=== PATIENT | male | born 1995 | race Caucasian/White ===

== ENCOUNTER 2021-08-23 20:57 | Inpatient (IN) | payer OTHER ==
--- NOTE | 2021-08-23 23:59 | ED ---
URI HPI - General Chief Complaint: Upper Respiratory Infection Stated Complaint: Cough,Congestion Time Seen by Provider: 08/23/21 23:26 Source: patient Mode of arrival: ambulatory Limitations: no limitations - History of Present Illness Initial Comments: This patient is 26-year-old man presents with cough that is been going on since sometime in June. The patient also had some left-sided chest pain that radiated up towards the neck but that was a few weeks ago. He states that he did some Internet research and feels that the symptoms were consistent with pleuritis. The pains have resolved now. Patient states that initially there was only clear sputum. Recently he has had some yellowish sputum and states that there is a foul odor. The patient did see a new primary physician a few weeks ago for this and felt that at the time symptoms seem to be due to ALLERGIES. He has taken a course medication without much relief. Then the sputum change occurred so he presents here for reevaluation. MD Complaint: cough Onset/Timin -: month(s) Severity: moderate Severity scale (1-10): 0 Consistency: now resolved Improves With: nothing Worsens With: nothing Associated Symptoms: cough Treatments Prior to Arrival: none - Related Data Home Medications Medication Instructions Recorded Confirmed Albuterol Sulfate [Proair Hfa] 1 - 2 puff INHALATION RT-Q6H PRN 08/24/21 08/24/21 Budesonide-Formot 160-4.5 Mcg 2 puff INHALATION RT-BID 08/24/21 08/24/21 [Symbicort 160-4.5 Mcg Inhaler] Buprenorphine/Naloxone 8Mg/2Mg 1 film SL BID 08/24/21 08/24/21 [Suboxone 8-2Mg Film] Cetirizine HCl 10 mg PO DAILY PRN 08/24/21 08/24/21 Divalproex Sodium [Depakote] 125 mg PO TID 08/24/21 08/24/21 Divalproex Sodium [Depakote] 500 mg PO TID 08/24/21 08/24/21 Ergocalciferol [Vitamin D2 (1250 1,250 mcg PO Q7D 08/24/21 08/24/21 Mcg = 97790 Iu)] FLUoxetine HCL [PROzac] 20 mg PO DAILY 08/24/21 08/24/21 OLANZapine [ZyPREXA] 10 mg PO HS 08/24/21 08/24/21 hydrOXYzine HCL [Atarax] 25 mg PO TID 08/24/21 08/24/21 Allergies Allergy/AdvReac Type Severity Reaction Status Date / Time No Known Allergies Allergy Verified 08/24/21 08:31 Review of Systems ROS Statement: Those systems with pertinent positive or pertinent negative responses have been documented in the HPI. ROS Other: All systems not noted in ROS Statement are negative. Constitutional: Denies: fever, chills ENT: Denies: throat pain, congestion Respiratory: Reports: cough. Denies: dyspnea, wheezes, hemoptysis Cardiovascular: Denies: chest pain, palpitations, orthopnea, edema, syncope Gastrointestinal: Denies: abdominal pain, vomiting, diarrhea Genitourinary: Denies: dysuria, hematuria Musculoskeletal: Denies: back pain Skin: Denies: rash Neurological: Denies: headache, weakness Past Medical History Past Medical History: No Reported History History of Any Multi-Drug Resistant Organisms: None Reported Past Surgical History: No Surgical Hx Reported Past Psychological History: No Psychological Hx Reported Smoking Status: Current every day smoker Past Alcohol Use History: None Reported Past Drug Use History: None Reported - Past Family History Father Family Medical History: Liver Disease Additional Family Medical History / Comment(s): testicular cancer, scizophrenia Mother Family Medical History: Cancer Additional Family Medical History / Comment(s): rectal General Exam Limitations: no limitations General appearance: alert, in no apparent distress Head exam: Present: atraumatic, normocephalic Eye exam: Present: normal appearance. Absent: scleral icterus, conjunctival injection ENT exam: Present: normal oropharynx Neck exam: Present: normal inspection Respiratory exam: Present: normal lung sounds bilaterally. Absent: respiratory distress, wheezes, rales, rhonchi, stridor, chest wall tenderness, accessory muscle use, decreased breath sounds Cardiovascular Exam: Present: regular rate, normal rhythm, normal heart sounds. Absent: systolic murmur, diastolic murmur, rubs, gallop GI/Abdominal exam: Present: soft. Absent: distended, tenderness, guarding, rebound, rigid, mass Extremities exam: Present: normal inspection, normal capillary refill. Absent: pedal edema, calf tenderness Back exam: Present: normal inspection. Absent: CVA tenderness (R), CVA tenderness (L) Neurological exam: Present: alert Skin exam: Present: warm, dry, intact, normal color. Absent: rash Course Vital Signs 08/23/21 08/24/21 21:28 04:14 Temperature 99.5 F 101.0 F H Pulse Rate 116 H 97 Respiratory 18 18 Rate Blood Pressure 121/74 107/69 O2 Sat by Pulse 98 96 Oximetry Medical Decision Making - Lab Data Result diagrams: 08/25/21 06:01 08/25/21 06:01 Lab Results 08/24/21 08/24/21 08/24/21 Range/Units 01:01 01:02 01:02 WBC 16.5 H (3.8-10.6) k/uL RBC 3.85 L (4.30-5.90) m/uL Hgb 9.8 L (13.0-17.5) gm/dL Hct 32.3 L (39.0-53.0) % MCV 83.9 (80.0-100.0) fL MCH 25.4 (25.0-35.0) pg MCHC 30.3 L (31.0-37.0) g/dL RDW 12.9 (11.5-15.5) % Plt Count 291 (150-450) k/uL MPV 7.3 Neutrophils % 75 % Lymphocytes % 12 % Monocytes % 9 % Eosinophils % 2 % Basophils % 2 % Neutrophils # 12.4 H (1.3-7.7) k/uL Lymphocytes # 2.0 (1.0-4.8) k/uL Monocytes # 1.4 H (0-1.0) k/uL Eosinophils # 0.3 (0-0.7) k/uL Basophils # 0.3 H (0-0.2) k/uL PT 12.6 H (9.0-12.0) sec INR 1.2 H (<1.2) APTT 29.6 (22.0-30.0) sec D-Dimer 1.50 H (<0.60) mg/L FEU Sodium (137-145) mmol/L Potassium (3.5-5.1) mmol/L Chloride (98-107) mmol/L Carbon Dioxide (22-30) mmol/L Anion Gap mmol/L BUN (9-20) mg/dL Creatinine (0.66-1.25) mg/dL Est GFR (CKD-EPI)AfAm (>60 ml/min/1.73 sqM) Est GFR (CKD-EPI)NonAf (>60 ml/min/1.73 sqM) Glucose (74-99) mg/dL Calcium (8.4-10.2) mg/dL Total Bilirubin (0.2-1.3) mg/dL AST (17-59) U/L ALT (4-49) U/L Alkaline Phosphatase (38-126) U/L Troponin I (0.000-0.034) ng/mL NT-Pro-B Natriuret Pep pg/mL Total Protein (6.3-8.2) g/dL Albumin (3.5-5.0) g/dL Coronavirus (PCR) Not Detected (Not Detectd) 08/24/21 08/24/21 08/24/21 Range/Units 01:02 01:02 01:02 WBC (3.8-10.6) k/uL RBC (4.30-5.90) m/uL Hgb (13.0-17.5) gm/dL Hct (39.0-53.0) % MCV (80.0-100.0) fL MCH (25.0-35.0) pg MCHC (31.0-37.0) g/dL RDW (11.5-15.5) % Plt Count (150-450) k/uL MPV Neutrophils % % Lymphocytes % % Monocytes % % Eosinophils % % Basophils % % Neutrophils # (1.3-7.7) k/uL Lymphocytes # (1.0-4.8) k/uL Monocytes # (0-1.0) k/uL Eosinophils # (0-0.7) k/uL Basophils # (0-0.2) k/uL PT (9.0-12.0) sec INR (<1.2) APTT (22.0-30.0) sec D-Dimer (<0.60) mg/L FEU Sodium 138 (137-145) mmol/L Potassium 3.4 L (3.5-5.1) mmol/L Chloride 95 L (98-107) mmol/L Carbon Dioxide 31 H (22-30) mmol/L Anion Gap 12 mmol/L BUN <2 L (9-20) mg/dL Creatinine 0.62 L (0.66-1.25) mg/dL Est GFR (CKD-EPI)AfAm >90 (>60 ml/min/1.73 sqM) Est GFR (CKD-EPI)NonAf >90 (>60 ml/min/1.73 sqM) Glucose 120 H (74-99) mg/dL Calcium 8.3 L (8.4-10.2) mg/dL Total Bilirubin 0.4 (0.2-1.3) mg/dL AST 16 L (17-59) U/L ALT 10 (4-49) U/L Alkaline Phosphatase 114 (38-126) U/L Troponin I <0.012 (0.000-0.034) ng/mL NT-Pro-B Natriuret Pep 369 pg/mL Total Protein 6.7 (6.3-8.2) g/dL Albumin 3.1 L (3.5-5.0) g/dL Coronavirus (PCR) (Not Detectd) - EKG Data -: EKG Interpreted by Me EKG shows normal: sinus rhythm, axis (Normal), intervals (Normal), QRS complexes (Normal), ST-T waves (Normal) Rate: normal (Rate 89 bpm) Disposition Clinical Impression: Pneumonia, Lung abscess Disposition: ADMITTED IP TO THIS HOSP Condition: Serious Is patient prescribed a controlled substance at d/c from ED?: No
--- NOTE | 2021-08-24 00:46 | XR ---
EXAMINATION TYPE: XR chest 2V DATE OF EXAM: 08/24/2021 COMPARISON: NONE HISTORY: Short of breath TECHNIQUE: 2 view FINDINGS: There is a large area of airspace consolidation left lower lobe. Right lung is clear. Heart and mediastinum are normal. No pleural effusion. IMPRESSION: There is dense airspace consolidation left lower lobe consistent with bronchopneumonia.
[2021-08-24 01:19] LABS: Basophils # (A) 0.3 k/uL (0-0.2); Basophils % (A) 2 %; Eosinophils # (A) 0.3 k/uL (0-0.7); Eosinophils % (A) 2 %; HCT 32.3 % (39.0-53.0); HGB 9.8 gm/dL (13.0-17.5); Lymphocytes % (A) 12 %; MCH 25.4 pg (25.0-35.0); MCHC 30.3 g/dL (31.0-37.0); MCV 83.9 fL (80.0-100.0); Mean Platelet Volume 7.3; Monocytes # (A) 1.4 k/uL (0-1.0); Monocytes % (A) 9 %; Neutrophils # (A) 12.4 k/uL (1.3-7.7); Neutrophils % (A) 75 %; Platelet Count 291 k/uL (150-450); RBC 3.85 m/uL (4.30-5.90); RDW 12.9 % (11.5-15.5); WBC 16.5 k/uL (3.8-10.6)
[2021-08-24 01:31] LABS: ALT 10 U/L (4-49); AST 16 U/L (17-59); African American GFR (CKD) >90 (>60 ml/min/1.73 sqM); Albumin 3.1 g/dL (3.5-5.0); Alkaline Phosphatase 114 U/L (38-126); Anion Gap 12 mmol/L; Blood Urea Nitrogen <2 mg/dL (9-20); Calcium 8.3 mg/dL (8.4-10.2); Carbon Dioxide 31 mmol/L (22-30); Chloride 95 mmol/L (98-107); Glucose 120 mg/dL (74-99); Non-African American GFR(CKD) >90 (>60 ml/min/1.73 sqM); Potassium 3.4 mmol/L (3.5-5.1); Sodium 138 mmol/L (137-145); Total Bilirubin 0.4 mg/dL (0.2-1.3); Total Protein 6.7 g/dL (6.3-8.2)
[2021-08-24] MEDS ORDERED: AZITHROMYCIN 500 MG TAB PO STA (01:34)
[2021-08-24 01:41] LABS: INR 1.2 (<1.2); Partial Thromboplastin Time 29.6 sec (22.0-30.0); Prothrombin Time 12.6 sec (9.0-12.0)
--- NOTE | 2021-08-24 02:54 | CT ---
EXAMINATION TYPE: CT chest angio for PE DATE OF EXAM: 08/24/2021 COMPARISON: None HISTORY: elevated d dimer, chst pain, ciough CT DLP: 317.7 mGycm Automated exposure control for dose reduction was used. CONTRAST: Performed with IV Contrast, patient injected with 90 mL of Isovue 370. There are Three-D postprocessed images. There is some atelectasis left lower lobe. There is pleural thickening and fluid at the left medial left lower lobe.. There is a 10 cm complex mass at the left posterior lung base consistent with lung abscess. This contains air and fluid and debris. There is some left-sided bronchial and subcarinal ly mphadenopathy. No evidence of aortic aneurysm or dissection. No evidence of filling defect in the pulmonary arteries. There is no sign of adrenal mass. Upper abdominal soft tissues are intact. The thoracic spine is inta ct. No compression fracture. Sternum is intact. The ribs appear intact. There is minimal pleural thic kening in the posterior medial right lower lobe. IMPRESSION: No evidence of pulmonary embolism. There is large complex fluid collection in the left lower hemithorax that is probably a large lung a bscess that contains fluid level and mixed attenuation. There is pleural thickening posteriorly that could be empyema. There is minimal pleural thickening medial right lower lobe. There are enlarged sub carinal and left bronchial lymph nodes that are slightly reactive adenopathy. Necrotic tumor is in th e differential diagnosis.
[2021-08-24] MEDS ORDERED: PNEUMONIA PROTOCOL UTILIZED 1 EACH MISC PO PRN (03:21)
[2021-08-24] MEDS ORDERED: SODIUM CHLORIDE 0.9% 1,000 ML IV SCH (03:30)
[2021-08-24] MEDS ORDERED: SODIUM CHLORIDE 0.9% 1,000 ML IV ONE (03:39)
[2021-08-24] MEDS ORDERED: ACETAMINOPHEN TAB 325 MG TAB PO STA (04:12)
[2021-08-24] MEDS: SODIUM CHLORIDE 0.9% 1,000 ML IV STA ×2 (04:27→09:38)
[2021-08-24] MEDS ORDERED: POTASSIUM CHLORIDE ER 20 MEQ TAB.ER PO STA (05:03)
--- NOTE | 2021-08-24 05:04 | P.HPIM ---
History of Present Illness H&P Date: 08/24/21 Patient is a 26-year-old male with a PMH of polysubstance abuse presents to the emergency room with complaints of cough productive of foul smelling phlegm. The patient reports he has been experiencing a cough for 1-2 months which initially was productive of whitish phlegm which slowly became foul-smelling phlegm over the past 1 week. He also reports pleuritic left lateral chest wall pain. Denie s shortness of breath, nausea, vomiting, abdominal pain, diarrhea. Chest CTA revealed a large complex fluid collection in the left hemithorax consistent with a large lung abscess with enlarged subcarinal and left bronchial lymph nodes with a necrotic tumor in the differential diagnosis. EKG revealed sinus rhythm with short ND interval at [address]/T-wave changes noted as reviewed by me. Laboratory evaluation was remarkable for leukocytosis at 16.5, hemoglobin 9.8, potassium 3.4, troponin less than 0.012. Review of systems: Pertinent positives and negatives as discussed in HPI, a complete review of systems was performed and all other systems are negative. Physical examination: General: non toxic, no distress, appears at stated age, normal weight Derm: no unusual rashes/lesions no unusual ecchymoses, warm, dry Head: atraumatic, normocephalic, symmetric Eyes: EOMI, no lid lag, anicteric sclera, pupils equal round reactive to light ENT: Nose and ears atraumatic, no thrush, no pharyngeal erythema Neck: No thyromegaly, no cervical lymphadenopathy, trachea midline, supple Mouth: no lip lesion, mucus membranes moist Cardiovascular: S1S2 reg, no murmur, positive posterior tibial pulse bilateral, no edema, capillary refill less than 2 seconds Lungs: Left sided poor breath sounds and scattered rhonchi mid lung to base, no accessory muscle use Abdominal: soft, nontender to palpation, no guarding, no appreciable organomegaly, normal bowel sounds Ext: no gross muscle atrophy, muscle strength 5 out of 5 in all 4 extremities grossly, no contractures, Neuro: CN II-XI grossly intact, light touch intact all 4 extremities, finger to nose within normal limits, Psych: Alert, oriented, appropriate affect Assessment/plan Sepsis secondary to left lung abscess -Start Unasyn 3 g every 6 hourly -Pulmonary consult -IV fluids -Follow up blood cultures and sputum cultures Hypokalemia -Replace and monitor History of polysubstance abuse including heroin, methamphetamine, cocaine, alcohol use -Patient reports he is currently sober from all illicit substances as well as of alcohol for the past 4 months DVT prophylaxis -Heparin subcu The patient is admitted with an anticipated greater than 2 midnight stay for evaluation of lung abscess CODE STATUS: Full Code Discussed with: Patient Anticipated discharge date: 6/ hypokalemia -Replace and [id number] Anticipated discharge place: Home Past Medical History Past Medical History: No Reported History History of Any Multi-Drug Resistant Organisms: None Reported Past Surgical History: No Surgical Hx Reported Past Psychological History: No Psychological Hx Reported Smoking Status: Current every day smoker Past Alcohol Use History: None Reported Past Drug Use History: None Reported - Past Family History Father Family Medical History: Liver Disease Medications and Allergies Allergies Allergy/AdvReac Type Severity Reaction Status Date / Time No Known Allergies Allergy Verified 08/23/21 21:27 Physical Exam Vitals: Vital Signs Temp Pulse Resp BP Pulse Ox 08/24/21 04:14 101.0 F H 97 18 107/69 96 08/23/21 21:28 99.5 F 116 H 18 121/74 98 Intake and Output 08/23/21 08/23/21 08/24/21 14:59 22:59 06:59 Other: Weight 86.183 kg Results CBC & Chem 7: 08/24/21 01:02 08/24/21 01:02 Labs: Abnormal Lab Results - Last 24 Hours (Table) 08/24/21 08/24/21 08/24/21 Range/Units 01:02 01:02 01:02 WBC 16.5 H (3.8-10.6) k/uL RBC 3.85 L (4.30-5.90) m/uL Hgb 9.8 L (13.0-17.5) gm/dL Hct 32.3 L (39.0-53.0) % MCHC 30.3 L (31.0-37.0) g/dL Neutrophils # 12.4 H (1.3-7.7) k/uL Monocytes # 1.4 H (0-1.0) k/uL Basophils # 0.3 H (0-0.2) k/uL PT 12.6 H (9.0-12.0) sec INR 1.2 H (<1.2) D-Dimer 1.50 H (<0.60) mg/L FEU Potassium 3.4 L (3.5-5.1) mmol/L Chloride 95 L (98-107) mmol/L Carbon Dioxide 31 H (22-30) mmol/L BUN <2 L (9-20) mg/dL Creatinine 0.62 L (0.66-1.25) mg/dL Glucose 120 H (74-99) mg/dL Calcium 8.3 L (8.4-10.2) mg/dL AST 16 L (17-59) U/L Albumin 3.1 L (3.5-5.0) g/dL
[2021-08-24 07:22] LABS: African American GFR (CKD) >90 (>60 ml/min/1.73 sqM); Anion Gap 10 mmol/L; Blood Urea Nitrogen 4 mg/dL (9-20); Calcium 7.6 mg/dL (8.4-10.2); Carbon Dioxide 26 mmol/L (22-30); Chloride 101 mmol/L (98-107); Glucose 126 mg/dL (74-99); Non-African American GFR(CKD) >90 (>60 ml/min/1.73 sqM); Potassium 3.5 mmol/L (3.5-5.1); Sodium 137 mmol/L (137-145)
[2021-08-24 07:30] LABS: HCT 26.5 % (39.0-53.0); Hypochromasia Slight; MCH 26.6 pg (25.0-35.0); MCHC 31.3 g/dL (31.0-37.0); MCV 85.1 fL (80.0-100.0); Mean Platelet Volume 7.5; Platelet Count 277 k/uL (150-450); RBC 3.12 m/uL (4.30-5.90); RDW 13.6 % (11.5-15.5); WBC 13.6 k/uL (3.8-10.6)
[2021-08-24 07:34] LABS: HGB 8.3 gm/dL (13.0-17.5)
[2021-08-24] MEDS ORDERED: metroNIDAZOLE-NS PMX 500 MG in SALINE 1 100ML.BAG IVPB SCH (08:00)
[2021-08-24] MEDS: AMPICILLIN-SULBACTAM 3 GM in SODIUM CHLORIDE 0.9% 100 ML IVPB SCH ×3 (09:37→21:27)
[2021-08-24] MEDS ORDERED: ALBUTEROL NEBULIZED 2.5 MG/3 ML INHALATION PRN (09:40)
[2021-08-24] MEDS: HEPARIN SODIUM,PORCINE/PF 5,000 UNIT/0.5 ML SYRINGE SQ SCH ×2 (09:46→15:45)
--- NOTE | 2021-08-24 11:58 | P.CNPUL ---
History of Present Illness Consult date: 08/24/21 Reason for consult: pneumonia History of present illness: This is a 26-year-old male patient who is currently admitted for lung abscess and a pulmonary consultation was requested accordingly. The patient has history of polysubstance abuse. He has done almost every drug in the past and his last drug intake was spent in a back in April 2021 and his been clean since then. He smokes tobacco. The patient admits that he hasn't had episodes of passing out in the past. Over the past 1-2 months, the patient feeling sick and ill all the time. His appetite has been poor. He has had pleuritic chest on the left side. He also had a foul smelling odor with coughing. No reported fever or chills. Appetite has been poor. His been tired and fatigued at all times. No reported nausea or vomiting. No abdominal pain. No altered mentation. He is currently on room air oxygen. He presented to the emergency department yesterday and a chest x-ray was done and this was followed up with a CAT scan of the chest that showed a large complex fluid collection in the left lower lobe representing a lung abscess. This is measuring around 10 cm in size and it is a lung abscess. There is also air and fluid and the breeze within the collection. There is also evidence of left-sided bronchial and subcarinal lymphadenopathy. No filling defects in the pulmonary artery and the right lung is essentially clear. The patient was admitted to the hospital. The white cell count currently is at 13.6 and his hemoglobin is at 8.3. The patient has normal coagulation profile. D-dimer is at 1.5. Renal function is stable with a creatinine of 0.6 and the sodium level is at 137. His COVID 19 testing is been negative. The patient states that he has checked himself for HIV around 2 weeks ago and he tested negative. He has history of seizure disorder. His last episode of seizure was in May 2021. His been on Depakote. No issues with alcoholism. The patient has been also on albuterol and a steroid inhaler for history of bronchial asthma and the patient is demented on Symbicort on outpatient basis. No significant asthmatic complications over the years. Review of Systems Constitutional: Reports fatigue, Reports lethargy, Reports weakness Eyes: denies as per HPI, denies blurred vision, denies bulging eye, denies decreased vision, denies diplopia, denies discharge, denies dry eye, denies irritation, denies itching, denies pain, denies photophobia, denies loss of peripheral vision, denies loss of vision, denies tunnel vision/blind spots Ears: deny: decreased hearing, ear discharge, earache, tinnitus Ears, nose, mouth and throat: Reports as per HPI Breasts: absent: as per HPI, gynecomastia Cardiovascular: Reports decreased exercise tolerance, Reports dyspnea on exertion Respiratory: Reports cough, Reports dyspnea Gastrointestinal: Reports as per HPI Genitourinary: Reports as per HPI Musculoskeletal: Reports as per HPI Musculoskeletal: absent: ankle pain, ankle stiffness, ankle swelling Integumentary: Reports as per HPI Neurological: Reports as per HPI Psychiatric: Reports as per HPI Endocrine: Reports as per HPI Hematologic/Lymphatic: Reports as per HPI Allergic/Immunologic: Reports as per HPI Past Medical History Past Medical History: No Reported History Additional Past Medical History / Comment(s): takes albuterol and steroid inhaler for asthma, epilepsy treated with depakote per patient History of Any Multi-Drug Resistant Organisms: None Reported Past Surgical History: No Surgical Hx Reported Additional Past Anesthesia/Blood Transfusion Reaction / Comment(s): never had Past Psychological History: No Psychological Hx Reported Smoking Status: Current every day smoker Past Alcohol Use History: None Reported Past Drug Use History: None Reported - Past Family History Father Family Medical History: Liver Disease Additional Family Medical History / Comment(s): testicular cancer, scizophrenia Mother Family Medical History: Cancer Additional Family Medical History / Comment(s): rectal Medications and Allergies Home Medications Medication Instructions Recorded Confirmed Type Albuterol Sulfate [Proair Hfa] 1 - 2 puff INHALATION RT-Q6H PRN 08/24/21 08/24/21 History Budesonide-Formot 160-4.5 Mcg 2 puff INHALATION RT-BID 08/24/21 08/24/21 History [Symbicort 160-4.5 Mcg Inhaler] Buprenorphine/Naloxone 8Mg/2Mg 1 film SL BID 08/24/21 08/24/21 History [Suboxone 8-2Mg Film] Cetirizine HCl 10 mg PO DAILY PRN 08/24/21 08/24/21 History Divalproex Sodium [Depakote] 125 mg PO TID 08/24/21 08/24/21 History Divalproex Sodium [Depakote] 500 mg PO TID 08/24/21 08/24/21 History Ergocalciferol [Vitamin D2 (1250 1,250 mcg PO Q7D 08/24/21 08/24/21 History Mcg = 14117 Iu)] FLUoxetine HCL [PROzac] 20 mg PO DAILY 08/24/21 08/24/21 History OLANZapine [ZyPREXA] 10 mg PO HS 08/24/21 08/24/21 History hydrOXYzine HCL [Atarax] 25 mg PO TID 08/24/21 08/24/21 History Allergies Allergy/AdvReac Type Severity Reaction Status Date / Time No Known Allergies Allergy Verified 08/24/21 08:31 Physical Exam Vitals: Vital Signs Temp Pulse Pulse Resp BP BP Pulse Ox 08/24/21 08:00 98.4 F 78 16 99/56 97 08/24/21 06:09 98.9 F 08/24/21 05:41 17 08/24/21 04:14 101.0 F H 97 18 107/69 96 08/23/21 21:28 99.5 F 116 H 18 121/74 98 Intake and Output 08/23/21 08/24/21 08/24/21 22:59 06:59 14:59 Intake Total 1999 Balance 1999 Intake: Oral 1999 Other: Voiding Method Toilet # Voids 3 Weight 86.183 kg 86.183 kg General: non toxic, no distress, appears at stated age, normal weight Derm: no unusual rashes/lesions no unusual ecchymoses, warm, dry Head: atraumatic, normocephalic, symmetric Eyes: EOMI, no lid lag, anicteric sclera, pupils equal round reactive to light ENT: Nose and ears atraumatic, no thrush, no pharyngeal erythema Neck: No thyromegaly, no cervical lymphadenopathy, trachea midline, supple Mouth: no lip lesion, mucus membranes moist Cardiovascular: S1S2 reg, no murmur, positive posterior tibial pulse bilateral, no edema, capillary refill less than 2 seconds Lungs: Left sided poor breath sounds and scattered rhonchi mid lung to base, no accessory muscle use Abdominal: soft, nontender to palpation, no guarding, no appreciable organomegaly, normal bowel sounds Ext: no gross muscle atrophy, muscle strength 5 out of 5 in all 4 extremities grossly, no contractures, Neuro: CN II-XI grossly intact, light touch intact all 4 extremities, finger to nose within normal limits, Psych: Alert, oriented, appropriate affect Results - Laboratory Findings CBC and BMP: 08/24/21 06:04 08/24/21 06:04 PT/INR, D-dimer PT 12.6 sec (9.0-12.0) H 08/24/21 01:02 INR 1.2 (<1.2) H 08/24/21 01:02 D-Dimer 1.50 mg/L FEU (<0.60) H 08/24/21 01:02 Abnormal lab findings: Abnormal Labs 08/24/21 08/24/21 08/24/21 01:02 01:02 01:02 WBC 16.5 H RBC 3.85 L Hgb 9.8 L Hct 32.3 L MCHC 30.3 L Neutrophils # 12.4 H Monocytes # 1.4 H Basophils # 0.3 H PT 12.6 H INR 1.2 H D-Dimer 1.50 H Potassium 3.4 L Chloride 95 L Carbon Dioxide 31 H BUN <2 L Creatinine 0.62 L Glucose 120 H Calcium 8.3 L AST 16 L Albumin 3.1 L 08/24/21 08/24/21 06:04 06:04 WBC 13.6 H RBC 3.12 L Hgb 8.3 L D Hct 26.5 L MCHC Neutrophils # Monocytes # Basophils # PT INR D-Dimer Potassium Chloride Carbon Dioxide BUN 4 L Creatinine 0.65 L Glucose 126 H Calcium 7.6 L AST Albumin - Diagnostic Findings Chest x-ray: image reviewed CT scan - chest: image reviewed Assessment and Plan Plan: Lung abscess occupying the left lower lobe. This is a large complex structure measuring around 10 cm in size and it includes fluid, air and agrees. At this point in time, the patient will need percutaneous drainage. The patient is also on currently on IV Unasyn as a broad-spectrum antibiotic coverage. Consider staphylococcal versus gram-negative or anaerobic lung abscess. This could be potentially also polymicrobial. High risk for aspiration. History of seizure disorder History of polysubstance abuse Leukocytosis secondary to lung abscess History of bronchial asthma Plan Continue the current antibiotic coverage Proceed with a percutaneous drainage of the lung abscess. Discussed the case with interventional radiology Check a baseline pro-calcitonin level Consult infectious disease Heparin subcu for DVT prophylaxis Resume Depakote Provide the patient incentive spirometer We'll continue to follow
[2021-08-24] MEDS: DIVALPROEX SPRINKLE 125 MG CAP.SPRINK PO SCH ×3 (12:00→21:40)
[2021-08-24] MEDS: FLUoxetine HCL 20 MG CAP PO SCH (12:00)
[2021-08-24] MEDS: DIVALPROEX 500 MG TABLET.DR PO SCH ×2 (15:39→22:39)
[2021-08-24] MEDS: hydrOXYzine HCL 25 MG TAB PO SCH (15:39)
--- NOTE | 2021-08-24 16:14 | P.PN ---
Progress Note - Text Progress Note Date: 08/24/21 (seen at 0915) Patient by my partner this morning. He reports that he is feeling somewhat better. Still with some SOB and cough. DOing well otherwise. No history of pulm abscess in the past. No significant updates to plan of care. Patient to take home subaxone... notified he needs to bring it in original packaging.
[2021-08-24] MEDS: SYMBICORT 160-4.5 MCG INHALER INHALATION SCH (20:08)
[2021-08-24] MEDS ORDERED: AZITHROMYCIN 500 MG TAB PO SCH (21:00)
[2021-08-24] MEDS: ACETAMINOPHEN TAB 325 MG TAB PO PRN (21:30)
[2021-08-24] MEDS: OLANZapine 10 MG TAB PO SCH (21:40)
[2021-08-24] MEDS: LORATADINE 10 MG TAB PO PRN (21:41)
[2021-08-25] MEDS: hydrOXYzine HCL 25 MG TAB PO SCH ×4 (00:14→22:01)
[2021-08-25] MEDS: HEPARIN SODIUM,PORCINE/PF 5,000 UNIT/0.5 ML SYRINGE SQ SCH ×3 (00:16→17:31)
[2021-08-25] MEDS: AMPICILLIN-SULBACTAM 3 GM in SODIUM CHLORIDE 0.9% 100 ML IVPB SCH ×5 (02:20→20:55)
[2021-08-25 06:42] LABS: HCT 31.9 % (39.0-53.0); Hypochromasia Slight; MCH 26.5 pg (25.0-35.0); MCHC 30.7 g/dL (31.0-37.0); MCV 86.3 fL (80.0-100.0); Mean Platelet Volume 7.5; Platelet Count 279 k/uL (150-450); RDW 13.1 % (11.5-15.5); WBC 18.1 k/uL (3.8-10.6)
[2021-08-25 06:49] LABS: African American GFR (CKD) >90 (>60 ml/min/1.73 sqM); Anion Gap 10 mmol/L; Blood Urea Nitrogen 3 mg/dL (9-20); Calcium 8.1 mg/dL (8.4-10.2); Carbon Dioxide 27 mmol/L (22-30); Chloride 104 mmol/L (98-107); Glucose 104 mg/dL (74-99); Non-African American GFR(CKD) >90 (>60 ml/min/1.73 sqM); Potassium 4.3 mmol/L (3.5-5.1); Sodium 141 mmol/L (137-145)
[2021-08-25 06:55] LABS: HGB 9.8 gm/dL (13.0-17.5)
[2021-08-25] MEDS: SYMBICORT 160-4.5 MCG INHALER INHALATION SCH ×2 (07:36→20:10)
--- NOTE | 2021-08-25 08:04 | P.CONS ---
History of Present Illness - Reason for Consult Consult date: 08/24/21 Lung abscess Requesting physician: Berenice Reed - Chief Complaint Left-sided chest pain x few days - History of Present Illness Patient is a 26-year-old male with a past medical history significant for polysubstance abuse however the patient mentioning no drug use since April 2021 patient has not been feeling well for the last 1 to 2 months and has been complaining of decreased appetite left-sided pleuritic chest pain intensity could be 6-7 out of 10 and is gradually increasing intensity the patient also having a cough which is mild to moderate intensity with some purulent sputum with the symptom the patient presented to [facility] ER for evaluation patient did have a fever of 101 F did have elevated white count was 16.5 with a left shift BUN and creatinine has been normal blood culture has been being rechecked currently pending patient did have a chest x-ray dense airspace consolidation left lower lobe consistent with bronchopneumonia patient also have a CT angiogram of the chest that was negative for PE did shows large complex fluid collection in the left lower hemithorax probably a lung abscess patient was initially started on Rocephin and Zithromax which was discontinued patient was started on Unasyn infectious disease was consulted for further management of antibiotic therapy with consult to interventional radiology for drainage of this abscess Review of Systems Positive point has been mentioned in the HPI rest of the systems are negative Past Medical History Past Medical History: No Reported History Additional Past Medical History / Comment(s): takes albuterol and steroid inhaler for asthma, epilepsy treated with depakote per patient History of Any Multi-Drug Resistant Organisms: None Reported Past Surgical History: No Surgical Hx Reported Additional Past Anesthesia/Blood Transfusion Reaction / Comm: never had Past Psychological History: No Psychological Hx Reported Smoking Status: Current every day smoker Past Alcohol Use History: None Reported Past Drug Use History: None Reported - Past Family History Father Family Medical History: Liver Disease Additional Family Medical History / Comment(s): testicular cancer, scizophrenia Mother Family Medical History: Cancer Additional Family Medical History / Comment(s): rectal Medications and Allergies Home Medications Medication Instructions Recorded Confirmed Type Albuterol Sulfate [Proair Hfa] 1 - 2 puff INHALATION RT-Q6H PRN 08/24/21 08/24/21 History Budesonide-Formot 160-4.5 Mcg 2 puff INHALATION RT-BID 08/24/21 08/24/21 History [Symbicort 160-4.5 Mcg Inhaler] Buprenorphine/Naloxone 8Mg/2Mg 1 film SL BID 08/24/21 08/24/21 History [Suboxone 8-2Mg Film] Cetirizine HCl 10 mg PO DAILY PRN 08/24/21 08/24/21 History Divalproex Sodium [Depakote] 125 mg PO TID 08/24/21 08/24/21 History Divalproex Sodium [Depakote] 500 mg PO TID 08/24/21 08/24/21 History Ergocalciferol [Vitamin D2 (1250 1,250 mcg PO Q7D 08/24/21 08/24/21 History Mcg = 21519 Iu)] FLUoxetine HCL [PROzac] 20 mg PO DAILY 08/24/21 08/24/21 History OLANZapine [ZyPREXA] 10 mg PO HS 08/24/21 08/24/21 History hydrOXYzine HCL [Atarax] 25 mg PO TID 08/24/21 08/24/21 History Allergies Allergy/AdvReac Type Severity Reaction Status Date / Time No Known Allergies Allergy Verified 08/24/21 08:31 Physical Exam Vitals: Vital Signs Temp Pulse Pulse Resp BP BP Pulse Ox 08/24/21 08:00 98.4 F 78 16 99/56 97 08/24/21 06:09 98.9 F 08/24/21 05:41 17 08/24/21 04:14 101.0 F H 97 18 107/69 96 08/23/21 21:28 99.5 F 116 H 18 121/74 98 Intake and Output 08/23/21 08/24/21 08/24/21 22:59 06:59 14:59 Intake Total 1999 Balance 1999 Intake: Oral 1999 Other: Voiding Method Toilet # Voids 3 Weight 86.183 kg 86.183 kg GENERAL DESCRIPTION: Middle-aged male lying in bed, no distress. No tachypnea or accessory muscle of respiration use. HEENT: Shows Pallor , no scleral icterus. Oral mucous membrane is dry. No pharyngeal erythema or thrush NECK: Trachea central, no thyromegaly. LUNGS: Unlabored breathing. Decreased breath sound at the base. No wheeze or crackle. HEART: S1, S2, regular rate and rhythm. No loud murmur ABDOMEN: Soft, no tenderness , guarding or rigidity, no organomegaly EXTREMITIES: No edema of feet. SKIN: No rash, no masses palpable. NEUROLOGICAL: The patient is awake, alert, oriented x3, mood and affect normal. Results CBC & Chem 7: 08/25/21 06:01 08/25/21 06:01 Labs: Abnormal Lab Results - Last 24 Hours (Table) 08/24/21 08/24/21 08/24/21 Range/Units 01:02 01:02 01:02 WBC 16.5 H (3.8-10.6) k/uL RBC 3.85 L (4.30-5.90) m/uL Hgb 9.8 L (13.0-17.5) gm/dL Hct 32.3 L (39.0-53.0) % MCHC 30.3 L (31.0-37.0) g/dL Neutrophils # 12.4 H (1.3-7.7) k/uL Monocytes # 1.4 H (0-1.0) k/uL Basophils # 0.3 H (0-0.2) k/uL PT 12.6 H (9.0-12.0) sec INR 1.2 H (<1.2) D-Dimer 1.50 H (<0.60) mg/L FEU Potassium 3.4 L (3.5-5.1) mmol/L Chloride 95 L (98-107) mmol/L Carbon Dioxide 31 H (22-30) mmol/L BUN <2 L (9-20) mg/dL Creatinine 0.62 L (0.66-1.25) mg/dL Glucose 120 H (74-99) mg/dL Calcium 8.3 L (8.4-10.2) mg/dL AST 16 L (17-59) U/L Albumin 3.1 L (3.5-5.0) g/dL 08/24/21 08/24/21 Range/Units 06:04 06:04 WBC 13.6 H (3.8-10.6) k/uL RBC 3.12 L (4.30-5.90) m/uL Hgb 8.3 L D (13.0-17.5) gm/dL Hct 26.5 L (39.0-53.0) % MCHC (31.0-37.0) g/dL Neutrophils # (1.3-7.7) k/uL Monocytes # (0-1.0) k/uL Basophils # (0-0.2) k/uL PT (9.0-12.0) sec INR (<1.2) D-Dimer (<0.60) mg/L FEU Potassium (3.5-5.1) mmol/L Chloride (98-107) mmol/L Carbon Dioxide (22-30) mmol/L BUN 4 L (9-20) mg/dL Creatinine 0.65 L (0.66-1.25) mg/dL Glucose 126 H (74-99) mg/dL Calcium 7.6 L (8.4-10.2) mg/dL AST (17-59) U/L Albumin (3.5-5.0) g/dL Assessment and Plan (1) Lung abscess Current Visit: Yes Status: Acute Code(s): J85.2 - ABSCESS OF LUNG WITHOUT PNEUMONIA SNOMED Code(s): 06350989 Plan: 1patient presented to hospital with symptoms with on for more than a month with left-sided chest pain cough purulent sputum with evidence of lung abscess on CT angiogram question of possible aspiration etiology and will need to cover for the polymicrobial wayne associated this infection. 2we will wait for the IR drainage of this abscess and the fluid should be sent for cultures routine as well as fungal and AFB clinical not behaving as TB pneumonia. 3continue with Unasyn 3 g every 6 hours. We will follow on clinical condition and cultures to further adjust medication if needed Thank you for this consultation will follow this patient along with you Time with Patient: Greater than 30
[2021-08-25] MEDS: FLUoxetine HCL 20 MG CAP PO SCH (08:35)
[2021-08-25] MEDS: DIVALPROEX SPRINKLE 125 MG CAP.SPRINK PO SCH ×3 (08:35→22:01)
[2021-08-25] MEDS: DIVALPROEX 500 MG TABLET.DR PO SCH ×3 (08:35→20:56)
--- NOTE | 2021-08-25 11:31 | P.PN ---
Subjective Progress Note Date: 08/25/21 76-year-old male patient with a lung abscess and the patient is supposed to undergo an pigtail catheter insertion and drainage of a left lung abscess by interventional radiology. The patient is clinically doing well. No new complaints. His white cell count today is at her 18.1 and the patient's pro porter citonin level was at 0.27. He is hemodynamically stable. He remains on IV antibiotics and he was seen by infectious disease and he was kept on IV Unasyn Objective - Vital Signs Vital signs: Vital Signs Temp 99.2 F 08/25/21 07:31 Pulse 91 08/25/21 07:31 Resp 16 08/25/21 07:31 BP 111/70 08/25/21 07:31 Pulse Ox 95 08/25/21 07:31 FiO2 Intake & Output 08/24/21 08/25/21 08/25/21 18:59 06:59 18:59 Intake Total 800 Output Total 2 Balance 798 Intake: Oral 800 Output: Urine 2 Other: # Voids 2 - Exam General: non toxic, no distress, appears at stated age, normal weight Derm: no unusual rashes/lesions no unusual ecchymoses, warm, dry Head: atraumatic, normocephalic, symmetric Eyes: EOMI, no lid lag, anicteric sclera, pupils equal round reactive to light ENT: Nose and ears atraumatic, no thrush, no pharyngeal erythema Neck: No thyromegaly, no cervical lymphadenopathy, trachea midline, supple Mouth: no lip lesion, mucus membranes moist Cardiovascular: S1S2 reg, no murmur, positive posterior tibial pulse bilateral, no edema, capillary refill less than 2 seconds Lungs: Left sided poor breath sounds and scattered rhonchi mid lung to base, no accessory muscle use Abdominal: soft, nontender to palpation, no guarding, no appreciable organomegaly, normal bowel sounds Ext: no gross muscle atrophy, muscle strength 5 out of 5 in all 4 extremities grossly, no contractures, Neuro: CN II-XI grossly intact, light touch intact all 4 extremities, finger to nose within normal limits, Psych: Alert, oriented, appropriate affect - Labs CBC & Chem 7: 08/25/21 06:01 08/25/21 06:01 Labs: Abnormal Lab Results - Last 24 Hours (Table) 08/24/21 08/25/21 08/25/21 Range/Units 06:04 06:01 06:01 WBC 18.1 H (3.8-10.6) k/uL RBC 3.70 L (4.30-5.90) m/uL Hgb 9.8 L D (13.0-17.5) gm/dL Hct 31.9 L (39.0-53.0) % MCHC 30.7 L (31.0-37.0) g/dL BUN 3 L (9-20) mg/dL Glucose 104 H (74-99) mg/dL Calcium 8.1 L (8.4-10.2) mg/dL Procalcitonin 0.27 H (0.02-0.09) ng/mL Microbiology - Last 24 Hours (Table) 08/24/21 21:45 Sputum Culture - Preliminary Sputum 08/24/21 00:55 Blood Culture - Preliminary Blood No Growth after 24 hours 08/24/21 00:40 Blood Culture - Preliminary Blood No Growth after 24 hours Assessment and Plan Plan: Lung abscess occupying the left lower lobe. This is a large complex structure measuring around 10 cm in size and it includes fluid, air and agrees. At this point in time, the patient will need percutaneous drainage. The patient is also on currently on IV Unasyn as a broad-spectrum antibiotic coverage. Consider staphylococcal versus gram-negative or anaerobic lung abscess. This could be potentially also polymicrobial. High risk for aspiration. History of seizure disorder History of polysubstance abuse Leukocytosis secondary to lung abscess History of bronchial asthma Plan Patient was seen by various consultants. The patient will be having a pigtail catheter insertion today to drain the abscess and will send the fluid for cultures and orders were written. The patient will be kept on IV Unasyn for now. We are the will involve cardiothoracic surgery at a later stage to help us with TPA administration if needed and/or thoracoscopic lung surgery. Needed. Heparin subcu for DVT prophylaxis Depakote for seizures I Provide the patient incentive spirometer We'll continue to follow
--- NOTE | 2021-08-25 12:27 | CT ---
EXAMINATION TYPE: CT chest tube insertion DATE OF EXAM: 08/25/2021 COMPARISON: 08/24/2021 HISTORY: Pneumonia, lung abscess, chest tube insertion CT DLP: 415 mGycm The procedure is discussed with the patient, the risks, complications, benefits and alternatives, wer e discussed and any questions were answered. Informed consent was obtained. The patient is placed p geoffrey on the CT table, prepped and draped in the usual sterile fashion. Utilizing a 22-gauge Chiba needle access into left pulmonary abscess was achieved with conversion to an 0.035 system, serial dilation to 8 Burkinan and placement of an 8 Burkinan drainage catheter.. Samples obtained and sent to pathology for analysis. All elements of maximal barrier and sterile technique were utilized. The patient remained stable throughout the procedure with no immediate postprocedural complication. IMPRESSION: 1. Successful CT guided left chest drainage tube insertion for pulmonary abscess.
[2021-08-25] MEDS: ACETAMINOPHEN TAB 325 MG TAB PO PRN ×2 (12:48→20:57)
[2021-08-25] MEDS ORDERED: DORNASE ALFA 5 MG in SODIUM CHLORIDE 0.9% 50 ML IRRIGATION ONE (12:59)
[2021-08-25] MEDS ORDERED: ALTEPLASE 10 MG in SODIUM CHLORIDE 0.9% 50 ML IRRIGATION ONE (12:59)
--- NOTE | 2021-08-25 14:34 | P.GSCN ---
History of Present Illness Consult date: 08/25/21 Reason for Consult: Left lung abscess Requesting physician: Domonique Cross History of present illness: This is a 26-year-old gentleman who follows with her primary care physician out of [facility]. He is a past medical history significant for epilepsy with his last seizure in May 2021, asthma, polysubstance abuse in which he reports that he has been in rehab for since April 2021. He also has a history of chronic ongoing tobacco abuse. The patient reports over the past couple of months he has been having an ongoing cough which is subsequently gotten worse over the past couple of weeks with coughing up thick foul-smelling sputum. He also reports that he did seek medical attention at his primary care office around 3-4 weeks ago and was subsequently put on a steroid inhaler and zyrtec. Since receiving the steroid inhaler and ALLERGY medication his symptoms did not improve. He denies any recent fever, chills, nausea, vomiting, diarrhea, constipation, hemoptysis, hematemesis or recent trauma. He has been feeling fatigued, tired and with lack of appetite over the past couple weeks. Subsequ ently, due to his symptoms not improving he reported to the emergency department here at [facility] for further evaluation and treatment recommendations. A chest x-ray was completed which showed a dense airspace consolidation to his left lower lobe consistent with bronchopneumonia. For further evaluation a chest CTA was completed which demonstrated no evidence of pulmonary embolism, and a large complex fluid collection in the left lower lobe representing a lung abscess. Due to the findings on the above-mentioned studies and is presenting symptoms he was admitted to the hospital for further evaluation and treatment recommendations. COVID-19 testing was complete and was negative. Initial laboratory results showed a WBC count of 16.5, hemoglobin 9.8, hematocrit 32.3, platelets 291, PT 12.6, INR 1.2, PTT 29.6, d-dimer 1.50, sodium 138, potassium 3.4, chloride 95, CO2 31, BUN less than 2, creatinine 0.62, glucose 120, calcium 8.3, AST 16, ALT 10, troponin was less than 0.012 and a BNP was 369. He also had a calcitonin level completed which was 0.27. Subsequently, due to the findings of a left lower lobe lung abscess a consult was placed to Dr. Jason Poole from cardiothoracic surgery for further evaluation and treatment recommendations. Review of Systems A 14 point review of systems was completed and was negative except as mentioned in HPI. Past Medical History Past Medical History: Asthma Additional Past Medical History / Comment(s): takes albuterol and steroid inhaler for asthma, epilepsy treated with depakote per patient History of Any Multi-Drug Resistant Organisms: None Reported Past Surgical History: No Surgical Hx Reported Additional Past Anesthesia/Blood Transfusion Reaction / Comm: never had Past Psychological History: No Psychological Hx Reported Smoking Status: Current every day smoker Past Alcohol Use History: None Reported Additional Past Alcohol Use History / Comment(s): History of polysubstance abuse, has been in rehab for his polysubstance abuse since April 2021. Past Drug Use History: None Reported Additional Drug Use History / Comment(s): History of polysubstance abuse, has been in rehab for his polysubstance abuse since April 2021. - Past Family History Father Family Medical History: Cancer, Liver Disease Additional Family Medical History / Comment(s): testicular cancer, scizophrenia Mother Family Medical History: Asthma, Cancer (Rectal), Hypertension Additional Family Medical History / Comment(s): Chronic back pain Medications and Allergies Home Medications Medication Instructions Recorded Confirmed Type Albuterol Sulfate [Proair Hfa] 1 - 2 puff INHALATION RT-Q6H PRN 08/24/21 08/24/21 History Budesonide-Formot 160-4.5 Mcg 2 puff INHALATION RT-BID 08/24/21 08/24/21 History [Symbicort 160-4.5 Mcg Inhaler] Buprenorphine/Naloxone 8Mg/2Mg 1 film SL BID 08/24/21 08/24/21 History [Suboxone 8-2Mg Film] Cetirizine HCl 10 mg PO DAILY PRN 08/24/21 08/24/21 History Divalproex Sodium [Depakote] 125 mg PO TID 08/24/21 08/24/21 History Divalproex Sodium [Depakote] 500 mg PO TID 08/24/21 08/24/21 History Ergocalciferol [Vitamin D2 (1250 1,250 mcg PO Q7D 08/24/21 08/24/21 History Mcg = 82673 Iu)] FLUoxetine HCL [PROzac] 20 mg PO DAILY 08/24/21 08/24/21 History OLANZapine [ZyPREXA] 10 mg PO HS 08/24/21 08/24/21 History hydrOXYzine HCL [Atarax] 25 mg PO TID 08/24/21 08/24/21 History Allergies Allergy/AdvReac Type Severity Reaction Status Date / Time No Known Allergies Allergy Verified 08/24/21 08:31 Surgical - Exam Vital Signs Temp Pulse Resp BP Pulse Ox 99.5 F 116 H 18 121/74 98 08/23/21 21:28 08/23/21 21:28 08/23/21 21:28 08/23/21 21:28 08/23/21 21:28 - General well developed, well nourished, no distress, no pain - Eyes PERRL, normal ocular movement, no pale, no icteric - ENT normal pinna, normal nares, normal mucosa, no hearing loss, no congestion, poor chcf - Neck Neck is supple, no JVD, no lymphadenopathy. no masses, no bruits, trachea midline, no venous distension - Respiratory Lungs sounds essentially clear to his right lobes, diminished to his left lower lobe with few scattered rhonchi throughout his left lobes. Respirations are symmetrical and nonlabored. Achieving 1500 mL on his incentive spirometry. Loo se productive cough with thin green tinged foul smelling sputum. - Cardiovascular Regular rhythm and rate. S1 and S2 present, negative for S3, gallop or murmur. Peripheral pulses palpable. No edema present. - Abdomen Abdomen is soft, nontender and nondistended. Active bowel sounds present ABDOMINAL QUADRANTS. NO GUARDING OR RIGIDITY. NO ORGANOMEGALY APPRECIATED. - Genitourinary Deferred - Rectum Deferred - Integumentary Skin is warm and dry. No clubbing or cyanosis is present. Left chest pigtail catheter dressing clean, dry and intact. no rash, no growths, no abnormal pigmentation - Neurologic No focal deficits. normal coordination, normal sensation - Musculoskeletal Moves bilateral upper and lower extremities with equal strength bilaterally. normal gait, normal posture - Psychiatric oriented to time, oriented to person, oriented to place, speech is normal, memory intact Results - Labs 08/25/21 06:01 08/25/21 06:01 Abnormal Lab Results - Last 24 Hours (Table) 08/24/21 08/25/2122 Range/Units 06:04 06:01 06:01 WBC 18.1 H (3.8-10.6) k/uL RBC 3.70 L (4.30-5.90) m/uL Hgb 9.8 L D (13.0-17.5) gm/dL Hct 31.9 L (39.0-53.0) % MCHC 30.7 L (31.0-37.0) g/dL BUN 3 L (9-20) mg/dL Glucose 104 H (74-99) mg/dL Calcium 8.1 L (8.4-10.2) mg/dL Procalcitonin 0.27 H (0.02-0.09) ng/mL Microbiology - Last 24 Hours (Table) 08/24/21 21:45 Sputum Culture - Preliminary Sputum 08/24/21 00:55 Blood Culture - Preliminary Blood No Growth after 24 hours 08/24/21 00:40 Blood Culture - Preliminary Blood No Growth after 24 hours Diabetes panel 08/25/21 Range/Units 06:01 Sodium 141 (137-145) mmol/L Potassium 4.3 (3.5-5.1) mmol/L Chloride 104 (98-107) mmol/L Carbon Dioxide 27 (22-30) mmol/L BUN 3 L (9-20) mg/dL Creatinine 0.66 (0.66-1.25) mg/dL Glucose 104 H (74-99) mg/dL Calcium 8.1 L (8.4-10.2) mg/dL Calcium panel 08/25/21 Range/Units 06:01 Calcium 8.1 L (8.4-10.2) mg/dL Pituitary panel 08/25/21 Range/Units 06:01 Sodium 141 (137-145) mmol/L Potassium 4.3 (3.5-5.1) mmol/L Chloride 104 (98-107) mmol/L Carbon Dioxide 27 (22-30) mmol/L BUN 3 L (9-20) mg/dL Creatinine 0.66 (0.66-1.25) mg/dL Glucose 104 H (74-99) mg/dL Calcium 8.1 L (8.4-10.2) mg/dL Adrenal panel 08/25/21 Range/Units 06:01 Sodium 141 (137-145) mmol/L Potassium 4.3 (3.5-5.1) mmol/L Chloride 104 (98-107) mmol/L Carbon Dioxide 27 (22-30) mmol/L BUN 3 L (9-20) mg/dL Creatinine 0.66 (0.66-1.25) mg/dL Glucose 104 H (74-99) mg/dL Calcium 8.1 L (8.4-10.2) mg/dL - Imaging Chest x-ray: report reviewed, image reviewed CT scan - chest: report reviewed, image reviewed Assessment and Plan Assessment: 1. Left lower lobe lung abscess, status post placement of left pleural pigtail catheter by interventional radiology 2. Leukocytosis, secondary to left lower lobe lung abscess 3. History of asthma 4. History of seizure disorder, states his last seizure was in May 2021 5. History of polysubstance abuse, currently in rehab since April 2021 6. Chronic ongoing tobacco abuse Plan: The patient was seen and examined at his bedside on the fourth floor medical surgical unit. His chart and diagnostics were reviewed. This case was discussed in detail with Dr. Jason Poole from cardiothoracic surgery. Once the patient has had his left sided pigtail catheter placed we will instill alteplase/dornase. Once the alteplase and dornase have been instilled the patient will be turned every 15 minutes supine, left side, right side, and prone as tolerated for 1 hour. Once the alteplase and dornase has been instilled for [address] his left pigtail catheter to low continuous wall suction - 20 cm H2O. The patient has been counseled and discussed with the patient on the importance of smoking cessation. Encourage use of incentive spirometry 10 times every hour while awake. Pain control per carb when necessary orders. Continue to monitor daily chest x-rays. Medical management and other comorbidities per primary care service. Antibiotic management per infectious disease, currently on Unasyn for antibiotic coverage. Continue to follow sputum culture and blood culture results. More recommendations to follow based on patient's clinical course. Thank you Dr. Cross for this consult and we look for to working with you in the care of this patient. I have personally seen and examined the patient, performed the documentation and the assessment and plan as written. Number of minutes spent on the visit, 30 minutes. Don Schwartz BACK END ENGINEER-C The patient is a 26 y/o male with a history of substance abuse who was found to have a left sided fluid collection in his thorax worrisome for empyema vs. lung abscess. A pigtail catheter was placed by IR. Plan to treat with alteplase for now. Antibiotics per ID. No plan for surgical intervention at this time. I have personally seen and examined the patient, reviewed the documentation and the assessment and plan as written. Number of minutes spent on the visit, 45 minutes. Jason Poole M.D.
--- NOTE | 2021-08-25 15:18 | P.PN ---
Subjective Progress Note Date: 08/25/21 (deayed charting seen at 1015) Patient is a 26-year-old male with prior history of polysubstance abuse sober for 4 months, asthma, and epilepsy who presented to the ER with complaints of cough and foul-smelling sputum. In the ER he underwent an extensive evaluation. Initial vital signs were within normal limits. However he then spiked a fever of 101. Laboratory analysis demonstrated a white blood cell count of 16.5, hemoglobin 9.8, d-dimer 1.5, potassium 3.4. COVID-19 testing was negative. Chest x-ray showed a large area of airspace consolidation in the left lower lobe. CT of the chest showed a large complex fluid collection in the left lower hemithorax likely related to large lung abscess. Patient was started on IV fluids and Unasyn. He was admitted for further monitoring. Pulmonary was consulted. He was seen by infectious disease who recommended continuing Unasyn. He underwent IR guided chest tube placement for pulmonary abscess on 08/25. He was seen by cardiothoracic surgery. The plan on insulin multiple place into the chest tube. Patient seen and examined at bedside. He continues to have some cough with chest pain when he is coughing but overall feels comfortable. He states his breathing is fine. His cough is less frequent. He is feeling better than on admission. General: Ill-appearing, no distress, appears at stated age Derm: warm, dry Head: atraumatic, normocephalic, symmetric Eyes: EOMI, no lid lag, anicteric sclera Mouth: no lip lesion, mucus membranes dry Cardiovascular: S1S2 reg, no murmur, positive posterior tibial pulse bilateral, Lungs: Course bs bilateral, no rhonchi, no rales , no accessory muscle use Abdominal: soft, nontender to palpation, no guarding, no appreciable organomegaly Ext: no gross muscle atrophy, no edema, no contractures Neuro: CN II-XI grossly intact, no focal neuro deficits Psych: Alert, oriented, appropriate affect Assessment/plan: Left lung abscess with sepsis status post pigtail catheter insertion 08/25 -Continue with Unasyn -Appreciate pulmonary and infectious disease recommendations -CT surgery plans on instilling TPA into the chest tube -IV fluids -Pain control History of opiate dependency -In remission on Suboxone Seizure disorder -Depakote Asthma without exacerbation -Bronchodilators when necessary and scheduled DVT prophylaxis: Heparin Discussed with: Patient, nursing, Dr. Cross Anticipated discharge: Pending clinical course Anticipated discharge place: Home A total of 45 minutes was spent on the care of this complex patient more than 50% of the time was spent in counseling and care coordination. Objective - Vital Signs Vital signs: Vital Signs Temp 97.3 F L 08/25/21 14:00 Pulse 57 L 08/25/21 14:00 Resp 17 08/25/21 14:00 BP 125/67 08/25/21 14:00 Pulse Ox 97 08/25/21 14:00 FiO2 Intake & Output 08/24/21 08/25/21 08/25/21 18:59 06:59 18:59 Intake Total 800 Output Total 2 Balance 798 Intake: Oral 800 Output: Urine 2 Other: # Voids 2 - Labs CBC & Chem 7: 08/25/21 06:01 08/25/21 06:01 Labs: Abnormal Lab Results - Last 24 Hours (Table) 08/24/21 08/25/21 08/25/21 Range/Units 06:04 06:01 06:01 WBC 18.1 H (3.8-10.6) k/uL RBC 3.70 L (4.30-5.90) m/uL Hgb 9.8 L D (13.0-17.5) gm/dL Hct 31.9 L (39.0-53.0) % MCHC 30.7 L (31.0-37.0) g/dL BUN 3 L (9-20) mg/dL Glucose 104 H (74-99) mg/dL Calcium 8.1 L (8.4-10.2) mg/dL Procalcitonin 0.27 H (0.02-0.09) ng/mL Microbiology - Last 24 Hours (Table) 08/24/21 21:45 Sputum Culture - Preliminary Sputum 08/24/21 00:55 Blood Culture - Preliminary Blood No Growth after 24 hours 08/24/21 00:40 Blood Culture - Preliminary Blood No Growth after 24 hours
[2021-08-25] MEDS: KETOROLAC 15 MG/ML 1 ML VIAL IVP SCH (17:09)
[2021-08-25] MEDS: OLANZapine 10 MG TAB PO SCH (20:56)
[2021-08-25] MEDS: LORATADINE 10 MG TAB PO PRN (20:57)
[2021-08-26] MEDS: KETOROLAC 15 MG/ML 1 ML VIAL IVP SCH ×4 (00:03→18:00)
[2021-08-26] MEDS: HEPARIN SODIUM,PORCINE/PF 5,000 UNIT/0.5 ML SYRINGE SQ SCH ×3 (01:54→17:58)
[2021-08-26] MEDS: AMPICILLIN-SULBACTAM 3 GM in SODIUM CHLORIDE 0.9% 100 ML IVPB SCH ×4 (04:05→22:02)
--- NOTE | 2021-08-26 07:54 | XR ---
EXAMINATION TYPE: XR chest 1V portable DATE OF EXAM: 08/26/2021 COMPARISON: 08/24/2021 INDICATION: Left lung abscess TECHNIQUE: Single frontal view of the chest is obtained. FINDINGS: The heart size is normal. The pulmonary vasculature is normal. There is a catheter present at the left base. Small collection may be present. Infiltrate may be slig htly improved over the interval. There is developing infiltrate at the right lateral lung base. Corre late for pneumonia. IMPRESSION: 1. Developing right basilar infiltrate. Correlate for pneumonia or atelectasis. 2. There may be slight improvement of the infiltrate in the left base. Catheter is present.
[2021-08-26] MEDS: SYMBICORT 160-4.5 MCG INHALER INHALATION SCH ×2 (08:30→20:52)
[2021-08-26] MEDS: ACETAMINOPHEN TAB 325 MG TAB PO PRN (08:42)
[2021-08-26] MEDS: hydrOXYzine HCL 25 MG TAB PO SCH ×3 (08:43→21:44)
[2021-08-26] MEDS: DIVALPROEX 500 MG TABLET.DR PO SCH ×3 (08:43→21:44)
[2021-08-26] MEDS: DIVALPROEX SPRINKLE 125 MG CAP.SPRINK PO SCH ×3 (08:43→21:44)
[2021-08-26] MEDS: FLUoxetine HCL 20 MG CAP PO SCH (08:44)
[2021-08-26] MEDS ORDERED: DORNASE ALFA 5 MG in SODIUM CHLORIDE 0.9% 50 ML IRRIGATION ONE (10:44)
[2021-08-26] MEDS ORDERED: ALTEPLASE 10 MG in SODIUM CHLORIDE 0.9% 50 ML IRRIGATION ONE (10:44)
--- NOTE | 2021-08-26 11:07 | P.PN ---
Subjective Progress Note Date: 08/26/21 Principal diagnosis: Left lung abscess with persistent cough and foul-smelling tenacious green tinged sputum. Past medical history significant for epilepsy with his last seizure in May 2021, asthma, polysubstance abuse in which he reports that he has been in rehab for since April 2021. He also has a history of chronic ongoing tobacco abuse. The patient was seen and examined in follow-up today 08/26/2021 at his bedside on the fourth floor medical surgical unit. Currently, the patient is laying in bed, is awake, alert, oriented 3 and is in no acute distress. Denies any complaints of shortness of breath or pain at this time. Oxygen saturations are 97% on room air and he is achieving 1500 mL to 2000 mL on his incentive spirometry with encouragement. Left chest pigtail catheter was placed by interventional radiology yesterday. Alteplase/dornase was instilled into the pigtail catheter with 170 mL of purulent drainage since the catheter has been placed. Once the alteplase and dornase were instilled yesterday the patient did have an episode of coughing with copious amounts of thin green tinged watery sputum. The patient reports that he feels improved this morning since having the left pigtail catheter placed. His T-max temperature in the last 24 hours is 101.0F. Chest x-ray this morning shows slight improvement of the infiltrate in the left lung base with the left pigtail catheter present. He remains on Unasyn for antibiotic coverage managed by infectious disease. Objective - Vital Signs Vital signs: Vital Signs Temp 97.1 F L 08/26/21 08:00 Pulse 72 08/26/21 08:00 Resp 16 08/26/21 08:00 BP 103/63 08/26/21 08:00 Pulse Ox 97 08/26/21 08:00 FiO2 Intake & Output 08/25/21 08/26/21 08/26/21 18:59 06:59 18:59 Intake Total 300 1000 Balance 300 1000 Intake: Oral 300 1000 Other: # Voids 3 - Exam CONSTITUTIONAL: Lying in bed on the fourth floor medical surgical unit, appears comfortable, cooperative, no apparent acute distress. HEENT: Neck is supple, no JVD, no lymphadenopathy. RESPIRATORY: Lungs sounds diminished to his left lower lobe, essentially clear to his right lobes. Respirations are symmetrical and nonlabored. Currently on room air with oxygen saturations 97%. Able to achieve 150-2000 mL on his incentive spirometry. Strong productive cough with green tinged foul-smelling sputum. Left chest pigtail catheter remains in place to low continuous wall suction -20 cm H2O. No air leak is present. Draining 170 mL of purulent colored drainage in the last 24 hours. CARDIOVASCULAR: Regular rhythm and rate. S1 and S2 present, negative for S3, gallop or murmur. Palpable peripheral pulses bilaterally. No calf pain or tenderness noted. GASTROINTESTINAL: Abdomen soft, nontender, nondistended. Active bowel sounds present 4 quadrants. Tolerating diet. No guarding or rigidity. GENITOURINARY: Continues to void. INTEGUMENTARY: Skin is warm and dry with no evidence of clubbing or cyanosis. Left chest pigtail catheter dressing is clean, dry and intact. NEUROLOGIC: Cranial nerves II through XII intact. No focal deficits. MUSKULOSKELETAL: Able to move all extremities, strength equal bilaterally. PSYCHIATRIC: Alert and oriented to person place and time, appropriate affect, intact judgment and insight. - Allied health notes Allied health notes reviewed: nursing - Labs CBC & Chem 7: 08/25/21 06:01 08/25/21 06:01 Labs: Microbiology - Last 24 Hours (Table) 08/25/21 12:00 Gram Stain - Preliminary Pleural Fluid Body Fluid Culture - Preliminary 08/24/21 21:45 Gram Stain - Preliminary Sputum Sputum Culture - Preliminary 08/24/21 00:40 Blood Culture - Preliminary Blood No Growth after 48 hours 08/24/21 00:55 Blood Culture - Preliminary Blood No Growth after 48 hours 08/25/21 12:00 Fungal Culture - Preliminary Aspirate 08/25/21 12:00 Acid Fast Bacilli Culture - Preliminary Aspirate - Imaging and Cardiology Chest x-ray: report reviewed, image reviewed Assessment and Plan Assessment: 1. Left lower lobe lung abscess, status post placement of left pleural pigtail catheter by interventional radiology 2. Leukocytosis, secondary to left lower lobe lung abscess 3. History of asthma 4. History of seizure disorder, states his last seizure was in May 2021 5. History of polysubstance abuse, currently in rehab since April 2021 6. Chronic ongoing tobacco abuse Plan: 1. Continue left chest pigtail catheter to low continuous wall suction -20 cm H2O. 2. We will instill alteplase/dornase through the pigtail catheter today. The alteplase/dornase will instill for 1 hour, during the wall time the patient will return every 15 minutes supine, left side, right side, and prone. After one hour while time the left chest pigtail catheter will be placed back to low continuous wall suction -20 cm H2O. 3. Continue to monitor daily chest x-rays. 4. Pain control per current when necessary orders. 5. Continue to follow sputum cultures and cytology results. Currently pending. 6. Encourage use of his incentive spirometry 10 times every hour while awake. 7. Antibiotic management per infectious disease recommendations. 8. Increase activity as tolerated. Out of bed for all meals. May disconnect chest tube from suction when ambulating, return back to low continuous suction after ambulation. 9. Continue to counselor education professor and reinforce with the patient the importance of smoking cessation and cessation of polysubstance abuse. 10. More recommendations to follow based on patient's clinical course. Time with Patient: Greater than 30
--- NOTE | 2021-08-26 13:29 | P.PN ---
Subjective Progress Note Date: 08/26/21 76-year-old male patient with a lung abscess and the patient is supposed to undergo an pigtail catheter insertion and drainage of a left lung abscess by interventional radiology. The patient is clinically doing well. No new complaints. His white cell count today is at her 18.1 and the patient's pro porter citonin level was at 0.27. He is hemodynamically stable. He remains on IV antibiotics and he was seen by infectious disease and he was kept on IV Unasyn 2021, the patient has no complaints. The pigtail catheter was inserted yesterday and the patient had purulent material aspirated from the right lung. I coordinated the care with the cardiothoracic team. I was in favor of injecting it with alteplase and after the instillation, total of 170 mL of purulent material came out of the chest tube. Following the instillation, the patient had some increased cough and congestion and some reactions during which he also became febrile with a temperature of 101. Subsequently all of the symptoms improved. Another dose of alteplase was given today without any reactions. He is resting comfortably in bed. Repeat chest x-ray shows interval resolution of the lung abscess seen earlier. Cultures still pending for now. The patient remains on the same antibiotics for now. Electrolytes are normal and the pro-calcitonin level is at 0.27. Objective - Vital Signs Vital signs: Vital Signs Temp 97.1 F L 08/26/21 08:00 Pulse 72 08/26/21 08:00 Resp 16 08/26/21 08:00 BP 103/63 08/26/21 08:00 Pulse Ox 97 08/26/21 08:00 FiO2 Intake & Output 08/25/21 08/26/21 08/26/21 18:59 06:59 18:59 Intake Total 300 1000 Balance 300 1000 Intake: Oral 300 1000 Other: # Voids 3 - Exam CONSTITUTIONAL: Lying in bed on the fourth floor medical surgical unit, appears comfortable, cooperative, no apparent acute distress. HEENT: Neck is supple, no JVD, no lymphadenopathy. RESPIRATORY: Lungs sounds diminished to his left lower lobe, essentially clear to his right lobes. Respirations are symmetrical and nonlabored. Currently on room air with oxygen saturations 97%. Able to achieve 150-2000 mL on his incentive spirometry. Strong productive cough with green tinged foul-smelling sputum. Left chest pigtail catheter remains in place to low continuous wall suction -20 cm H2O. No air leak is present. Draining 170 mL of purulent colored drainage in the last 24 hours. CARDIOVASCULAR: Regular rhythm and rate. S1 and S2 present, negative for S3, gallop or murmur. Palpable peripheral pulses bilaterally. No calf pain or tenderness noted. GASTROINTESTINAL: Abdomen soft, nontender, nondistended. Active bowel sounds present 4 quadrants. Tolerating diet. No guarding or rigidity. GENITOURINARY: Continues to void. INTEGUMENTARY: Skin is warm and dry with no evidence of clubbing or cyanosis. Left chest pigtail catheter dressing is clean, dry and intact. NEUROLOGIC: Cranial nerves II through XII intact. No focal deficits. MUSKULOSKELETAL: Able to move all extremities, strength equal bilaterally. PSYCHIATRIC: Alert and oriented to person place and time, appropriate affect, intact judgment and insight. - Labs CBC & Chem 7: 08/25/21 06:01 08/25/21 06:01 Labs: Microbiology - Last 24 Hours (Table) 08/25/21 12:00 Acid Fast Bacilli Culture - Preliminary Aspirate 08/25/21 12:00 Gram Stain - Preliminary Pleural Fluid Body Fluid Culture - Preliminary 08/24/21 21:45 Gram Stain - Preliminary Sputum Sputum Culture - Preliminary 08/24/21 00:40 Blood Culture - Preliminary Blood No Growth after 48 hours 08/24/21 00:55 Blood Culture - Preliminary Blood No Growth after 48 hours 08/25/21 12:00 Fungal Culture - Preliminary Aspirate Assessment and Plan Plan: Lung abscess occupying the left lower lobe. This is a large complex structure measuring around 10 cm in size and it includes fluid, air and agrees. the patient underwent a percutaneous pigtail catheter insertion with purulent material being aspirated from the left lung. The chest x-ray showing improvement in the abscess in the left lung. the patient had to alteplase treatments with drainage in the order of 170 mL of purulent material from the left lung. He is afebrile. He is on IV Unasyn. History of seizure disorder History of polysubstance abuse Leukocytosis secondary to lung abscess History of bronchial asthma Plan Continue monitoring the chest x-ray and output from the pigtail catheter Continue IV Unasyn Repeat chest x-ray in the morning May need a follow-up CAT scan of the chest within the next 24-48 hours
[2021-08-26 14:18] LABS: HCT 30.1 % (39.0-53.0); HGB 9.1 gm/dL (13.0-17.5); Hypochromasia Moderate; MCHC 30.1 g/dL (31.0-37.0); MCV 86.4 fL (80.0-100.0); Mean Platelet Volume 7.7; Platelet Count 283 k/uL (150-450); RBC 3.48 m/uL (4.30-5.90); RDW 12.9 % (11.5-15.5)
[2021-08-26 14:43] LABS: African American GFR (CKD) >90 (>60 ml/min/1.73 sqM); Anion Gap 8 mmol/L; Blood Urea Nitrogen 6 mg/dL (9-20); Calcium 7.8 mg/dL (8.4-10.2); Carbon Dioxide 31 mmol/L (22-30); Chloride 103 mmol/L (98-107); Glucose 120 mg/dL (74-99); Non-African American GFR(CKD) >90 (>60 ml/min/1.73 sqM); Potassium 4.2 mmol/L (3.5-5.1); Sodium 142 mmol/L (137-145)
--- NOTE | 2021-08-26 16:10 | P.PN ---
Subjective Progress Note Date: 08/26/21 (delayed charting seen at 0945) Patient is a 26-year-old male with prior history of polysubstance abuse sober for 4 months, asthma, and epilepsy who presented to the ER with complaints of cough and foul-smelling sputum. In the ER he underwent an extensive evaluation. Initial vital signs were within normal limits. However he then spiked a fever of 101. Laboratory analysis demonstrated a white blood cell count of 16.5, hemoglobin 9.8, d-dimer 1.5, potassium 3.4. COVID-19 testing was negative. Chest x-ray showed a large area of airspace consolidation in the left lower lobe. CT of the chest showed a large complex fluid collection in the left lower hemithorax likely related to large lung abscess. Patient was started on IV fluids and Unasyn. He was admitted for further monitoring. Pulmonary was consulted. He was seen by infectious disease who recommended continuing Unasyn. He underwent IR guided chest tube placement for pulmonary abscess on 08/25. He was seen by cardiothoracic surgery. They instilled TPA into his chest tube. Patient seen and examined at bedside. He is doing okay pain is controlled, less coughing today. Eating and drinking well. General: Ill-appearing, no distress, appears at stated age Derm: warm, dry Head: atraumatic, normocephalic, symmetric Eyes: EOMI, no lid lag, anicteric sclera Mouth: no lip lesion, mucus membranes dry Cardiovascular: S1S2 reg, no murmur, positive posterior tibial pulse bilateral, Lungs: Course bs bilateral, no rhonchi, no rales , no accessory muscle use, chest tube with velarde-green, malodorus drainage Abdominal: soft, nontender to palpation, no guarding, no appreciable organomegaly Ext: no gross muscle atrophy, no edema, no contractures Neuro: CN II-XI grossly intact, no focal neuro deficits Psych: Alert, oriented, appropriate affect Assessment/plan: Left lung abscess with sepsis status post pigtail catheter insertion 08/25 and TPA X 2 -Continue with Unasyn -Appreciate pulmonary and infectious disease recommendations -CT surgery recs appreciated - await sputum/abscess culture results -IV fluids -Pain control - Patient report negative HIV and Hep C testing 2 weeks ago. Anemia - check iron studies - stable - follow CBC History of opiate dependency -In remission on Suboxone Seizure disorder -Depakote Asthma without exacerbation -Bronchodilators when necessary and scheduled DVT prophylaxis: Heparin Discussed with: Patient, nursing, Nico Schwartz Anticipated discharge: Pending clinical course Anticipated discharge place: Home A total of 35 minutes was spent on the care of this complex patient more than 50% of the time was spent in counseling and care coordination. Active Medications Generic Name Dose Route Start Last Admin Trade Name Freq PRN Reason Stop Dose Admin Acetaminophen 650 mg 08/24/21 04:13 08/26/21 08:42 Acetaminophen Tab 325 Mg Tab PO 650 mg Q6H PRN Administration Fever Albuterol Sulfate 2.5 mg 08/24/21 09:40 Albuterol Nebulized 2.5 Mg/3 Ml INHALATION RT-Q6H PRN Shortness Of Breath Budesonide/Formoterol Fumarate 2 puff 08/24/21 20:00 08/26/21 08:30 Symbicort 160-4.5 Mcg Inhaler INHALATION 2 puff RT-BID NAS Administration Divalproex Sodium 125 mg 08/24/21 09:45 08/26/21 08:43 Divalproex Sprinkle 125 Mg Cap.Sprink PO 125 mg TID NAS Administration Divalproex Sodium 500 mg 08/24/21 16:00 08/26/21 08:43 Divalproex 500 Mg Tablet.Dr PO 500 mg TID NAS Administration Fluoxetine HCl 20 mg 08/24/21 09:45 08/26/21 08:44 Fluoxetine Hcl 20 Mg Cap PO 20 mg DAILY NAS Administration Heparin Sodium (Porcine) 5,000 unit 08/24/21 08:00 08/26/21 08:42 Heparin Sodium,Porcine/Pf 5,000 Unit/0.5 Ml Syringe SQ Not Given Q8HR NAS Hydroxyzine HCl 25 mg 08/24/21 16:00 08/26/21 08:43 Hydroxyzine Hcl 25 Mg Tab PO 25 mg TID NAS Administration Ampicillin Sodium/Sulbactam 100 mls @ 200 mls/hr 08/25/21 03:00 08/26/21 08:41 Sodium 3 gm/ Sodium Chloride IVPB 200 mls/hr Q6H NAS Administration Protocol Ketorolac Tromethamine 15 mg 08/25/21 18:00 08/26/21 13:28 Ketorolac 15 Mg/Ml 1 Ml Vial IVP 08/28/21 14:35 15 mg Q6HR NAS Administration Loratadine 10 mg 08/24/21 09:40 08/25/21 20:57 Loratadine 10 Mg Tab PO 10 mg DAILY PRN Administration Allergy Symptoms Miscellaneous Information 1 each 08/24/21 03:21 Pneumonia Protocol Utilized 1 Each Misc PO ONCE PRN Per Protocol Buprenorphine/ 1 film 08/24/21 21:00 08/26/21 08:44 Naloxone 8mg/2mg SUBLINGUAL 1 film BID NAS Administration Olanzapine 10 mg 08/24/21 21:00 08/25/21 20:56 Olanzapine 10 Mg Tab PO 10 mg HS NAS Administration Objective - Vital Signs Vital signs: Vital Signs Temp 97.7 F 08/26/21 14:00 Pulse 82 08/26/21 14:00 Resp 16 08/26/21 14:00 BP 102/62 08/26/21 14:00 Pulse Ox 94 L 08/26/21 14:00 FiO2 Intake & Output 08/25/21 08/26/21 08/26/21 18:59 06:59 18:59 Intake Total 300 1000 Balance 300 1000 Intake: Oral 300 1000 Other: # Voids 3 - Labs CBC & Chem 7: 08/26/21 13:52 08/26/21 13:52 Labs: Abnormal Lab Results - Last 24 Hours (Table) 08/26/21 08/26/21 Range/Units 13:52 13:52 WBC 15.0 H (3.8-10.6) k/uL RBC 3.48 L (4.30-5.90) m/uL Hgb 9.1 L (13.0-17.5) gm/dL Hct 30.1 L (39.0-53.0) % MCHC 30.1 L (31.0-37.0) g/dL Carbon Dioxide 31 H (22-30) mmol/L BUN 6 L (9-20) mg/dL Glucose 120 H (74-99) mg/dL Calcium 7.8 L (8.4-10.2) mg/dL Microbiology - Last 24 Hours (Table) 08/25/21 12:00 Acid Fast Bacilli Culture - Preliminary Aspirate 08/25/21 12:00 Gram Stain - Preliminary Pleural Fluid Body Fluid Culture - Preliminary 08/24/21 21:45 Gram Stain - Preliminary Sputum Sputum Culture - Preliminary 08/24/21 00:40 Blood Culture - Preliminary Blood No Growth after 48 hours 08/24/21 00:55 Blood Culture - Preliminary Blood No Growth after 48 hours 08/25/21 12:00 Fungal Culture - Preliminary Aspirate
--- NOTE | 2021-08-26 16:27 | CT ---
EXAMINATION TYPE: CT chest wo con DATE OF EXAM: 08/26/2021 COMPARISON: 08/24/2021 HISTORY: 26-year-old male reassessed lung abscess TECHNIQUE: Contiguous axial scanning of the chest without IV contrast. Coronal and sagittal reconstru ctions performed. CT DLP: 353.6 mGycm Automated exposure control for dose reduction was used. FINDINGS: Heart normal size trace pericardial effusion. Aorta normal caliber with variant direct takeoff of the left vertebral artery directly from the aorti c arch. Angular soft tissue density anterior mediastinum compatible with residual thymic tissue. Similar anterior mediastinal lymph nodes measuring up to 1.1 cm. Lower right paratracheal nodes measu ring 8 mm. Subcarinal nodes measuring up to 1.3 cm. Left hilar nodes not as well evaluated due to lac k of IV contrast. Trace bilateral gynecomastia. There may be mild generalized anasarca change. Interval placement of a pigtail drainage catheter at the left base within the patient's abnormal flui d collection. The fluid collection itself has progressed in size measuring up to 6.4 cm now versus at least 10.1 cm, previously. Extensive airspace disease remains in the left lower lobe. New peribronchial foci of groundglass opacity, greatest in the mid and lower lungs. Right effusion. The spleen appears enlarged but is only partially measured. On coronal, it appears over 14 cm. Total: Small endplate Schmorl's nodes lower thoracic spine. IMPRESSION: 1. INTERVAL PLACEMENT OF A PIGTAIL LEFT BASILAR DRAINAGE CATHETER. THE PREVIOUS BASILAR LEFT LOWER LO BE LUNG ABSCESS IS DECREASED IN SIZE CURRENTLY 6.4 CM VERSUS 10.1 CM, PREVIOUSLY. EXTENSIVE PNEUMONIA /AIRSPACE DISEASE REMAINS IN THE LEFT LOWER LOBE. 2. INTERVAL DEVELOPMENT OF NEW MULTIFOCAL PERIBRONCHOVASCULAR GROUNDGLASS INFILTRATES. CORRELATE FOR DISSEMINATED PNEUMONIA OR ASPIRATION. NEW SMALL RIGHT PLEURAL EFFUSION WELL. 3. SPLENOMEGALY PARTIALLY VISUALIZED. CLINICALLY CORRELATE.
--- NOTE | 2021-08-26 20:19 | P.PN ---
Subjective Progress Note Date: 08/25/21 Principal diagnosis: Left lung abscess Patient is a 26-year-old male presenting to the hospital with not feeling with left-sided chest pain cough with foul-smelling purulent sputum and this patient did have evidence of left-sided lung abscess status post chest tube placement by interventional radiology on 08/25/2021. On today's evaluation that is 08/25/2021, the patient denies having any fever or chills patient is breathing comfortably, left-sided chest pain slightly decreased intensity no nausea no vomiting no abdominal pain or diarrhea Objective - Vital Signs Vital signs: Vital Signs Temp 99.2 F 08/25/21 07:31 Pulse 88 08/25/21 12:10 Resp 16 08/25/21 12:10 BP 100/63 08/25/21 12:10 Pulse Ox 96 08/25/21 12:10 FiO2 Intake & Output 08/24/21 08/25/21 08/25/21 18:59 06:59 18:59 Intake Total 800 Output Total 2 Balance 798 Intake: Oral 800 Output: Urine 2 Other: # Voids 2 - Exam GENERAL DESCRIPTION: Young male lying in bed in no distress RESPIRATORY SYSTEM: Unlabored breathing , decreased breath sounds at bases HEART: S1 S2 regular rate and rhythm , ABDOMEN: Soft , no tenderness EXTREMITIES: No edema feet - Labs CBC & Chem 7: 08/26/21 13:52 08/26/21 13:52 Labs: Abnormal Lab Results - Last 24 Hours (Table) 08/24/21 08/25/21 08/25/21 Range/Units 06:04 06:01 06:01 WBC 18.1 H (3.8-10.6) k/uL RBC 3.70 L (4.30-5.90) m/uL Hgb 9.8 L D (13.0-17.5) gm/dL Hct 31.9 L (39.0-53.0) % MCHC 30.7 L (31.0-37.0) g/dL BUN 3 L (9-20) mg/dL Glucose 104 H (74-99) mg/dL Calcium 8.1 L (8.4-10.2) mg/dL Procalcitonin 0.27 H (0.02-0.09) ng/mL Microbiology - Last 24 Hours (Table) 08/24/21 21:45 Sputum Culture - Preliminary Sputum 08/24/21 00:55 Blood Culture - Preliminary Blood No Growth after 24 hours 08/24/21 00:40 Blood Culture - Preliminary Blood No Growth after 24 hours Assessment and Plan (1) Lung abscess Current Visit: Yes Status: Acute Code(s): J85.2 - ABSCESS OF LUNG WITHOUT PNEUMONIA SNOMED Code(s): 26823926 Plan: 1patient presented to hospital with symptoms with on for more than a month with left-sided chest pain cough purulent sputum with evidence of lung abscess on CT angiogram question of possible aspiration etiology and will need to cover for the polymicrobial wayne associated this infection. 2patient is status post IR drainage of this abscess and placement of the chest tube, 08/25/2021 3- pleural fluid as well as sputum cultures are currently pending 4patient to continue with Unasyn 3 g every 6 hours. Time with Patient: Less than 30
--- NOTE | 2021-08-26 20:21 | P.PN ---
Subjective Progress Note Date: 08/26/21 Principal diagnosis: Left lung abscess Patient is a 26-year-old male presenting to the hospital with not feeling with left-sided chest pain cough with foul-smelling purulent sputum and this patient did have evidence of left-sided lung abscess status post chest tube placement by interventional radiology on 08/25/2021. On today's evaluation that is 08/26/2021, the patient is afebrile patient is breathing comfortably, the patient left-sided chest pain slightly decreased intensity, the patient denies nausea no vomiting no abdominal pain or diarrhea Objective - Vital Signs Vital signs: Vital Signs Temp 97.1 F L 08/26/21 08:00 Pulse 72 08/26/21 08:00 Resp 16 08/26/21 08:00 BP 103/63 08/26/21 08:00 Pulse Ox 97 08/26/21 08:00 FiO2 Intake & Output 08/25/21 08/26/21 08/26/21 18:59 06:59 18:59 Intake Total 300 1000 Balance 300 1000 Intake: Oral 300 1000 Other: # Voids 3 - Exam GENERAL DESCRIPTION: Young male lying in bed in no distress RESPIRATORY SYSTEM: Unlabored breathing , decreased breath sounds at bases, Left-sided Chest tube HEART: S1 S2 regular rate and rhythm , ABDOMEN: Soft , no tenderness EXTREMITIES: No edema feet - Labs CBC & Chem 7: 08/26/21 13:52 08/26/21 13:52 Labs: Microbiology - Last 24 Hours (Table) 08/25/21 12:00 Acid Fast Bacilli Culture - Preliminary Aspirate 08/25/21 12:00 Gram Stain - Preliminary Pleural Fluid Body Fluid Culture - Preliminary 08/24/21 21:45 Gram Stain - Preliminary Sputum Sputum Culture - Preliminary 08/24/21 00:40 Blood Culture - Preliminary Blood No Growth after 48 hours 08/24/21 00:55 Blood Culture - Preliminary Blood No Growth after 48 hours 08/25/21 12:00 Fungal Culture - Preliminary Aspirate Assessment and Plan (1) Lung abscess Current Visit: Yes Status: Acute Code(s): J85.2 - ABSCESS OF LUNG WITHOUT PNEUMONIA SNOMED Code(s): 41074038 Plan: 1patient presented to hospital with symptoms with on for more than a month with left-sided chest pain cough purulent sputum with evidence of lung abscess on CT angiogram question of possible aspiration etiology and will need to cover for the polymicrobial wayne associated this infection. 2patient is status post IR drainage of this abscess and placement of the chest tube, 08/25/2021 3- pleural fluid as well as sputum cultures remains to be pending, however her white count is trending down 4patient to continue with Unasyn 3 g every 6 hours while waiting for the consultation finalize.
[2021-08-26] MEDS: OLANZapine 10 MG TAB PO SCH (21:44)
[2021-08-27] MEDS: KETOROLAC 15 MG/ML 1 ML VIAL IVP SCH ×4 (00:05→17:23)
[2021-08-27] MEDS: HEPARIN SODIUM,PORCINE/PF 5,000 UNIT/0.5 ML SYRINGE SQ SCH ×3 (01:46→17:22)
[2021-08-27] MEDS: AMPICILLIN-SULBACTAM 3 GM in SODIUM CHLORIDE 0.9% 100 ML IVPB SCH ×4 (03:23→22:50)
--- NOTE | 2021-08-27 06:58 | XR ---
EXAMINATION TYPE: XR chest 1V portable DATE OF EXAM: 08/27/2021 COMPARISON: 08/26/2021 HISTORY: Left lung abscess follow-up TECHNIQUE: Single frontal view of the chest is obtained. FINDINGS: There is a pigtail catheter in the left lung base region. There is a persistent retrocardi ac opacity which is unchanged. There is a small focal partially consolidative infiltrate in the right lung base. There is no pneumothorax. Heart size normal vasculature is not congested. The osseous structures are intact. IMPRESSION: . Bibasilar infiltrates. The right infiltrate worsening in the interval.
[2021-08-27] MEDS: SYMBICORT 160-4.5 MCG INHALER INHALATION SCH ×2 (07:51→20:29)
[2021-08-27 08:50] LABS: HCT 28.9 % (39.6-50.0); HGB 8.7 g/dL (13.0-17.0); MCH 25.7 pg (27.0-32.0); MCHC 30.1 g/dL (32.0-37.0); MCV 85.5 fL (80.0-97.0); Mean Platelet Volume 9.8 fL (9.5-12.2); NRBC Per 100 WBC 0 /100 WBCS (0.0-0.0); Platelet Count 323 X 10*3/uL (140-440); RBC 3.38 X 10*6/uL (4.40-5.60); RDW 13.6 % (11.5-14.5); WBC 16.32 X 10*3/uL (4.50-10.00)
[2021-08-27] MEDS: DIVALPROEX 500 MG TABLET.DR PO SCH ×3 (08:57→22:53)
[2021-08-27] MEDS: hydrOXYzine HCL 25 MG TAB PO SCH ×3 (08:57→22:49)
[2021-08-27] MEDS: FLUoxetine HCL 20 MG CAP PO SCH (08:57)
[2021-08-27] MEDS: DIVALPROEX SPRINKLE 125 MG CAP.SPRINK PO SCH ×3 (08:58→22:49)
[2021-08-27 09:58] LABS: % Iron Saturation 10.71 (15.00-50.00); Anion Gap 12.3 mmol/L (10.00-18.00); BUN/Creat Ratio 9.43 Ratio (12.00-20.00); Blood Urea Nitrogen 6.6 mg/dL (9.0-27.0); Carbon Dioxide 26.7 mmol/L (20.0-27.5); Magnesium 2.3 mg/dL (1.5-2.4); Non-African American GFR(CKD) 130.2 (60.0-200.0); Potassium 4.4 mmol/L (3.5-5.5)
--- NOTE | 2021-08-27 10:15 | P.PN ---
Subjective Progress Note Date: 08/27/21 Principal diagnosis: Left lung abscess with persistent cough and foul-smelling tenacious green tinged sputum. Previous medical history of chronic tobacco dependence, epilepsy with last seizure in May 2021, asthma, polysubstance abuse, has been in rehab and clean since April 2021 The patient was seen and examined this morning on the medical surgical unit sitting up in bed in no acute distress. Denies any pain or shortness of breath. States he feels better than when he came in. Currently on room air with oxygen saturation the mid 90s. Able to pull 2000 mL on his incentive spirometry. Remains on IV Unasyn. Remains afebrile for [address] of the chest was comp leted yesterday with documented decrease in his abscess, however there is multifocal peribronchovascular groundglass infiltrates and a new right-sided pleural effusion. Pleural fluid Gram stain is preliminary but demonstrates moderate PMNs, many gram-positive cocci, few gram-positive bacilli. Left-sided pigtail remains in place, alteplase/dornase instilled 2, only 150 mL thick brown fluid removed in the last 24 hours. Objective - Vital Signs Vital signs: Vital Signs Temp 97.9 F 08/27/21 07:15 Pulse 74 08/27/21 07:15 Resp 17 08/27/21 07:15 BP 97/60 08/27/21 07:15 Pulse Ox 95 08/27/21 07:15 FiO2 Intake & Output 08/26/21 08/27/21 08/27/21 18:59 06:59 18:59 Other: # Voids 3 - Exam CONSTITUTIONAL: Appears comfortable, cooperative, no acute distress RESPIRATORY: Lungs sounds diminished bilaterally, left greater than right. Res pirations even, nonlabored. Currently on room air with oxygen saturation 95%. Able to achieve 2000 mL on incentive spirometry. Strong cough. CARDIOVASCULAR: S1, S2 present. Regular rate and rhythm. Palpable peripheral pulses bilaterally. No edema present. No calf pain or tenderness noted. GASTROINTESTINAL: Abdomen soft, nontender, nondistended. Active bowel sounds present 4 quadrants. Tolerating diet. GENITOURINARY: Continues to void INTEGUMENTARY: Skin is warm and dry with evidence of good perfusion. NEUROLOGIC: Cranial nerves II through XII intact MUSKULOSKELETAL: Able to move all extremities, strength equal bilaterally, gait normal PSYCHIATRIC: Alert and oriented to person place and time, appropriate affect, intact judgment and insight INVASIVE LINES AND TUBES: Left pigtail catheter present and connected to wall suction, no air leaks present, 150 mL thick brown fluid removal in the last 24 hours - Allied health notes Allied health notes reviewed: nursing - Labs CBC & Chem 7: 08/27/21 06:03 08/27/21 06:03 Labs: Abnormal Lab Results - Last 24 Hours (Table) 08/26/21 08/26/21 08/27/21 Range/Units 13:52 13:52 06:03 WBC 15.0 H 16.32 H (3.8-10.6) k/uL RBC 3.48 L 3.38 L (4.30-5.90) m/uL Hgb 9.1 L 8.7 L (13.0-17.5) gm/dL Hct 30.1 L 28.9 L (39.0-53.0) % MCH 25.7 L (27.0-32.0) pg MCHC 30.1 L 30.1 L (31.0-37.0) g/dL Carbon Dioxide 31 H (22-30) mmol/L BUN 6 L (9-20) mg/dL Glucose 120 H (74-99) mg/dL Calcium 7.8 L (8.4-10.2) mg/dL Microbiology - Last 24 Hours (Table) 08/24/21 00:55 Blood Culture - Preliminary Blood No Growth after 72 hours 08/24/21 00:40 Blood Culture - Preliminary Blood No Growth after 72 hours 08/25/21 12:00 Acid Fast Bacilli Smear - Final Aspirate Acid Fast Bacilli Culture - Preliminary 08/25/21 12:00 Gram Stain - Preliminary Pleural Fluid Body Fluid Culture - Preliminary 08/24/21 21:45 Gram Stain - Preliminary Sputum Sputum Culture - Preliminary - Imaging and Cardiology Chest x-ray: report reviewed, image reviewed Assessment and Plan Assessment: 1. Left lung abscess, status post placement of left pigtail catheter by interventional radiology with alteplase/dornase instilled 2 2. Persistent cough and foul-smelling tenacious green tinged sputum 3. Leukocytosis 4. Chronic tobacco dependence 5. History of epilepsy with last seizure in May 2021 6. History of asthma 7. History of polysubstance abuse, has been in rehab and clean since April 2021 Plan: 1. Continue left chest pigtail catheter to low continuous wall suction -20 cm H2O. 2. Will hold off alteplase/dornase instillation today 3. Continue to monitor daily chest x-rays. 4. Pain control per current medication regimen 5. Continue to follow sputum cultures and cytology results 6. Encourage use of his incentive spirometry 10 times every hour while awake. 7. Antibiotic management per infectious disease recommendations. 8. Increase activity as tolerated. Out of bed for all meals. May disconnect chest tube from suction when ambulating, return back to low continuous suction after ambulation. 9. Continue to trauma counsellor and reinforce with the patient the importance of smoking cessation and cessation of polysubstance abuse. 10. More recommendations to follow
--- NOTE | 2021-08-27 12:21 | P.PN ---
Subjective Progress Note Date: 08/27/21 76-year-old male patient with a lung abscess and the patient is supposed to undergo an pigtail catheter insertion and drainage of a left lung abscess by interventional radiology. The patient is clinically doing well. No new complaints. His white cell count today is at her 18.1 and the patient's pro porter citonin level was at 0.27. He is hemodynamically stable. He remains on IV antibiotics and he was seen by infectious disease and he was kept on IV Unasyn 10 2021, the patient has no complaints. The pigtail catheter was inserted yesterday and the patient had purulent material aspirated from the right lung. I coordinated the care with the cardiothoracic team. I was in favor of injecting it with alteplase and after the instillation, total of 170 mL of purulent material came out of the chest tube. Following the instillation, the patient had some increased cough and congestion and some reactions during which he also became febrile with a temperature of 101. Subsequently all of the symptoms improved. Another dose of alteplase was given today without any reactions. He is resting comfortably in bed. Repeat chest x-ray shows interval resolution of the lung abscess seen earlier. Cultures still pending for now. The patient remains on the same antibiotics for now. Electrolytes are normal and the pro-calcitonin level is at 0.27. 08/27/2021, patient is being seen for a follow-up. The patient is resting comfortably in bed. Pigtail catheter in place. The patient will receive 2 al teplase treatment and a total of 200 mL of fluid brownish improvement was aspirated from the left lung over the past 24 hours. Note that a follow-up CAT scan of the chest was also done and showed some groundglass changes on the right and some areas of groundglass changes in the left. Nevertheless, the right lung abscess had decreased in size and there is persistent consolidation of the left lower lobe. The patient remains on IV Unasyn. Cultures are still negative for now. Note that the material to drain from the lung was foul-smelling and tenacious and purulent. He is on room air oxygen. The white cell count is 16.3 with hemoglobin of 8.7. Electrodes are all within normal limits. Serum iron was low at 17 and the Pronestyl level was at 0.27. No altered mentation. Objective - Vital Signs Vital signs: Vital Signs Temp 97.9 F 08/27/21 07:15 Pulse 74 08/27/21 07:15 Resp 17 08/27/21 07:15 BP 97/60 08/27/21 07:15 Pulse Ox 95 08/27/21 07:15 FiO2 Intake & Output 08/26/21 08/27/21 08/27/21 18:59 06:59 18:59 Other: # Voids 3 - Exam CONSTITUTIONAL: Lying in bed on the fourth floor medical surgical unit, appears comfortable, cooperative, no apparent acute distress. HEENT: Neck is supple, no JVD, no lymphadenopathy. RESPIRATORY: Lungs sounds diminished to his left lower lobe, essentially clear to his right lobes. Respirations are symmetrical and nonlabored. Currently on room air with oxygen saturations 97%. Able to achieve 150-2000 mL on his incentive spirometry. Strong productive cough with green tinged foul-smelling sputum. Left chest pigtail catheter remains in place to low continuous wall suction -20 cm H2O. No air leak is present. Draining 170 mL of purulent colored drainage in the last 24 hours. CARDIOVASCULAR: Regular rhythm and rate. S1 and S2 present, negative for S3, gallop or murmur. Palpable peripheral pulses bilaterally. No calf pain or tenderness noted. GASTROINTESTINAL: Abdomen soft, nontender, nondistended. Active bowel sounds present 4 quadrants. Tolerating diet. No guarding or rigidity. GENITOURINARY: Continues to void. INTEGUMENTARY: Skin is warm and dry with no evidence of clubbing or cyanosis. Left chest pigtail catheter dressing is clean, dry and intact. NEUROLOGIC: Cranial nerves II through XII intact. No focal deficits. MUSKULOSKELETAL: Able to move all extremities, strength equal bilaterally. PSYCHIATRIC: Alert and oriented to person place and time, appropriate affect, intact judgment and insight. - Labs CBC & Chem 7: 08/27/21 06:03 08/27/21 06:03 Labs: Abnormal Lab Results - Last 24 Hours (Table) 08/26/21 08/26/21 08/27/21 Range/Units 13:52 13:52 06:03 WBC 15.0 H 16.32 H (3.8-10.6) k/uL RBC 3.48 L 3.38 L (4.30-5.90) m/uL Hgb 9.1 L 8.7 L (13.0-17.5) gm/dL Hct 30.1 L 28.9 L (39.0-53.0) % MCH 25.7 L (27.0-32.0) pg MCHC 30.1 L 30.1 L (31.0-37.0) g/dL Carbon Dioxide 31 H (22-30) mmol/L BUN 6 L (9-20) mg/dL BUN/Creatinine Ratio (12.00-20.00) Ratio Glucose 120 H (74-99) mg/dL Calcium 7.8 L (8.4-10.2) mg/dL Iron (65-175) ug/dL TIBC (228-460) ug/dL % Saturation (15.00-50.00) Transferrin (204.0-354.0) mg/dL Ferritin (22.0-322.0) ng/mL 08/27/21 Range/Units 06:03 WBC (3.8-10.6) k/uL RBC (4.30-5.90) m/uL Hgb (13.0-17.5) gm/dL Hct (39.0-53.0) % MCH (27.0-32.0) pg MCHC (31.0-37.0) g/dL Carbon Dioxide (22-30) mmol/L BUN 6.6 L (9-20) mg/dL BUN/Creatinine Ratio 9.43 L (12.00-20.00) Ratio Glucose 116 H (74-99) mg/dL Calcium 8.0 L (8.4-10.2) mg/dL Iron 17 L (65-175) ug/dL TIBC 154 L (228-460) ug/dL % Saturation 10.71 L (15.00-50.00) Transferrin 110.0 L (204.0-354.0) mg/dL Ferritin 494.0 H (22.0-322.0) ng/mL Microbiology - Last 24 Hours (Table) 08/24/21 21:45 Gram Stain - Final Sputum Sputum Culture - Final 08/24/21 00:55 Blood Culture - Preliminary Blood No Growth after 72 hours 08/24/21 00:40 Blood Culture - Preliminary Blood No Growth after 72 hours 08/25/21 12:00 Acid Fast Bacilli Smear - Final Aspirate Acid Fast Bacilli Culture - Preliminary 08/25/21 12:00 Gram Stain - Preliminary Pleural Fluid Body Fluid Culture - Preliminary Assessment and Plan Plan: Lung abscess occupying the left lower lobe. This is a large complex structure measuring around 10 cm in size and it includes fluid, air and agrees. the patient underwent a percutaneous pigtail catheter insertion with purulent material being aspirated from the left lung. The chest x-ray showing improvement in the abscess in the left lung. the patient had to alteplase treatments with drainage in the order of 170 mL of purulent material from the left lung. He is afebrile. He is on IV Unasyn. A repeat CAT scan of the chest was done that showed diminution of the left lung abscess. There is persistent consolidation of left lower lobe. There are areas of ground glass changes developing bilaterally. Could be in acute lung injury or reaction to alteplase treatment. Since the alteplase treatment 2, the patient has a more than 200 mL of purulent putrid material from the left lung. Remains on IV Unasyn. Hemodynamically stable. History of seizure disorder History of polysubstance abuse Leukocytosis secondary to lung abscess History of bronchial asthma Plan Continue monitoring the chest x-ray and output from the pigtail catheter Awaiting final cultures Continue IV Unasyn Repeat chest x-ray in the morning We will skip on alteplase administration for today Monitor the output May need a follow-up
--- NOTE | 2021-08-27 12:48 | P.PN ---
Subjective Progress Note Date: 08/27/21 Hospital course: Patient is a 26-year-old male with prior history of polysubstance abuse sober for 4 months, asthma, and epilepsy who presented to the ER with complaints of cough and foul-smelling sputum. In the ER he underwent an extensive evaluation. Initial vital signs were within normal limits. However he then spiked a fever of 101. Laboratory analysis demonstrated a white blood cell count of 16.5, hemoglobin 9.8, d-dimer 1.5, potassium 3.4. COVID-19 testing was negative. Chest x-ray showed a large area of airspace consolidation in the left lower lobe. CT of the chest showed a large complex fluid collection in the left lower hemithorax likely related to large lung abscess. Patient was started on IV fluids and Unasyn. He was admitted for further monitoring. Pulmonary was consulted. He was seen by infectious disease who recommended continuing Unasyn. He underwent IR guided chest tube placement for pulmonary abscess on 08/25. He was seen by cardiothoracic surgery. They instilled TPA into his chest tube. Cultures negative to date. Physical examination: Patient seen and examined at bedside. He was resting comfortably. Easily awoken. Chest tube remains in place to left thoracic region of the back. Patient reports mild back pain but states he is receiving relief from Toradol. Patient reports he is breathing comfortably and has had improvement of cough. He denies having any chest pain or palpitations to deny shortness of breath at rest. General: Ill-appearing, no distress, appears at stated age Derm: warm, dry Head: atraumatic, normocephalic, symmetric Eyes: EOMI, no lid lag, anicteric sclera Mouth: no lip lesion, mucus membranes dry Cardiovascular: S1S2 reg, no murmur, positive posterior tibial pulse bilateral, Lungs: Course bs bilateral, no rhonchi, no rales , no accessory muscle use, chest tube with velarde-green, drainage Abdominal: soft, nontender to palpation, no guarding, no appreciable organomegaly Ext: no gross muscle atrophy, no edema, no contractures Neuro: CN II-XI grossly intact, no focal neuro deficits Psych: Alert, oriented, appropriate affect Assessment and plan of care: Left lung abscess with sepsis status post pigtail catheter insertion 08/25/21 and TPA X 2 -Pulmonology following, appreciate further recommendations -Infectious disease following, appreciate further recommendations -Continue with IV antibiotic: Unasyn pending further culture results and/or further recommendations from infectious disease -CT surgery following, appreciate recommendations -Cultures negative to date -IV fluids Discontinued as patient is tolerating oral intake. -Continue pain medication regimen, Toradol 15 mg IVP every 6 hours -Patient report negative HIV and Hep C testing 2 weeks ago. Iron deficiency anemia Anemia -Iron 17, TIBC 154, iron percent saturation 10.71 and ferritin 110.0. -Hemoglobin stable at 8.7 -Patient started on oral ferrous sulfate 325 mg daily -Follow CBC History of opiate dependency -In remission on Suboxone Seizure disorder -Depakote -Seizure precautions Asthma without exacerbation -Bronchodilators when necessary and scheduled CODE STATUS full code DVT prophylaxis: Heparin Discussed with: Patient and RN Anticipated discharge: Pending clinical course Anticipated discharge place: Home A total of 35 minutes was spent on the care of this complex patient more than 50% of the time was spent in counseling and care coordination. I reviewed the documentation as provided by the GEOFF above, who is the original author of this note. I agree with the documented assessment and plan, with the following changes: None Objective - Vital Signs Vital signs: Vital Signs Temp 98.6 F 08/27/21 00:33 Pulse 83 08/27/21 00:33 Resp 15 08/27/21 00:33 BP 96/57 08/27/21 00:33 Pulse Ox 95 08/27/21 00:33 FiO2 Intake & Output 08/26/21 08/27/21 08/27/21 18:59 06:59 18:59 Other: # Voids 3 - Labs CBC & Chem 7: 08/27/21 06:03 08/27/21 06:03 Labs: Abnormal Lab Results - Last 24 Hours (Table) 08/26/21 08/26/21 Range/Units 13:52 13:52 WBC 15.0 H (3.8-10.6) k/uL RBC 3.48 L (4.30-5.90) m/uL Hgb 9.1 L (13.0-17.5) gm/dL Hct 30.1 L (39.0-53.0) % MCHC 30.1 L (31.0-37.0) g/dL Carbon Dioxide 31 H (22-30) mmol/L BUN 6 L (9-20) mg/dL Glucose 120 H (74-99) mg/dL Calcium 7.8 L (8.4-10.2) mg/dL Microbiology - Last 24 Hours (Table) 08/24/21 00:55 Blood Culture - Preliminary Blood No Growth after 72 hours 08/24/21 00:40 Blood Culture - Preliminary Blood No Growth after 72 hours 08/25/21 12:00 Acid Fast Bacilli Smear - Final Aspirate Acid Fast Bacilli Culture - Preliminary 08/25/21 12:00 Gram Stain - Preliminary Pleural Fluid Body Fluid Culture - Preliminary 08/24/21 21:45 Gram Stain - Preliminary Sputum Sputum Culture - Preliminary
--- NOTE | 2021-08-27 13:46 | P.PN ---
Subjective Progress Note Date: 08/27/21 Principal diagnosis: Left lung abscess Patient is a 26-year-old male presenting to the hospital with not feeling with left-sided chest pain cough with foul-smelling purulent sputum and this patient did have evidence of left-sided lung abscess status post chest tube placement by interventional radiology on 08/25/2021. On today's evaluation that is 08/27/2021, the patient remains to be afebrile, the patient is breathing comfortably on room air, the patient left-sided chest pain slightly decreased intensity, the patient denies nausea no vomiting no abdominal pain or diarrhea Objective - Vital Signs Vital signs: Vital Signs Temp 97.9 F 08/27/21 07:15 Pulse 74 08/27/21 07:15 Resp 17 08/27/21 07:15 BP 97/60 08/27/21 07:15 Pulse Ox 95 08/27/21 07:15 FiO2 Intake & Output 08/26/21 08/27/21 08/27/21 18:59 06:59 18:59 Other: # Voids 3 - Exam GENERAL DESCRIPTION: Young male lying in bed in no distress RESPIRATORY SYSTEM: Unlabored breathing , decreased breath sounds at bases, Left-sided Chest tube HEART: S1 S2 regular rate and rhythm , ABDOMEN: Soft , no tenderness EXTREMITIES: No edema feet - Labs CBC & Chem 7: 08/27/21 06:03 08/27/21 06:03 Labs: Abnormal Lab Results - Last 24 Hours (Table) 08/26/21 08/26/21 08/27/21 Range/Units 13:52 13:52 06:03 WBC 15.0 H 16.32 H (3.8-10.6) k/uL RBC 3.48 L 3.38 L (4.30-5.90) m/uL Hgb 9.1 L 8.7 L (13.0-17.5) gm/dL Hct 30.1 L 28.9 L (39.0-53.0) % MCH 25.7 L (27.0-32.0) pg MCHC 30.1 L 30.1 L (31.0-37.0) g/dL Carbon Dioxide 31 H (22-30) mmol/L BUN 6 L (9-20) mg/dL BUN/Creatinine Ratio (12.00-20.00) Ratio Glucose 120 H (74-99) mg/dL Calcium 7.8 L (8.4-10.2) mg/dL Iron (65-175) ug/dL TIBC (228-460) ug/dL % Saturation (15.00-50.00) Transferrin (204.0-354.0) mg/dL Ferritin (22.0-322.0) ng/mL 08/27/21 Range/Units 06:03 WBC (3.8-10.6) k/uL RBC (4.30-5.90) m/uL Hgb (13.0-17.5) gm/dL Hct (39.0-53.0) % MCH (27.0-32.0) pg MCHC (31.0-37.0) g/dL Carbon Dioxide (22-30) mmol/L BUN 6.6 L (9-20) mg/dL BUN/Creatinine Ratio 9.43 L (12.00-20.00) Ratio Glucose 116 H (74-99) mg/dL Calcium 8.0 L (8.4-10.2) mg/dL Iron 17 L (65-175) ug/dL TIBC 154 L (228-460) ug/dL % Saturation 10.71 L (15.00-50.00) Transferrin 110.0 L (204.0-354.0) mg/dL Ferritin 494.0 H (22.0-322.0) ng/mL Microbiology - Last 24 Hours (Table) 08/24/21 21:45 Gram Stain - Final Sputum Sputum Culture - Final 08/24/21 00:55 Blood Culture - Preliminary Blood No Growth after 72 hours 08/24/21 00:40 Blood Culture - Preliminary Blood No Growth after 72 hours 08/25/21 12:00 Acid Fast Bacilli Smear - Final Aspirate Acid Fast Bacilli Culture - Preliminary 08/25/21 12:00 Gram Stain - Preliminary Pleural Fluid Body Fluid Culture - Preliminary Assessment and Plan (1) Lung abscess Current Visit: Yes Status: Acute Code(s): J85.2 - ABSCESS OF LUNG WITHOUT PNEUMONIA SNOMED Code(s): 28767727 Plan: 1patient presented to hospital with symptoms with on for more than a month with left-sided chest pain cough purulent sputum with evidence of lung abscess on CT angiogram question of possible aspiration etiology and will need to cover for the polymicrobial wayne associated this infection. 2patient is status post IR drainage of this abscess and placement of the chest tube, 08/25/2021 and status post alteplase instillations times x [address] surgery 3- pleural fluid as well as sputum cultures remains to be pending, and blood cultures are negative 4patient to continue with Unasyn 3 g every 6 hours while waiting for the cultures to be finalize Time with Patient: Less than 30
[2021-08-27] MEDS: FERROUS SULFATE 325 MG TAB PO SCH (17:23)
[2021-08-27] MEDS: OLANZapine 10 MG TAB PO SCH (22:49)
[2021-08-28] MEDS: KETOROLAC 15 MG/ML 1 ML VIAL IVP SCH ×3 (00:07→12:20)
[2021-08-28] MEDS: HEPARIN SODIUM,PORCINE/PF 5,000 UNIT/0.5 ML SYRINGE SQ SCH ×4 (00:07→22:58)
[2021-08-28] MEDS: AMPICILLIN-SULBACTAM 3 GM in SODIUM CHLORIDE 0.9% 100 ML IVPB SCH ×4 (03:44→21:15)
--- NOTE | 2021-08-28 06:54 | XR ---
EXAMINATION TYPE: XR chest 1V portable DATE OF EXAM: 08/28/2021 COMPARISON: 08/27/2021 HISTORY: Left lower lobe abscess status post drainage TECHNIQUE: Single frontal view of the chest is obtained. FINDINGS: Drainage catheter in the left lung base again seen and is unchanged. There is been no mason ge in the bibasilar infiltrates. There is no pneumothorax. Heart size is normal and there is no pulmonary vascular congestion. IMPRESSION: Acute cardiopulmonary disease with no interval change.
[2021-08-28] MEDS: FERROUS SULFATE 325 MG TAB PO SCH (07:51)
[2021-08-28] MEDS: hydrOXYzine HCL 25 MG TAB PO SCH ×3 (07:52→21:13)
[2021-08-28] MEDS: FLUoxetine HCL 20 MG CAP PO SCH (07:52)
[2021-08-28] MEDS: DIVALPROEX SPRINKLE 125 MG CAP.SPRINK PO SCH ×3 (07:52→21:13)
[2021-08-28] MEDS: DIVALPROEX 500 MG TABLET.DR PO SCH ×3 (07:53→21:13)
--- NOTE | 2021-08-28 08:29 | P.PN ---
Subjective Progress Note Date: 08/28/21 Principal diagnosis: Left lung abscess with persistent cough and foul-smelling tenacious green tinged sputum. Previous medical history of chronic tobacco dependence, epilepsy with last seizure in May 2021, asthma, polysubstance abuse, has been in rehab and clean since April 2021 The patient was seen and examined this morning on the medical surgical unit sitting up in bed in no acute distress eating breakfast. Denies any pain or shortness of breath. States he feels better than when he came in. Currently on room air with oxygen saturation the mid 90s. Able to pull 2000 mL on his incentive spirometry. Remains on IV Unasyn. Remains afebrile since 08/25/21. CT of the chest was completed with documented decrease in his abscess, however there is multifocal peribronchovascular groundglass infiltrates and a new right- sided pleural effusion. Pleural fluid Gram stain is preliminary but demonstrates moderate PMNs, many gram-positive cocci, few gram-positive bacilli. Left-sided pigtail remains in place, alteplase/dornase instilled 2, not instilled yesterday, 70 mL thick brown fluid removed in the last 24 hours. Objective - Vital Signs Vital signs: Vital Signs Temp 98.6 F 08/28/21 06:59 Pulse 77 08/28/21 06:59 Resp 18 08/28/21 06:59 BP 103/66 08/28/21 06:59 Pulse Ox 95 08/28/21 06:59 FiO2 Intake & Output 08/27/21 08/28/21 08/28/21 18:59 06:59 18:59 Output Total 0 Balance 0 Output: Chest Tube Drainage 0 Chest Tube Left 0 Other: Voiding Method Toilet - Exam CONSTITUTIONAL: Appears comfortable, cooperative, no acute distress RESPIRATORY: Lungs sounds diminished bilaterally, left greater than right. Respirations even, nonlabored. Currently on room air with oxygen saturation 94- 97%. Able to achieve 2000 mL on incentive spirometry. Strong cough. CARDIOVASCULAR: S1, S2 present. Regular rate and rhythm. Palpable peripheral pulses bilaterally. No edema present. No calf pain or tenderness noted. GASTROINTESTINAL: Abdomen soft, nontender, nondistended. Active bowel sounds present 4 quadrants. Tolerating diet. GENITOURINARY: Continues to void INTEGUMENTARY: Skin is warm and dry with evidence of good perfusion. NEUROLOGIC: Cranial nerves II through XII intact MUSKULOSKELETAL: Able to move all extremities, strength equal bilaterally, gait normal PSYCHIATRIC: Alert and oriented to person place and time, appropriate affect, intact judgment and insight INVASIVE LINES AND TUBES: Left pigtail catheter present and connected to wall suction, no air leaks present, 70 mL thick brown fluid removal in the last 24 hours - Allied health notes Allied health notes reviewed: nursing - Labs CBC & Chem 7: 08/27/21 06:03 08/27/21 06:03 Labs: Abnormal Lab Results - Last 24 Hours (Table) 08/27/21 08/27/21 Range/Units 06:03 06:03 WBC 16.32 H (4.50-10.00) X 10*3/uL RBC 3.38 L (4.40-5.60) X 10*6/uL Hgb 8.7 L (13.0-17.0) g/dL Hct 28.9 L (39.6-50.0) % MCH 25.7 L (27.0-32.0) pg MCHC 30.1 L (32.0-37.0) g/dL BUN 6.6 L (9.0-27.0) mg/dL BUN/Creatinine Ratio 9.43 L (12.00-20.00) Ratio Glucose 116 H (70-110) mg/dL Calcium 8.0 L (8.7-10.3) mg/dL Iron 17 L (65-175) ug/dL TIBC 154 L (228-460) ug/dL % Saturation 10.71 L (15.00-50.00) Transferrin 110.0 L (204.0-354.0) mg/dL Ferritin 494.0 H (22.0-322.0) ng/mL Microbiology - Last 24 Hours (Table) 08/24/21 00:40 Blood Culture - Preliminary Blood No Growth after 96 hours 08/24/21 00:55 Blood Culture - Preliminary Blood No Growth after 96 hours 08/25/21 12:00 Anaerobic Culture - Preliminary Pleural Fluid 08/24/21 21:45 Gram Stain - Final Sputum Sputum Culture - Final - Imaging and Cardiology Chest x-ray: report reviewed, image reviewed Assessment and Plan Assessment: 1. Left lung abscess, status post placement of left pigtail catheter by interventional radiology with alteplase/dornase instilled 2 2. Persistent cough and foul-smelling tenacious green tinged sputum 3. Leukocytosis 4. Chronic tobacco dependence 5. History of epilepsy with last seizure in May 2021 6. History of asthma 7. History of polysubstance abuse, has been in rehab and clean since April 2021 Plan: 1. Continue left chest pigtail catheter to low continuous wall suction -20 cm H2O. 2. Will give alteplase/dornase instillation today. Repeat CT of chest tomorrow 3. Continue to monitor daily chest x-rays. 4. Pain control per current medication regimen 5. Continue to follow sputum cultures and cytology results 6. Encourage use of his incentive spirometry 10 times every hour while awake. 7. Antibiotic management per infectious disease recommendations. 8. Increase activity as tolerated. Out of bed for all meals. May disconnect chest tube from suction when ambulating, return back to low continuous suction after ambulation. 9. Continue to consumer credit counselor and reinforce with the patient the importance of smoking cessation and cessation of polysubstance abuse. 10. More recommendations to follow
[2021-08-28] MEDS: SYMBICORT 160-4.5 MCG INHALER INHALATION SCH ×2 (08:56→20:52)
[2021-08-28 09:24] LABS: HCT 30.1 % (39.6-50.0); MCH 25.6 pg (27.0-32.0); MCHC 29.9 g/dL (32.0-37.0); MCV 85.5 fL (80.0-97.0); Mean Platelet Volume 9.7 fL (9.5-12.2); NRBC Per 100 WBC 0 /100 WBCS (0.0-0.0); Platelet Count 324 X 10*3/uL (140-440); RBC 3.52 X 10*6/uL (4.40-5.60); RDW 13.7 % (11.5-14.5); WBC 14.34 X 10*3/uL (4.50-10.00)
[2021-08-28] MEDS ORDERED: ALTEPLASE 10 MG in SODIUM CHLORIDE 0.9% 50 ML IRRIGATION ONE (10:00)
[2021-08-28] MEDS ORDERED: DORNASE ALFA 5 MG in SODIUM CHLORIDE 0.9% 50 ML IRRIGATION ONE (10:00)
[2021-08-28 10:09] LABS: African American GFR (CKD) 151.8 (60.0-200.0); BUN/Creat Ratio 8.83 Ratio (12.00-20.00); Blood Urea Nitrogen 6.1 mg/dL (9.0-27.0); Carbon Dioxide 25.5 mmol/L (20.0-27.5); Non-African American GFR(CKD) 130.9 (60.0-200.0); Potassium 4.8 mmol/L (3.5-5.5)
--- NOTE | 2021-08-28 13:37 | P.PN ---
Subjective Progress Note Date: 08/28/21 76-year-old male patient with a lung abscess and the patient is supposed to undergo an pigtail catheter insertion and drainage of a left lung abscess by interventional radiology. The patient is clinically doing well. No new complaints. His white cell count today is at her 18.1 and the patient's pro porter citonin level was at 0.27. He is hemodynamically stable. He remains on IV antibiotics and he was seen by infectious disease and he was kept on IV Unasyn 10 2021, the patient has no complaints. The pigtail catheter was inserted yesterday and the patient had purulent material aspirated from the right lung. I coordinated the care with the cardiothoracic team. I was in favor of injecting it with alteplase and after the instillation, total of 170 mL of purulent material came out of the chest tube. Following the instillation, the patient had some increased cough and congestion and some reactions during which he also became febrile with a temperature of 101. Subsequently all of the symptoms improved. Another dose of alteplase was given today without any reactions. He is resting comfortably in bed. Repeat chest x-ray shows interval resolution of the lung abscess seen earlier. Cultures still pending for now. The patient remains on the same antibiotics for now. Electrolytes are normal and the pro-calcitonin level is at 0.27. 08/27/2021, patient is being seen for a follow-up. The patient is resting comfortably in bed. Pigtail catheter in place. The patient will receive 2 al teplase treatment and a total of 200 mL of fluid brownish improvement was aspirated from the left lung over the past 24 hours. Note that a follow-up CAT scan of the chest was also done and showed some groundglass changes on the right and some areas of groundglass changes in the left. Nevertheless, the right lung abscess had decreased in size and there is persistent consolidation of the left lower lobe. The patient remains on IV Unasyn. Cultures are still negative for now. Note that the material to drain from the lung was foul-smelling and tenacious and purulent. He is on room air oxygen. The white cell count is 16.3 with hemoglobin of 8.7. Electrodes are all within normal limits. Serum iron was low at 17 and the Pronestyl level was at 0.27. No altered mentation. 08/28/2021, the patient is being seen for a follow-up a chest x-ray findings are essentially stable. Output from the pigtail catheter drop and the patient was given another alteplase treatment today. The patient otherwise doing well. No specific complaints. He remains on room air oxygen. Using incentive spirometer and the patient remains on Unasyn. Cultures are all negative thus far. Output from the PICC line for yesterday was only 70 mL of thick brownish material. Objective - Vital Signs Vital signs: Vital Signs Temp 98.6 F 08/28/21 06:59 Pulse 77 08/28/21 06:59 Resp 18 08/28/21 06:59 BP 103/66 08/28/21 06:59 Pulse Ox 95 08/28/21 06:59 FiO2 Intake & Output 08/27/21 08/28/21 08/28/21 18:59 06:59 18:59 Output Total 0 Balance 0 Output: Chest Tube Drainage 0 Chest Tube Left 0 Other: Voiding Method Toilet - Exam CONSTITUTIONAL: Lying in bed on the fourth floor medical surgical unit, appears comfortable, cooperative, no apparent acute distress. HEENT: Neck is supple, no JVD, no lymphadenopathy. RESPIRATORY: Lungs sounds diminished to his left lower lobe, essentially clear to his right lobes. Respirations are symmetrical and nonlabored. Currently on room air with oxygen saturations 97%. Able to achieve 150-2000 mL on his incentive spirometry. Strong productive cough with green tinged foul-smelling sputum. Left chest pigtail catheter remains in place to low continuous wall suction -20 cm H2O. No air leak is present. Draining 170 mL of purulent colored drainage in the last 24 hours. CARDIOVASCULAR: Regular rhythm and rate. S1 and S2 present, negative for S3, gallop or murmur. Palpable peripheral pulses bilaterally. No calf pain or tenderness noted. GASTROINTESTINAL: Abdomen soft, nontender, nondistended. Active bowel sounds present 4 quadrants. Tolerating diet. No guarding or rigidity. GENITOURINARY: Continues to void. INTEGUMENTARY: Skin is warm and dry with no evidence of clubbing or cyanosis. Left chest pigtail catheter dressing is clean, dry and intact. NEUROLOGIC: Cranial nerves II through XII intact. No focal deficits. MUSKULOSKELETAL: Able to move all extremities, strength equal bilaterally. PSYCHIATRIC: Alert and oriented to person place and time, appropriate affect, i ntact judgment and insight. - Labs CBC & Chem 7: 08/28/21 04:33 08/28/21 04:33 Labs: Abnormal Lab Results - Last 24 Hours (Table) 08/28/21 08/28/21 Range/Units 04:33 04:33 WBC 14.34 H (4.50-10.00) X 10*3/uL RBC 3.52 L (4.40-5.60) X 10*6/uL Hgb 9.0 L (13.0-17.0) g/dL Hct 30.1 L (39.6-50.0) % MCH 25.6 L (27.0-32.0) pg MCHC 29.9 L (32.0-37.0) g/dL BUN 6.1 L (9.0-27.0) mg/dL BUN/Creatinine Ratio 8.83 L (12.00-20.00) Ratio Calcium 8.0 L (8.7-10.3) mg/dL Microbiology - Last 24 Hours (Table) 08/24/21 00:40 Blood Culture - Preliminary Blood No Growth after 96 hours 08/24/21 00:55 Blood Culture - Preliminary Blood No Growth after 96 hours 08/25/21 12:00 Anaerobic Culture - Preliminary Pleural Fluid 08/24/21 21:45 Gram Stain - Final Sputum Sputum Culture - Final Assessment and Plan Plan: Lung abscess occupying the left lower lobe. This is a large complex structure measuring around 10 cm in size and it includes fluid, air and agrees. the patient underwent a percutaneous pigtail catheter insertion with purulent material being aspirated from the left lung. The chest x-ray showing improvement in the abscess in the left lung. the patient had to alteplase t reatments with drainage in the order of 170 mL of purulent material from the left lung. He is afebrile. He is on IV Unasyn. A repeat CAT scan of the chest was done that showed diminution of the left lung abscess. There is persistent consolidation of left lower lobe. There are areas of ground glass changes developing bilaterally. Could be in acute lung injury or reaction to alteplase treatment. Since the alteplase treatment 2, the patient has a more than 200 mL of purulent putrid material from the left lung. Remains on IV Unasyn. Hemodynamically stable. Over the past 24 hours, the patient brought only 70 mL and the patient will receive a third dose of alteplase today. This will need to be followed up by another CAT scan of the chest. History of seizure disorder History of polysubstance abuse Leukocytosis secondary to lung abscess History of bronchial asthma Plan We will do a third alteplase treatment Monitor output Repeat CAT scan of the chest in a.m. Awaiting final cultures Continue IV Unasyn monitor the output from the pigtail catheter May need a follow-up
--- NOTE | 2021-08-28 15:32 | P.PN ---
Subjective Progress Note Date: 08/28/21 Hospital course: Patient is a 26-year-old male with prior history of polysubstance abuse sober for 4 months, asthma, and epilepsy who presented to the ER with complaints of cough and foul-smelling sputum. In the ER he underwent an extensive evaluation. Initial vital signs were within normal limits. However he then spiked a fever of 101. Laboratory analysis demonstrated a white blood cell count of 16.5, hemoglobin 9.8, d-dimer 1.5, potassium 3.4. COVID-19 testing was negative. Chest x-ray showed a large area of airspace consolidation in the left lower lobe. CT of the chest showed a large complex fluid collection in the left lower hemithorax likely related to large lung abscess. Patient was started on IV fluids and Unasyn. He was admitted for further monitoring. Pulmonary was consulted. He was seen by infectious disease who recommended continuing Unasyn. He underwent IR guided chest tube placement for pulmonary abscess on 08/25. He was seen by cardiothoracic surgery. They instilled TPA into his chest tube. Cultures negative to date. Physical examination: Patient seen and examined at bedside. Repeat x-rays completed this morning showing no change in right basilar infiltrate. Cardiothoracic surgery evaluated patient this morning plans to administer third dose of TPA into chest tube. Patient currently denies having any complaints other than unchanged mild back discomfort. He denies having any chest pain, palpitations, or shortness of breath and reports improvement in cough. Vital signs remained stable. Patient remains on Unasyn General: non toxic, no distress, appears at stated age Derm: warm, dry Head: atraumatic, normocephalic, symmetric Eyes: EOMI, no lid lag, anicteric sclera Mouth: no lip lesion, mucus membranes moist Cardiovascular: S1S2 reg, no murmur, positive posterior tibial pulse bilateral, Lungs: CTA bilateral, no rhonchi, no rales , no accessory muscle use. Chest tube in place left thoracic region of back Abdominal: soft, nontender to palpation, no guarding, no appreciable organomegaly Ext: no gross muscle atrophy, no edema, no contractures Neuro: CN II-XI grossly intact, no focal neuro deficits Psych: Alert, oriented, appropriate affect Assessment and plan of care: Left lung abscess with sepsis status post pigtail catheter insertion 08/25/21 and TPA X 2 with plans to administer third dose of TPA today. -Pulmonology following, appreciate further recommendations -Infectious disease following, appreciate further recommendations -Continue with IV antibiotic: Unasyn pending further culture results and/or f jessikather recommendations from infectious disease -CT surgery following, appreciate recommendations -Cultures negative to date -IV fluids Discontinued as patient is tolerating oral intake. -Continue pain medication regimen, Toradol 15 mg IVP every 6 hours -Patient report negative HIV and Hep C testing 2 weeks ago. Iron deficiency anemia Anemia -Iron 17, TIBC 154, iron percent saturation 10.71 and ferritin 110.0. -Hemoglobin stable at 8.7 -Patient started on oral ferrous sulfate 325 mg daily -Follow CBC History of opiate dependency -In remission on Suboxone Seizure disorder -Depakote -Seizure precautions Asthma without exacerbation -Bronchodilators when necessary and scheduled CODE STATUS full code DVT prophylaxis: Heparin Discussed with: Patient and RN Anticipated discharge: Pending clinical course Anticipated discharge place: Home A total of 33 minutes was spent on the care of this complex patient more than 50% of the time was spent in counseling and care coordination. I reviewed the documentation as provided by the GEOFF above, who is the original author of this note. I agree with the documented assessment and plan, with the following changes: none Objective - Vital Signs Vital signs: Vital Signs Temp 98.5 F 08/28/21 02:07 Pulse 74 08/28/21 02:07 Resp 16 08/28/21 02:07 BP 96/50 08/28/21 02:07 Pulse Ox 94 L 08/28/21 02:07 FiO2 Intake & Output 08/27/21 08/28/21 08/28/21 18:59 06:59 18:59 Output Total 0 Balance 0 Output: Chest Tube Drainage 0 Chest Tube Left 0 Other: Voiding Method Toilet - Labs CBC & Chem 7: 08/29/21 05:07 08/29/21 05:07 Labs: Abnormal Lab Results - Last 24 Hours (Table) 08/27/21 08/27/21 Range/Units 06:03 06:03 WBC 16.32 H (4.50-10.00) X 10*3/uL RBC 3.38 L (4.40-5.60) X 10*6/uL Hgb 8.7 L (13.0-17.0) g/dL Hct 28.9 L (39.6-50.0) % MCH 25.7 L (27.0-32.0) pg MCHC 30.1 L (32.0-37.0) g/dL BUN 6.6 L (9.0-27.0) mg/dL BUN/Creatinine Ratio 9.43 L (12.00-20.00) Ratio Glucose 116 H (70-110) mg/dL Calcium 8.0 L (8.7-10.3) mg/dL Iron 17 L (65-175) ug/dL TIBC 154 L (228-460) ug/dL % Saturation 10.71 L (15.00-50.00) Transferrin 110.0 L (204.0-354.0) mg/dL Ferritin 494.0 H (22.0-322.0) ng/mL Microbiology - Last 24 Hours (Table) 08/24/21 00:40 Blood Culture - Preliminary Blood No Growth after 96 hours 08/24/21 00:55 Blood Culture - Preliminary Blood No Growth after 96 hours 08/25/21 12:00 Anaerobic Culture - Preliminary Pleural Fluid 08/24/21 21:45 Gram Stain - Final Sputum Sputum Culture - Final
[2021-08-28] MEDS: OLANZapine 10 MG TAB PO SCH (21:14)
[2021-08-28] MEDS: ACETAMINOPHEN TAB 325 MG TAB PO PRN (21:14)
[2021-08-29] MEDS: AMPICILLIN-SULBACTAM 3 GM in SODIUM CHLORIDE 0.9% 100 ML IVPB SCH ×4 (02:55→22:35)
[2021-08-29] MEDS: HEPARIN SODIUM,PORCINE/PF 5,000 UNIT/0.5 ML SYRINGE SQ SCH ×2 (07:17→15:07)
[2021-08-29] MEDS: DIVALPROEX SPRINKLE 125 MG CAP.SPRINK PO SCH ×3 (07:24→22:36)
[2021-08-29] MEDS: hydrOXYzine HCL 25 MG TAB PO SCH ×3 (07:24→22:36)
[2021-08-29] MEDS: DIVALPROEX 500 MG TABLET.DR PO SCH ×3 (07:24→22:36)
[2021-08-29] MEDS: FLUoxetine HCL 20 MG CAP PO SCH (07:26)
[2021-08-29 08:59] LABS: HCT 29.6 % (39.6-50.0); HGB 8.9 g/dL (13.0-17.0); MCH 25.5 pg (27.0-32.0); MCHC 30.1 g/dL (32.0-37.0); MCV 84.8 fL (80.0-97.0); Mean Platelet Volume 9.4 fL (9.5-12.2); NRBC Per 100 WBC 0 /100 WBCS (0.0-0.0); Platelet Count 306 X 10*3/uL (140-440); RBC 3.49 X 10*6/uL (4.40-5.60); RDW 13.5 % (11.5-14.5)
[2021-08-29 09:07] LABS: ALT 16 U/L (10-49); AST 22 U/L (14-35); Albumin 2.2 g/dL (3.8-4.9); Albumin/Globulin Ratio 0.69 (1.60-3.17); Alkaline Phosphatase 81 U/L (41-126); BUN/Creat Ratio 9.14 Ratio (12.00-20.00); Blood Urea Nitrogen 6.4 mg/dL (9.0-27.0); Calcium 8.2 mg/dL (8.7-10.3); Carbon Dioxide 27.1 mmol/L (20.0-27.5); Chloride 101 mmol/L (96-109); Globulin 3.2 g/dL (1.6-3.3); Glucose 101 mg/dL (70-110); Non-African American GFR(CKD) 130.2 (60.0-200.0); Potassium 4.5 mmol/L (3.5-5.5); Sodium 140 mmol/L (135-145); Total Bilirubin <0.15 mg/dL (0.30-1.20); Total Protein 5.4 g/dL (6.2-8.2)
[2021-08-29] MEDS: SYMBICORT 160-4.5 MCG INHALER INHALATION SCH ×2 (09:56→21:36)
--- NOTE | 2021-08-29 11:09 | CT ---
EXAMINATION TYPE: CT chest wo con DATE OF EXAM: 08/29/2021 INDICATION: Pneumonia, Lung abscess CT DLP: 371.7 mGy.cm Automated Exposure Control for Dose Reduction was Utilized. TECHNIQUE AND CONTRAST: CT scan of the chest without IV contrast administration. COMPARISON: CT dated 08/26/2021. TECHNIQUE: Multiplanar CT scan of the chest without IV contrast administration. FINDINGS: Suboptimal assessment of the known abscess along the left lung base due to the lack of IV contrast ad ministration. With this limitation, grossly stable of the abscess measuring up to 6.4 cm with apparen t less fluid component and more thick soft tissue component. Unchanged position of the pigtail draina ge catheter. Persistent left lower lobe thick consolidation with air bronchogram within, slightly improved compare d to the previous CT scan. Persistent bilateral pulmonary areas of groundglass opacities and pulmonar y consolidation, increased in density today compared to the previous CT scan and possibly representin g extensive pulmonary infection. Septic emboli cannot be excluded. Patent trachea and main bronchi. No right-sided pleural effusion. No definite pneumothorax. No cardio megaly. Reduced blood density within the heart which may suggest anemia, please correlate with CBC re sults/hemoglobin level. Stable anterior mediastinal soft tissue density, possibly representing residual thymic tissue. Multip le variable sized mediastinal lymph nodes measuring up to 13 mm in the subcarinal region compared to 12 mm previously. No axillary lymphadenopathy. Bulky spleen. No aggressive bone lesion. IMPRESSION: Suboptimal assessment due to the lack of IV contrast administration. Apparently less fluid component of the known abscess along the left lung base with other interval sai nges as described above.
[2021-08-29] MEDS: FERROUS SULFATE 325 MG TAB PO SCH (11:21)
--- NOTE | 2021-08-29 14:41 | P.PN ---
Subjective Progress Note Date: 08/29/21 Principal diagnosis: left lung abscess 76-year-old male patient with a lung abscess and the patient is supposed to undergo an pigtail catheter insertion and drainage of a left lung abscess by interventional radiology. The patient is clinically doing well. No new complaints. His white cell count today is at her 18.1 and the patient's pro calcitonin level was at 0.27. He is hemodynamically stable. He remains on IV antibiotics and he was seen by infectious disease and he was kept on IV Unasyn 10 2021, the patient has no complaints. The pigtail catheter was inserted ye sterday and the patient had purulent material aspirated from the right lung. I coordinated the care with the cardiothoracic team. I was in favor of injecting it with alteplase and after the instillation, total of 170 mL of purulent material came out of the chest tube. Following the instillation, the patient had some increased cough and congestion and some reactions during which he also became febrile with a temperature of 101. Subsequently all of the symptoms improved. Another dose of alteplase was given today without any reactions. He is resting comfortably in bed. Repeat chest x-ray shows interval resolution of the lung abscess seen earlier. Cultures still pending for now. The patient remains on the same antibiotics for now. Electrolytes are normal and the pro- calcitonin level is at 0.27. 08/27/2021, patient is being seen for a follow-up. The patient is resting comfortably in bed. Pigtail catheter in place. The patient will receive 2 alteplase treatment and a total of 200 mL of fluid brownish improvement was aspirated from the left lung over the past 24 hours. Note that a follow-up CAT scan of the chest was also done and showed some groundglass changes on the right and some areas of groundglass changes in the left. Nevertheless, the right lung abscess had decreased in size and there is persistent consolidation of the left lower lobe. The patient remains on IV Unasyn. Cultures are still negative for now. Note that the material to drain from the lung was foul-smelling and tenacious and purulent. He is on room air oxygen. The white cell count is 16.3 with hemoglobin of 8.7. Electrodes are all within normal limits. Serum iron was low at 17 and the Pronestyl level was at 0.27. No altered mentation. 08/28/2021, the patient is being seen for a follow-up a chest x-ray findings are essentially stable. Output from the pigtail catheter drop and the patient was given another alteplase treatment today. The patient otherwise doing well. No specific complaints. He remains on room air oxygen. Using incentive spirometer and the patient remains on Unasyn. Cultures are all negative thus far. Output from the PICC line for yesterday was only 70 mL of thick brownish material. on 08/29/2021 patient seen in follow-up on medical surgical floor. He is resting comfortably in bed, he states he is feeling better, does not appear to be in any acute distress, denies chest pain, denies any hemoptysis, room air pulse ox is 95%. patient had another Dorse instillation into the left-side pigtail catheter. Pleural fluid cultures were positive for alpha hemolytic streptococcus. Patient remains on Unasyn, ID service is following. His had no acute events overnight. Objective - Vital Signs Vital signs: Vital Signs Temp 99.1 F 08/29/21 13:42 Pulse 71 08/29/21 13:42 Resp 20 08/29/21 13:42 BP 116/68 08/29/21 13:42 Pulse Ox 95 08/29/21 13:42 FiO2 Intake & Output 08/28/21 08/29/21 08/29/21 18:59 06:59 18:59 Intake Total 100 Balance 100 Intake: Intake, IV Titration 100 Amount Ampicillin-Sulbactam 3 gm 100 In Sodium Chloride 0.9% 100 ml @ 200 mls/hr IVPB Q6H [facility] Rx#:[id number] Other: Voiding Method Toilet Toilet # Voids 3 3 - Exam GENERAL EXAM: Alert, active, comfortable in no apparent distress. HEAD: Normocephalic/atraumatic. EYES: Normal reaction of pupils, equal size. Conjunctiva pink, sclera white. NOSE: Clear with pink turbinates. THROAT: No erythema or exudates. NECK: No masses, no JVD, no thyroid enlargement, no adenopathy. CHEST: No chest wall deformity. Symmetrical expansion. left posterior pigtail catheter in place, connected to the pleuravac LUNGS: Equal air entry with no crackles, wheeze, rhonchi or dullness. CVS: Regular rate and rhythm, normal S1 and S2, no gallops, no murmurs, no rubs ABDOMEN: Soft, nontender. No hepatosplenomegaly, normal bowel sounds, no guarding or rigidity. EXTREMITIES: No clubbing, no edema, no cyanosis, 2+ pulses and upper and lower extremities. MUSCULOSKELETAL: Muscle strength and tone normal. SPINE: No scoliosis or deformity SKIN: No rashes CENTRAL NERVOUS SYSTEM: Alert and oriented -3. No focal deficits, tone is normal in all 4 extremities. PSYCHIATRIC: Alert and oriented -3. Appropriate affect. Intact judgment and insight. - Labs CBC & Chem 7: 08/29/21 05:07 08/29/21 05:07 Labs: Abnormal Lab Results - Last 24 Hours (Table) 08/29/21 08/29/21 Range/Units 05:07 05:07 WBC 13.60 H (4.50-10.00) X 10*3/uL RBC 3.49 L (4.40-5.60) X 10*6/uL Hgb 8.9 L (13.0-17.0) g/dL Hct 29.6 L (39.6-50.0) % MCH 25.5 L (27.0-32.0) pg MCHC 30.1 L (32.0-37.0) g/dL MPV 9.4 L (9.5-12.2) fL BUN 6.4 L (9.0-27.0) mg/dL BUN/Creatinine Ratio 9.14 L (12.00-20.00) Ratio Calcium 8.2 L (8.7-10.3) mg/dL Total Bilirubin <0.15 L (0.30-1.20) mg/dL Total Protein 5.4 L (6.2-8.2) g/dL Albumin 2.2 L (3.8-4.9) g/dL Albumin/Globulin Ratio 0.69 L (1.60-3.17) g/dL Microbiology - Last 24 Hours (Table) 08/24/21 00:55 Blood Culture - Preliminary Blood No Growth after 120 hours 08/24/21 00:40 Blood Culture - Preliminary Blood No Growth after 120 hours 08/25/21 12:00 Gram Stain - Preliminary Pleural Fluid Body Fluid Culture - Preliminary Alpha Hemolytic Streptococcus Assessment and Plan Plan: assessment: #1. Lung abscess occupying the left lower lobe. This is a large complex structure measuring around 10 cm in size and it includes fluid, air and agrees. the patient underwent a percutaneous pigtail catheter insertion with purulent material being aspirated from the left lung. The chest x-ray showing improvement in the abscess in the left lung. the patient had to alteplase treatments with drainage in the order of 170 mL of purulent material from the left lung. He is afebrile. He is on IV Unasyn. A repeat CAT scan of the chest was done that showed diminution of the left lung abscess. There is persistent consolidation of left lower lobe. There are areas of ground glass changes developing bilaterally. Could be in acute lung injury or reaction to alteplase treatment. Since the alteplase treatment 2, the patient has a more than 200 mL of purulent putrid material from the left lung. Remains on IV Unasyn. Hemodynamically stable. #2.History of seizure disorder #3.History of polysubstance abuse #4.Leukocytosis secondary to lung abscess #5. History of bronchial asthma plan: CT chest has been reviewed it showed very slight improvement in the left lower lobe thick consolidation with persistent bilateral areas of groundglass opacities and pulmonary consolidation Clinically patient is stable denies any acute distress, he remains on room air, his been afebrile. alteplase infusion per CT surgery Will likely need a PICC line placement and IV antibiotics after discharge home continue encouraging deep breathing and coughing GI and DVT prophylaxis I have personally seen and examined the patient, performed the documentation and the assessment and plan as written. Number of minutes spent on the visit: [10] Time with Patient: Less than 30
--- NOTE | 2021-08-29 14:51 | P.PN ---
Subjective Progress Note Date: 08/29/21 Hospital course: Patient is a 26-year-old male with prior history of polysubstance abuse sober for 4 months, asthma, and epilepsy who presented to the ER with complaints of cough and foul-smelling sputum. In the ER he underwent an extensive evaluation. Initial vital signs were within normal limits. However he then spiked a fever of 101. Laboratory analysis demonstrated a white blood cell count of 16.5, hemoglobin 9.8, d-dimer 1.5, potassium 3.4. COVID-19 testing was negative. Chest x-ray showed a large area of airspace consolidation in the left lower lobe. CT of the chest showed a large complex fluid collection in the left lower hemithorax likely related to large lung abscess. Patient was started on IV fluids and Unasyn. He was admitted for further monitoring. Pulmonary was consulted. He was seen by infectious disease who recommended continuing Unasyn. He underwent IR guided chest tube placement for pulmonary abscess on 08/25. He was seen by cardiothoracic surgery. They instilled TPA into his chest tube. Cultures negative to date. Physical examination: Patient seen and examined at bedside this morning and going down for a CT. Patient reports feeling unchanged. He continues report minimal shortness of breath, mild achiness to his back and occasional cough. He continues to deny having any chest pain, palpitations, nausea, vomiting, fevers, chills, or any other complaints. Last noted temp documented during hospital stay was on 08/25/21 in which patient's temp was 101.0F. Patient remains on Unasyn. General: non toxic, no distress, appears at stated age Derm: warm, dry Head: atraumatic, normocephalic, symmetric Eyes: EOMI, no lid lag, anicteric sclera Mouth: no lip lesion, mucus membranes moist Cardiovascular: S1S2 reg, no murmur, positive posterior tibial pulse bilateral, Lungs: CTA bilateral, no rhonchi, no rales , no accessory muscle use. Chest tube in place left thoracic region of back Abdominal: soft, nontender to palpation, no guarding, no appreciable organomegaly Ext: no gross muscle atrophy, no edema, no contractures Neuro: CN II-XI grossly intact, no focal neuro deficits Psych: Alert, oriented, appropriate affect Assessment and plan of care: Left lung abscess with sepsis status post pigtail catheter insertion 6/9/22 and TPA X 3 -Pulmonology following, appreciate further recommendations -Infectious disease following, appreciate further recommendations -Continue with IV antibiotic: Unasyn pending further culture results and/or further recommendations from infectious disease -CT surgery following, appreciate recommendations -Cultures negative to date -IV fluids Discontinued as patient is tolerating oral intake. -Continue pain medication regimen, Toradol 15 mg IVP every 6 hours -Patient report negative HIV and Hep C testing 2 weeks ago. Iron deficiency anemia Anemia -Iron 17, TIBC 154, iron percent saturation 10.71 and ferritin 110.0. -Hemoglobin stable at 8.7 -Patient started on oral ferrous sulfate 325 mg daily -Follow CBC History of opiate dependency -In remission on Suboxone Seizure disorder -Depakote -Seizure precautions Asthma without exacerbation -Bronchodilators when necessary and scheduled CODE STATUS full code DVT prophylaxis: Heparin Discussed with: Patient and RN Anticipated discharge: Pending clinical course Anticipated discharge place: Home A total of 33 minutes was spent on the care of this complex patient more than 50% of the time was spent in counseling and care coordination. I reviewed the documentation as provided by the GEOFF above, who is the original author of this note. I agree with the documented assessment and plan, with the following changes: none Objective - Vital Signs Vital signs: Vital Signs Temp 97.2 F L 08/29/21 07:17 Pulse 74 08/29/21 07:17 Resp 20 08/29/21 07:17 BP 105/67 08/29/21 07:17 Pulse Ox 96 08/29/21 07:17 FiO2 Intake & Output 08/28/21 08/29/21 08/29/21 18:59 06:59 18:59 Intake Total 100 Balance 100 Intake: Intake, IV Titration 100 Amount Ampicillin-Sulbactam 3 gm 100 In Sodium Chloride 0.9% 100 ml @ 200 mls/hr IVPB Q6H [facility] Rx#:[id number] Other: Voiding Method Toilet # Voids 3 3 - Labs CBC & Chem 7: 08/29/21 05:07 08/29/21 05:07 Labs: Abnormal Lab Results - Last 24 Hours (Table) 08/28/21 08/28/21 Range/Units 04:33 04:33 WBC 14.34 H (4.50-10.00) X 10*3/uL RBC 3.52 L (4.40-5.60) X 10*6/uL Hgb 9.0 L (13.0-17.0) g/dL Hct 30.1 L (39.6-50.0) % MCH 25.6 L (27.0-32.0) pg MCHC 29.9 L (32.0-37.0) g/dL BUN 6.1 L (9.0-27.0) mg/dL BUN/Creatinine Ratio 8.83 L (12.00-20.00) Ratio Calcium 8.0 L (8.7-10.3) mg/dL Microbiology - Last 24 Hours (Table) 08/24/21 00:55 Blood Culture - Preliminary Blood No Growth after 120 hours 08/24/21 00:40 Blood Culture - Preliminary Blood No Growth after 120 hours 08/25/21 12:00 Gram Stain - Preliminary Pleural Fluid Body Fluid Culture - Preliminary Alpha Hemolytic Streptococcus
--- NOTE | 2021-08-29 16:31 | P.PN ---
Subjective Progress Note Date: 08/29/21 Principal diagnosis: Left lung abscess with persistent cough and foul-smelling tenacious green tinged sputum. Past medical history significant for epilepsy with his last seizure in May 2021, asthma, polysubstance abuse in which he reports that he has been in rehab for since April 2021. He also has a history of chronic ongoing tobacco abuse. The patient was seen and examined this morning 08/29/2021 at his bedside on the fourth floor medical surgical unit. Currently he is laying in bed, is awake, alert, oriented 3 and is in no acute apparent distress. Left chest pigtail catheter remains in place to low continuous wall suction -20 cm H2O. There was no air leak present. He was instilled with a dose of all to place/dornase yesterday with 100 mL of serous drainage returned in the last 24 hours. Oxygen saturations are 97% on room air and he is achieving 2000 L on his incentive spirometry encouragement. He remains on Unasyn for antibiotic coverage followed by infectious disease for pleural fluid cultures positive for alpha hemolytic streptococcus. Laboratory results this morning continued to show his WBC count trending down at 13.6, hemoglobin 8.9, hematocrit 29.6, platelets 306, sodium 140, potassium 4.5, BUN 6.4, creatinine 0.7, and calcium 8.2. A computed tomography scan of his chest is scheduled for this morning. Objective - Vital Signs Vital signs: Vital Signs Temp 99.1 F 08/29/21 13:42 Pulse 71 08/29/21 13:42 Resp 20 08/29/21 13:42 BP 116/68 08/29/21 13:42 Pulse Ox 95 08/29/21 13:42 FiO2 Intake & Output 08/28/21 08/29/21 08/29/21 18:59 06:59 18:59 Intake Total 100 1080 Balance 100 1080 Intake: Intake, IV Titration 100 Amount Ampicillin-Sulbactam 3 gm 100 In Sodium Chloride 0.9% 100 ml @ 200 mls/hr IVPB Q6H [facility] Rx#:[id number] Oral 1080 Other: Voiding Method Toilet Toilet # Voids 3 3 3 - Exam CONSTITUTIONAL: Lying in bed on the fourth floor medical surgical unit, appears comfortable, cooperative, no apparent acute distress. HEENT: Neck is supple, no JVD, no lymphadenopathy. RESPIRATORY: Lungs sounds diminished to his left lower lobe, essentially clear to his right lobes. Respirations are symmetrical and nonlabored. Currently on room air with oxygen saturations 97%. Able to achieve 2000 mL on his incentive spirometry. Strong productive cough. Left chest pigtail catheter remains in place to low continuous wall suction -20 cm H2O. No air leak is present. Draining 100 mL of serous/purulent colored drainage in the last 24 hours. CARDIOVASCULAR: Regular rhythm and rate. S1 and S2 present, negative for S3, gallop or murmur. Palpable peripheral pulses bilaterally. No calf pain or tenderness noted. GASTROINTESTINAL: Abdomen soft, nontender, nondistended. Active bowel sounds present 4 quadrants. Tolerating diet. No guarding or rigidity. GENITOURINARY: Continues to void. INTEGUMENTARY: Skin is warm and dry with no evidence of clubbing or cyanosis. Left chest pigtail catheter dressing is clean, dry and intact. NEUROLOGIC: Cranial nerves II through XII intact. No focal deficits. MUSKULOSKELETAL: Able to move all extremities, strength equal bilaterally. PSYCHIATRIC: Alert and oriented to person place and time, appropriate affect, intact judgment and insight. - Allied health notes Allied health notes reviewed: nursing - Labs CBC & Chem 7: 08/29/21 05:07 08/29/21 05:07 Labs: Abnormal Lab Results - Last 24 Hours (Table) 08/29/21 08/29/21 Range/Units 05:07 05:07 WBC 13.60 H (4.50-10.00) X 10*3/uL RBC 3.49 L (4.40-5.60) X 10*6/uL Hgb 8.9 L (13.0-17.0) g/dL Hct 29.6 L (39.6-50.0) % MCH 25.5 L (27.0-32.0) pg MCHC 30.1 L (32.0-37.0) g/dL MPV 9.4 L (9.5-12.2) fL BUN 6.4 L (9.0-27.0) mg/dL BUN/Creatinine Ratio 9.14 L (12.00-20.00) Ratio Calcium 8.2 L (8.7-10.3) mg/dL Total Bilirubin <0.15 L (0.30-1.20) mg/dL Total Protein 5.4 L (6.2-8.2) g/dL Albumin 2.2 L (3.8-4.9) g/dL Albumin/Globulin Ratio 0.69 L (1.60-3.17) g/dL Microbiology - Last 24 Hours (Table) 08/24/21 00:55 Blood Culture - Preliminary Blood No Growth after 120 hours 08/24/21 00:40 Blood Culture - Preliminary Blood No Growth after 120 hours 08/25/21 12:00 Gram Stain - Preliminary Pleural Fluid Body Fluid Culture - Preliminary Alpha Hemolytic Streptococcus - Imaging and Cardiology Chest x-ray: report reviewed, image reviewed Assessment and Plan Assessment: 1. Left lower lobe lung abscess, status post placement of left pleural pigtail catheter by interventional radiology, with alteplase/dornase instilled 3 2. Leukocytosis, secondary to left lower lobe lung abscess 3. Persistent cough and foul-smelling tenacious green tinged sputum, secondary to above 4 History of asthma 5. History of seizure disorder, states his last seizure was in May 2021 6. History of polysubstance abuse, currently in rehab since April 2021 7. Chronic ongoing tobacco abuse Plan: 1. Continue left chest pigtail catheter to low continuous wall suction -20 cm H2O. 2. Computed tomography scan of the chest is scheduled for this a.m. 3. Continue to monitor daily chest x-rays. 4. Pain control per current when necessary orders. 5. Continue to follow sputum cultures and cytology results. Pleural fluid culture shows alpha hemolytic streptococcus. He remains on Unasyn for antibiotic coverage which is being managed by infectious disease. 6. Encourage use of his incentive spirometry 10 times every hour while awake. 7. Antibiotic management per infectious disease recommendations. 8. Increase activity as tolerated. Out of bed for all meals. May disconnect chest tube from suction when ambulating, return back to low continuous suction after ambulation. 9. Continue to claims counsel and reinforce with the patient the importance of smoking cessation and cessation of polysubstance abuse. 10. More recommendations to follow based on patient's clinical course. Time with Patient: Greater than 30
[2021-08-29] MEDS: ACETAMINOPHEN TAB 325 MG TAB PO PRN (19:18)
[2021-08-29] MEDS: OLANZapine 10 MG TAB PO SCH (22:36)
[2021-08-30] MEDS: HEPARIN SODIUM,PORCINE/PF 5,000 UNIT/0.5 ML SYRINGE SQ SCH ×4 (00:14→23:23)
[2021-08-30] MEDS: AMPICILLIN-SULBACTAM 3 GM in SODIUM CHLORIDE 0.9% 100 ML IVPB SCH ×4 (04:08→21:16)
--- NOTE | 2021-08-30 07:27 | P.PN ---
Subjective Progress Note Date: 08/28/21 Principal diagnosis: Left lung abscess Patient is a 26-year-old male presenting to the hospital with not feeling with left-sided chest pain cough with foul-smelling purulent sputum and this patient did have evidence of left-sided lung abscess status post chest tube placement by interventional radiology on 08/25/2021. On today's evaluation that is 08/28/2021, the patient continues to be afebrile, the patient is breathing comfortably on room air, the patient left-sided chest pain has decreased in intensity, the patient denies nausea no vomiting no abdominal pain or diarrhea Objective - Vital Signs Vital signs: Vital Signs Temp 98 F 08/28/21 14:18 Pulse 74 08/28/21 14:18 Resp 18 08/28/21 14:18 BP 111/68 08/28/21 14:18 Pulse Ox 97 08/28/21 14:18 FiO2 Intake & Output 08/27/21 08/28/21 08/28/21 18:59 06:59 18:59 Output Total 0 Balance 0 Output: Chest Tube Drainage 0 Chest Tube Left 0 Other: Voiding Method Toilet # Voids 3 - Exam GENERAL DESCRIPTION: Young male lying in bed in no distress RESPIRATORY SYSTEM: Unlabored breathing , decreased breath sounds at bases, Left-sided Chest tube HEART: S1 S2 regular rate and rhythm , ABDOMEN: Soft , no tenderness EXTREMITIES: No edema feet - Labs CBC & Chem 7: 08/29/21 05:07 08/29/21 05:07 Labs: Abnormal Lab Results - Last 24 Hours (Table) 08/28/21 08/28/21 Range/Units 04:33 04:33 WBC 14.34 H (4.50-10.00) X 10*3/uL RBC 3.52 L (4.40-5.60) X 10*6/uL Hgb 9.0 L (13.0-17.0) g/dL Hct 30.1 L (39.6-50.0) % MCH 25.6 L (27.0-32.0) pg MCHC 29.9 L (32.0-37.0) g/dL BUN 6.1 L (9.0-27.0) mg/dL BUN/Creatinine Ratio 8.83 L (12.00-20.00) Ratio Calcium 8.0 L (8.7-10.3) mg/dL Microbiology - Last 24 Hours (Table) 08/24/21 00:40 Blood Culture - Preliminary Blood No Growth after 96 hours 08/24/21 00:55 Blood Culture - Preliminary Blood No Growth after 96 hours 08/25/21 12:00 Anaerobic Culture - Preliminary Pleural Fluid Assessment and Plan (1) Lung abscess Current Visit: Yes Status: Acute Code(s): J85.2 - ABSCESS OF LUNG WITHOUT PNEUMONIA SNOMED Code(s): 53246928 Plan: 1patient presented to hospital with symptoms with on for more than a month with left-sided chest pain cough purulent sputum with evidence of lung abscess on CT angiogram question of possible aspiration etiology and will need to cover for the polymicrobial wayne associated this infection. 2patient is status post IR drainage of this abscess and placement of the chest tube, 08/25/2021 and status post alteplase instillations times x [address] surgery 3- pleural fluid as well as sputum cultures currently pending, and blood cultures are negative 4patient to continue with Unasyn 3 g every 6 hours and monitor clinical course closely Time with Patient: Less than 30
--- NOTE | 2021-08-30 07:29 | P.PN ---
Subjective Progress Note Date: 08/29/21 Principal diagnosis: Left lung abscess Patient is a 26-year-old male presenting to the hospital with not feeling with left-sided chest pain cough with foul-smelling purulent sputum and this patient did have evidence of left-sided lung abscess status post chest tube placement by interventional radiology on 08/25/2021. On today's evaluation that is 08/29/2021, the patient denies any fever or any chills, the patient is breathing comfortably on room air, the patient left-sided chest pain has decreased in intensity, the patient cough is decreased intensity is well, the patient denies nausea no vomiting no abdominal pain or diarrhea Objective - Vital Signs Vital signs: Vital Signs Temp 97.2 F L 08/29/21 07:17 Pulse 74 08/29/21 08:13 Resp 20 08/29/21 08:13 BP 105/67 08/29/21 07:17 Pulse Ox 96 08/29/21 07:17 FiO2 Intake & Output 08/28/21 08/29/21 08/29/21 18:59 06:59 18:59 Intake Total 100 Balance 100 Intake: Intake, IV Titration 100 Amount Ampicillin-Sulbactam 3 gm 100 In Sodium Chloride 0.9% 100 ml @ 200 mls/hr IVPB Q6H [facility] Rx#:[id number] Other: Voiding Method Toilet Toilet # Voids 3 3 - Exam GENERAL DESCRIPTION: Young male lying in bed in no distress RESPIRATORY SYSTEM: Unlabored breathing , decreased breath sounds at bases, Left-sided Chest tube HEART: S1 S2 regular rate and rhythm , ABDOMEN: Soft , no tenderness EXTREMITIES: No edema feet - Labs CBC & Chem 7: 08/29/21 05:07 08/29/21 05:07 Labs: Abnormal Lab Results - Last 24 Hours (Table) 08/29/21 08/29/21 Range/Units 05:07 05:07 WBC 13.60 H (4.50-10.00) X 10*3/uL RBC 3.49 L (4.40-5.60) X 10*6/uL Hgb 8.9 L (13.0-17.0) g/dL Hct 29.6 L (39.6-50.0) % MCH 25.5 L (27.0-32.0) pg MCHC 30.1 L (32.0-37.0) g/dL MPV 9.4 L (9.5-12.2) fL BUN 6.4 L (9.0-27.0) mg/dL BUN/Creatinine Ratio 9.14 L (12.00-20.00) Ratio Calcium 8.2 L (8.7-10.3) mg/dL Total Bilirubin <0.15 L (0.30-1.20) mg/dL Total Protein 5.4 L (6.2-8.2) g/dL Albumin 2.2 L (3.8-4.9) g/dL Albumin/Globulin Ratio 0.69 L (1.60-3.17) g/dL Microbiology - Last 24 Hours (Table) 08/24/21 00:55 Blood Culture - Preliminary Blood No Growth after 120 hours 08/24/21 00:40 Blood Culture - Preliminary Blood No Growth after 120 hours 08/25/21 12:00 Gram Stain - Preliminary Pleural Fluid Body Fluid Culture - Preliminary Alpha Hemolytic Streptococcus Assessment and Plan (1) Lung abscess Current Visit: Yes Status: Acute Code(s): J85.2 - ABSCESS OF LUNG WITHOUT PNEUMONIA SNOMED Code(s): 34096161 Plan: 1patient presented to hospital with symptoms with on for more than a month with left-sided chest pain cough purulent sputum with evidence of lung abscess on CT angiogram question of possible aspiration etiology and will need to cover for the polymicrobial wayne associated this infection. 2patient is status post IR drainage of this abscess and placement of the chest tube, 08/25/2021 and status post alteplase instillations times x [address] surgery 3- pleural fluid cultures currently growing alpha hemolytic Streptococcus, and blood cultures are negative 4patient has shown clinical improvement, fever resolved white count is trending down, patient to continue with Unasyn 3 g every 6 hours and monitor clinical course closely Time with Patient: Less than 30
[2021-08-30] MEDS: SYMBICORT 160-4.5 MCG INHALER INHALATION SCH ×2 (08:20→20:01)
[2021-08-30] MEDS: hydrOXYzine HCL 25 MG TAB PO SCH ×3 (08:42→21:17)
[2021-08-30] MEDS: DIVALPROEX 500 MG TABLET.DR PO SCH ×3 (08:42→21:17)
[2021-08-30] MEDS: FLUoxetine HCL 20 MG CAP PO SCH (08:42)
[2021-08-30] MEDS: DIVALPROEX SPRINKLE 125 MG CAP.SPRINK PO SCH ×3 (08:42→21:17)
--- NOTE | 2021-08-30 09:02 | XR ---
EXAMINATION TYPE: XR chest 1V portable DATE OF EXAM: 08/30/2021 Comparison: 08/28/2021 Clinical History: 26-year-old male Left lower lobe lung abscess Findings: Heart normal size. Patchy bibasilar opacities, right greater than left are similar. Left-sided pigtai l pleural catheter at the bases. Trace effusion on the right. Impression: Left basilar pleural drain remains in place. Ongoing patchy bibasilar opacities, right greater than l eft.
[2021-08-30] MEDS ORDERED: ALTEPLASE 10 MG in SODIUM CHLORIDE 0.9% 50 ML IRRIGATION ONE (10:30)
[2021-08-30] MEDS ORDERED: DORNASE ALFA 5 MG in SODIUM CHLORIDE 0.9% 50 ML IRRIGATION ONE (10:30)
--- NOTE | 2021-08-30 10:48 | P.PN ---
Subjective Progress Note Date: 08/30/21 Hospital course: Patient is a 26-year-old male with prior history of polysubstance abuse sober for 4 months, asthma, and epilepsy who presented to the ER with complaints of cough and foul-smelling sputum. In the ER he underwent an extensive evaluation. Initial vital signs were within normal limits. However he then spiked a fever of 101. Laboratory analysis demonstrated a white blood cell count of 16.5, hemoglobin 9.8, d-dimer 1.5, potassium 3.4. COVID-19 testing was negative. Chest x-ray showed a large area of airspace consolidation in the left lower lobe. CT of the chest showed a large complex fluid collection in the left lower hemithorax likely related to large lung abscess. Patient was started on IV fluids and Unasyn. He was admitted for further monitoring. Pulmonary was consulted. He was seen by infectious disease who recommended continuing Unasyn. He underwent IR guided chest tube placement for pulmonary abscess on 08/25. He was seen by cardiothoracic surgery. They instilled TPA into his chest tube. Pleural fluid cultures positive for Alpha Hemolytic Streptococcus. Computed tomography scan completed 08/29/21 revealing persistent left lower lobe sit consolidation with air bronchogram within, slightly improved compared to the pre vious computed tomography scan along with persistent bilateral pulmonary areas of groundglass opacities and pulmonary consolidation increased in density today compared to previous computed tomography scan possibly representing extensive pulmonary infection, septic emboli cannot be excluded. Physical examination: Patient is seen and fully evaluated at bedside this morning. Patient reports he is feeling great and denies having any complaints at this time including shortness of breath, chest pain, or cough and reports back pain is controlled for the most part. Cardiothoracic surgery planing to instill fourth dose of TPA into chest tube later today. Chest tube/pigtail catheter remains in place to left thoracic region of back and connected to suction. Continue to encourage patient to use incentive spirometry 10-15 times hourly while awake. Pleural cultures positive for Alpha Hemolytic Streptococcus, patient to continue IV antibiotic with Unasyn as recommended by infectious disease. General: non toxic, no distress, appears at stated age Derm: warm, dry Head: atraumatic, normocephalic, symmetric Eyes: EOMI, no lid lag, anicteric sclera Mouth: no lip lesion, mucus membranes moist Cardiovascular: S1S2 reg, no murmur, positive posterior tibial pulse bilateral, Lungs: CTA bilateral, no rhonchi, no rales , no accessory muscle use. Chest tube in place left thoracic region of back Abdominal: soft, nontender to palpation, no guarding, no appreciable organomegaly Ext: no gross muscle atrophy, no edema, no contractures Neuro: CN II-XI grossly intact, no focal neuro deficits Psych: Alert, oriented, appropriate affect Assessment and plan of care: Left lung abscess with sepsis status post pigtail catheter insertion 08/25/21 and TPA X 3, fourth dose ordered for later today -Pulmonology following, appreciate further recommendations -Infectious disease following, appreciate further recommendations -Continue with IV antibiotic: Unasyn pending further culture results and/or further recommendations from infectious disease -CT surgery following, appreciate recommendations -Pleural fluid cultures positive for Alpha Hemolytic Streptococcus -IV fluids Discontinued as patient is tolerating oral intake. -Continue pain medication regimen, Toradol 15 mg IVP every 6 hours -Patient report negative HIV and Hep C testing 2 weeks ago. Iron deficiency anemia Anemia -Iron 17, TIBC 154, iron percent saturation 10.71 and ferritin 110.0. -Hemoglobin stable at 8.7 -Continue ferrous sulfate 325 mg daily -Follow CBC History of opiate dependency -In remission on Suboxone Seizure disorder -Depakote -Seizure precautions Asthma without exacerbation -Bronchodilators when necessary and scheduled CODE STATUS full code DVT prophylaxis: Heparin Discussed with: Patient and RN Anticipated discharge: Pending clinical course Anticipated discharge place: Home A total of 33 minutes was spent on the care of this complex patient more than 50% of the time was spent in counseling and care coordination. I reviewed the documentation as provided by the GEOFF above, who is the original author of this note. I agree with the documented assessment and plan, with the following changes: none Objective - Vital Signs Vital signs: Vital Signs Temp 97.9 F 08/30/21 02:00 Pulse 69 08/30/21 02:00 Resp 14 08/30/21 02:00 BP 97/49 08/30/21 02:00 Pulse Ox 95 08/30/21 02:00 FiO2 Intake & Output 08/29/21 08/30/21 08/30/21 18:59 06:59 18:59 Intake Total 1080 400 Balance 1080 400 Intake: Intake, IV Titration 400 Amount Ampicillin-Sulbactam 3 gm 400 In Sodium Chloride 0.9% 100 ml @ 200 mls/hr IVPB Q6H [facility] Rx#:[id number] Oral 1080 Other: Voiding Method Toilet Toilet # Voids 3 - Labs CBC & Chem 7: 08/29/21 05:07 08/29/21 05:07 Labs: Abnormal Lab Results - Last 24 Hours (Table) 08/29/21 08/29/21 Range/Units 05:07 05:07 WBC 13.60 H (4.50-10.00) X 10*3/uL RBC 3.49 L (4.40-5.60) X 10*6/uL Hgb 8.9 L (13.0-17.0) g/dL Hct 29.6 L (39.6-50.0) % MCH 25.5 L (27.0-32.0) pg MCHC 30.1 L (32.0-37.0) g/dL MPV 9.4 L (9.5-12.2) fL BUN 6.4 L (9.0-27.0) mg/dL BUN/Creatinine Ratio 9.14 L (12.00-20.00) Ratio Calcium 8.2 L (8.7-10.3) mg/dL Total Bilirubin <0.15 L (0.30-1.20) mg/dL Total Protein 5.4 L (6.2-8.2) g/dL Albumin 2.2 L (3.8-4.9) g/dL Albumin/Globulin Ratio 0.69 L (1.60-3.17) g/dL Microbiology - Last 24 Hours (Table) 08/24/21 00:55 Blood Culture - Final Blood No Growth after 144 hours 08/24/21 00:40 Blood Culture - Final Blood No Growth after 144 hours 08/25/21 12:00 Gram Stain - Final Pleural Fluid Body Fluid Culture - Final Alpha Hemolytic Streptococcus
[2021-08-30] MEDS: FERROUS SULFATE 325 MG TAB PO SCH (12:18)
--- NOTE | 2021-08-30 12:28 | P.PN ---
Subjective Progress Note Date: 08/30/21 Principal diagnosis: left lung abscess 76-year-old male patient with a lung abscess and the patient is supposed to undergo an pigtail catheter insertion and drainage of a left lung abscess by interventional radiology. The patient is clinically doing well. No new complaints. His white cell count today is at her 18.1 and the patient's pro calcitonin level was at 0.27. He is hemodynamically stable. He remains on IV antibiotics and he was seen by infectious disease and he was kept on IV Unasyn 10 2021, the patient has no complaints. The pigtail catheter was inserted ye sterday and the patient had purulent material aspirated from the right lung. I coordinated the care with the cardiothoracic team. I was in favor of injecting it with alteplase and after the instillation, total of 170 mL of purulent material came out of the chest tube. Following the instillation, the patient had some increased cough and congestion and some reactions during which he also became febrile with a temperature of 101. Subsequently all of the symptoms improved. Another dose of alteplase was given today without any reactions. He is resting comfortably in bed. Repeat chest x-ray shows interval resolution of the lung abscess seen earlier. Cultures still pending for now. The patient remains on the same antibiotics for now. Electrolytes are normal and the pro- calcitonin level is at 0.27. 08/27/2021, patient is being seen for a follow-up. The patient is resting comfortably in bed. Pigtail catheter in place. The patient will receive 2 alteplase treatment and a total of 200 mL of fluid brownish improvement was aspirated from the left lung over the past 24 hours. Note that a follow-up CAT scan of the chest was also done and showed some groundglass changes on the right and some areas of groundglass changes in the left. Nevertheless, the right lung abscess had decreased in size and there is persistent consolidation of the left lower lobe. The patient remains on IV Unasyn. Cultures are still negative for now. Note that the material to drain from the lung was foul-smelling and tenacious and purulent. He is on room air oxygen. The white cell count is 16.3 with hemoglobin of 8.7. Electrodes are all within normal limits. Serum iron was low at 17 and the Pronestyl level was at 0.27. No altered mentation. 08/28/2021, the patient is being seen for a follow-up a chest x-ray findings are essentially stable. Output from the pigtail catheter drop and the patient was given another alteplase treatment today. The patient otherwise doing well. No specific complaints. He remains on room air oxygen. Using incentive spirometer and the patient remains on Unasyn. Cultures are all negative thus far. Output from the PICC line for yesterday was only 70 mL of thick brownish material. on 08/29/2021 patient seen in follow-up on medical surgical floor. He is resting comfortably in bed, he states he is feeling better, does not appear to be in any acute distress, denies chest pain, denies any hemoptysis, room air pulse ox is 95%. patient had another Dorse instillation into the left-side pigtail catheter. Pleural fluid cultures were positive for alpha hemolytic streptococcus. Patient remains on Unasyn, ID service is following. His had no acute events overnight. On 08/30/2021 patient seen in follow-up on medical surgical floor. He is resting comfortably in bed, in no acute distress. Room air pulse ox is 95-98%, he is afebrile, breathing is nonlabored. Left-sided pleural chest drain in place, today's chest x-ray shows ongoing patchy bibasilar opacities, right greater than left. Patient received a dose of alteplase and dornase today. He has had no output from the chest tube over the last 24 hours. Today's labs are still pending. The vitals are stable, patient denies any worsening shortness of breath or cough. No hemoptysis, no chest discomfort. His pleural fluid cultures showed alphahemolytic streptococcus. ID service is following, patient remains on Unasyn Objective - Vital Signs Vital signs: Vital Signs Temp 98.0 F 08/30/21 08:00 Pulse 71 08/30/21 08:00 Resp 16 08/30/21 08:00 BP 101/59 08/30/21 08:00 Pulse Ox 95 08/30/21 08:00 FiO2 Intake & Output 08/29/21 08/30/21 08/30/21 18:59 06:59 18:59 Intake Total 1080 400 Balance 1080 400 Intake: Intake, IV Titration 400 Amount Ampicillin-Sulbactam 3 gm 400 In Sodium Chloride 0.9% 100 ml @ 200 mls/hr IVPB Q6H [facility] Rx#:[id number] Oral 1080 Other: Voiding Method Toilet Toilet Toilet # Voids 3 - Exam GENERAL EXAM: Alert, active, comfortable in no apparent distress. HEAD: Normocephalic/atraumatic. EYES: Normal reaction of pupils, equal size. Conjunctiva pink, sclera white. NOSE: Clear with pink turbinates. THROAT: No erythema or exudates. NECK: No masses, no JVD, no thyroid enlargement, no adenopathy. CHEST: No chest wall deformity. Symmetrical expansion. left posterior pigtail catheter in place, connected to the pleuravac LUNGS: Equal air entry with no crackles, wheeze, rhonchi or dullness. CVS: Regular rate and rhythm, normal S1 and S2, no gallops, no murmurs, no rubs ABDOMEN: Soft, nontender. No hepatosplenomegaly, normal bowel sounds, no gua rding or rigidity. EXTREMITIES: No clubbing, no edema, no cyanosis, 2+ pulses and upper and lower extremities. MUSCULOSKELETAL: Muscle strength and tone normal. SPINE: No scoliosis or deformity SKIN: No rashes CENTRAL NERVOUS SYSTEM: Alert and oriented -3. No focal deficits, tone is normal in all 4 extremities. PSYCHIATRIC: Alert and oriented -3. Appropriate affect. Intact judgment and insight. - Labs CBC & Chem 7: 08/29/21 05:07 08/29/21 05:07 Labs: Microbiology - Last 24 Hours (Table) 08/24/21 00:55 Blood Culture - Final Blood No Growth after 144 hours 08/24/21 00:40 Blood Culture - Final Blood No Growth after 144 hours 08/25/21 12:00 Gram Stain - Final Pleural Fluid Body Fluid Culture - Final Alpha Hemolytic Streptococcus Assessment and Plan Plan: assessment: #1. Lung abscess occupying the left lower lobe. This is a large complex stru cture measuring around 10 cm in size and it includes fluid, air and agrees. the patient underwent a percutaneous pigtail catheter insertion with purulent material being aspirated from the left lung. The chest x-ray showing improvement in the abscess in the left lung. the patient had to alteplase treatments with drainage in the order of 170 mL of purulent material from the left lung. He is afebrile. He is on IV Unasyn. A repeat CAT scan of the chest was done that showed diminution of the left lung abscess. There is persistent consolidation of left lower lobe. There are areas of ground glass changes developing bilaterally. Could be in acute lung injury or reaction to alteplase treatment. Since the alteplase treatment 2, the patient has a more than 200 mL of purulent putrid material from the left lung. Remains on IV Unasyn. Hemodynamically stable. #2. History of seizure disorder #3. History of polysubstance abuse #4. Leukocytosis secondary to lung abscess, improving #5. History of bronchial asthma plan: Today's chest x-ray has been reviewed showing persistent ongoing patchy bibasilar opacities Patient received another dose of alteplase and dornase There really has not been significant drainage at all of the last 24 hours from his chest tube If the pigtail chest tube continues to have minimal or no drainage, we will consider removing the pigtail Patient will need a PICC line, and ID service is planning on sending the patient [facility] for [facility] antibiotics with the PICC line in place I have personally seen and examined the patient, performed the documentation and the assessment and plan as written. Number of minutes spent on the visit: [10] Time with Patient: Less than 30
[2021-08-30] MEDS: ACETAMINOPHEN TAB 325 MG TAB PO PRN (14:12)
--- NOTE | 2021-08-30 14:12 | P.PN ---
Subjective Progress Note Date: 08/30/21 Principal diagnosis: Left lung abscess with persistent cough and foul-smelling tenacious green tinged sputum. Past medical history significant for epilepsy with his last seizure in May 2021, asthma, polysubstance abuse in which he reports that he has been in rehab for since April 2021. He also has a history of chronic ongoing tobacco abuse. The patient was seen and examined this morning 08/30/2021 at his bedside on the fourth floor medical surgical unit. Currently he is laying in bed, is awake, alert, oriented 3 and is in no acute apparent distress. Denies any complaints of pain or shortness of breath at this time. Reports he continues to feel better on a daily basis. Pleural fluid culture from 08/25/2021 showed alpha hemolytic streptococcal coccus and he remains on Unasyn for antibiotic coverage managed by infectious disease. Left chest pigtail catheter remains in place to low continuous wall suction -20 cm H2O. No air leak is present. No drainage wi thin the last 24 hours. Oxygen saturations are 98% on room air and he is achieving 2500 mL on his incentive spirometry with encouragement. The patient reports he has been up ambulating in the cardiac stepdown unit hallway independently. His T-max temperature in the last 24 hours is 99.1F. Objective - Vital Signs Vital signs: Vital Signs Temp 98.0 F 08/30/21 08:00 Pulse 71 08/30/21 08:00 Resp 16 08/30/21 08:00 BP 101/59 08/30/21 08:00 Pulse Ox 95 08/30/21 08:00 FiO2 Intake & Output 08/29/21 08/30/21 08/30/21 18:59 06:59 18:59 Intake Total 1080 400 Balance 1080 400 Intake: Intake, IV Titration 400 Amount Ampicillin-Sulbactam 3 gm 400 In Sodium Chloride 0.9% 100 ml @ 200 mls/hr IVPB Q6H [facility] Rx#:[id number] Oral 1080 Other: Voiding Method Toilet Toilet Toilet # Voids 3 - Exam CONSTITUTIONAL: Lying in bed on the fourth floor medical surgical unit, appears comfortable, cooperative, no apparent acute distress. HEENT: Neck is supple, no JVD, no lymphadenopathy. RESPIRATORY: Lungs sounds diminished to his left lower lobe, essentially clear to his right lobes. Respirations are symmetrical and nonlabored. Currently on room air with oxygen saturations 98%. Able to achieve 2500 mL on his incentive spirometry. Strong productive cough. Left chest pigtail catheter remains in place to low continuous wall suction -20 cm H2O. No air leak is present. No drainage in the last 24 hours. CARDIOVASCULAR: Regular rhythm and rate. S1 and S2 present, negative for S3, gallop or murmur. Palpable peripheral pulses bilaterally. No calf pain or tenderness noted. GASTROINTESTINAL: Abdomen soft, nontender, nondistended. Active bowel sounds present 4 quadrants. Tolerating diet. No guarding or rigidity. GENITOURINARY: Continues to void. INTEGUMENTARY: Skin is warm and dry with no evidence of clubbing or cyanosis. Left chest pigtail catheter dressing is clean, dry and intact. NEUROLOGIC: Cranial nerves II through XII intact. No focal deficits. MUSKULOSKELETAL: Able to move all extremities, strength equal bilaterally. PSYCHIATRIC: Alert and oriented to person place and time, appropriate affect, intact judgment and insight. - Allied health notes Allied health notes reviewed: nursing - Labs CBC & Chem 7: 08/29/21 05:07 08/29/21 05:07 Labs: Microbiology - Last 24 Hours (Table) 08/24/21 00:55 Blood Culture - Final Blood No Growth after 144 hours 08/24/21 00:40 Blood Culture - Final Blood No Growth after 144 hours 08/25/21 12:00 Gram Stain - Final Pleural Fluid Body Fluid Culture - Final Alpha Hemolytic Streptococcus - Imaging and Cardiology Chest x-ray: report reviewed, image reviewed Assessment and Plan Assessment: 1. Left lower lobe lung abscess, status post placement of left pleural pigtail catheter by interventional radiology, with alteplase/dornase instilled 3, pleural fluid culture from 08/25/2021 shows all for hemolytic Streptococcus 2. Leukocytosis, secondary to left lower lobe lung abscess 3. Persistent cough and foul-smelling tenacious green tinged sputum, secondary to above 4 History of asthma 5. History of seizure disorder, states his last seizure was in May 2021 6. History of polysubstance abuse, currently in rehab since April 2021 7. Chronic ongoing tobacco abuse Plan: 1. Continue left chest pigtail catheter to low continuous wall suction -20 cm H2O. we will instill a dose of alteplase/dornase into his left chest pigtail catheter day which will be his fourth total dose. We will clamp the left pigtail catheter for 1 hour, encouraged the patient to turn every 15 minutes, supine, left side, right side and prone as tolerated. After 1 hour we will unclamp the left chest pigtail catheter in place back to low continuous wall suction -20 cm H2O. 2. Continue to auto club travel counselor and reinforce with the patient the importance of smoking cessation and cessation of polysubstance abuse. 3. Continue to monitor daily chest x-rays. 4. Pain control per current when necessary orders. 5. Continue to follow sputum cultures and cytology results. Pleural fluid culture shows alpha hemolytic streptococcus. He remains on Unasyn for antibiotic coverage which is being managed by infectious disease. 6. Encourage use of his incentive spirometry 10 times every hour while awake. 7. Antibiotic management per infectious disease recommendations. 8. Increase activity as tolerated. Out of bed for all meals. May disconnect chest tube from suction when ambulating, return back to low continuous suction after ambulation. 9. A transthoracic 2-D echocardiogram has been ordered to rule out vegetation. 10. More recommendations to follow based on patient's clinical course. Time with Patient: Greater than 30
--- NOTE | 2021-08-30 19:02 | CA ---
Transthoracic Echo Report Name: José Duckworth Age: 26 Gender: M : 1995 Exam Date: 08/30/2021 11:45 Exam Location: [facility] Ht (in): 62 Wt (lb): 190 Ordering Physician: Tomas Schwartz Attending/Referring Phys: Efren MENENDEZ Disability Advocate Debi Santiago, JAYDON Procedure CPT: Indications: Rule out vegetation Cardiac Hx: Lung Abcess Technical Quality: Good Contrast 1: N/A Total Dose (mL): Contrast 2: Total Dose (mL): MEASUREMENTS (Male / Female) Normal Values 2D ECHO LV Diastolic Diameter PLAX 5.1 cm 4.2 - 5.9 / 3.9 - 5.3 cm LV Systolic Diameter PLAX 4.0 cm IVS Diastolic Thickness 0.9 cm 0.6 - 1.0 / 0.6 - 0.9 cm LVPW Diastolic Thickness 2.0 cm 0.6 - 1.0 / 0.6 - 0.9 cm LV Relative Wall Thickness 0.6 RV Internal Dim ED PLAX 2.4 cm LA Systolic Diameter LX 4.0 cm 3.0 - 4.0 / 2.7 - 3.8 cm M-MODE Aortic Root Diameter MM 3.5 cm LA Systolic Diameter MM 4.1 cm LA Ao Ratio MM 1.2 MV E Point Septal Separation 0.4 cm AV Cusp Separation MM 2.1 cm DOPPLER MV E' Velocity 12.5 cm/s TR Peak Velocity 201.2 cm/s TR Peak Gradient 16.2 mmHg Right Ventricular Systolic Press 21.2 mmHg FINDINGS Left Ventricle Normal left ventricular size, wall thickness, systolic function with no obvious regional wall motion abnormalities. The ejection fraction is visually estimated at 55-60 %. Right Ventricle The right ventricle is normal in size and function. Right Atrium The right atrium is normal in size. Left Atrium The left atrium is normal in size. Mitral Valve Structurally normal mitral valve without significant stenosis or prolapse. There is mild mitral regurgitation. Aortic Valve Structurally normal aortic valve without significant sclerosis or stenosis. There is no aortic regurgitation. Tricuspid Valve Structurally normal tricuspid valve without significant stenosis. Pulmonary artery systolic pressure is normal. Pulmonic Valve Structurally normal pulmonic valve without significant stenosis. There is no pulmonic regurgitation. Pericardium Normal pericardium without effusion. Aorta Normal aortic root dimension. CONCLUSIONS Normal LV size and systolic function. No significant abnormality on the Doppler exam. No evidence of any regurgitation. No pericardial effusion Previewed by: Dr. Maryann Chahal MD (Electronically Signed) Final Date: 30 August 2021 19:01
[2021-08-30] MEDS: OLANZapine 10 MG TAB PO SCH (21:17)
--- NOTE | 2021-08-30 22:59 | P.PN ---
Subjective Progress Note Date: 08/30/21 Principal diagnosis: Left lung abscess Patient is a 26-year-old male presenting to the hospital with not feeling with left-sided chest pain cough with foul-smelling purulent sputum and this patient did have evidence of left-sided lung abscess status post chest tube placement by interventional radiology on 08/25/2021. On today's evaluation that is 08/30/2021, the patient remains to be afebrile, the patient is breathing comfortably on room air, the patient left-sided chest pain has decreased in intensity, the patient cough has decreased intensity , the patient denies nausea no vomiting no abdominal pain or diarrhea Objective - Vital Signs Vital signs: Vital Signs Temp 98.0 F 08/30/21 08:00 Pulse 71 08/30/21 08:00 Resp 16 08/30/21 08:00 BP 101/59 08/30/21 08:00 Pulse Ox 95 08/30/21 08:00 FiO2 Intake & Output 08/29/21 08/30/21 08/30/21 18:59 06:59 18:59 Intake Total 1080 400 Balance 1080 400 Intake: Intake, IV Titration 400 Amount Ampicillin-Sulbactam 3 gm 400 In Sodium Chloride 0.9% 100 ml @ 200 mls/hr IVPB Q6H [facility] Rx#:[id number] Oral 1080 Other: Voiding Method Toilet Toilet Toilet # Voids 3 - Exam GENERAL DESCRIPTION: Young male lying in bed in no distress RESPIRATORY SYSTEM: Unlabored breathing , decreased breath sounds at bases, Left-sided Chest tube HEART: S1 S2 regular rate and rhythm , ABDOMEN: Soft , no tenderness EXTREMITIES: No edema feet - Labs CBC & Chem 7: 08/29/21 05:07 08/29/21 05:07 Labs: Microbiology - Last 24 Hours (Table) 08/24/21 00:55 Blood Culture - Final Blood No Growth after 144 hours 08/24/21 00:40 Blood Culture - Final Blood No Growth after 144 hours 08/25/21 12:00 Gram Stain - Final Pleural Fluid Body Fluid Culture - Final Alpha Hemolytic Streptococcus Assessment and Plan (1) Lung abscess Current Visit: Yes Status: Acute Code(s): J85.2 - ABSCESS OF LUNG WITHOUT PNEUMONIA SNOMED Code(s): 99099897 Plan: 1patient presented to hospital with symptoms with on for more than a month with left-sided chest pain cough purulent sputum with evidence of lung abscess on CT angiogram question of possible aspiration etiology and will need to cover for the polymicrobial wayne associated this infection. 2patient is status post IR drainage of this abscess and placement of the chest tube, 08/25/2021 and status post alteplase instillations times x [address] surgery 3- pleural fluid cultures currently growing alpha hemolytic Streptococcus, and blood cultures are negative 4patient has shown clinical improvement, patient was advised PICC line and outpatient IV Unasyn at least 2 weeks however the patient is refusing to go to inpatient rehab patient to have a history of IV drug use however mention he has been clean for more than 6 months and has no intention to use PICC line patient seemed to be awake alert oriented 3 and make his decision, PICC line will be placed and plan for outpatient IV Rocephin 2 g daily along with oral Flagyl on discharge for now continue with the Unasyn Time with Patient: Less than 30
[2021-08-31] MEDS: AMPICILLIN-SULBACTAM 3 GM in SODIUM CHLORIDE 0.9% 100 ML IVPB SCH ×4 (02:51→20:39)
--- NOTE | 2021-08-31 06:35 | XR ---
EXAMINATION TYPE: XR chest 2V DATE OF EXAM: 08/31/2021 COMPARISON: Chest x-ray from yesterday and older studies HISTORY: Left lung abscess. TECHNIQUE: Frontal and lateral views of the chest are obtained. FINDINGS: There is stable left sided posterior basilar pleural pigtail drainage catheter. Persistent right mid to lower lung increased opacity. No pneumothorax seen bilaterally. Cardiac silhouette size stable and within normal limits. Osseous structures are intact. IMPRESSION: Stable left posterior basilar pleural drainage catheter. Persistent right mid to lower l william acute infiltrates. No significant change from one day earlier.
[2021-08-31] MEDS: SYMBICORT 160-4.5 MCG INHALER INHALATION SCH ×2 (08:17→19:36)
[2021-08-31] MEDS: FLUoxetine HCL 20 MG CAP PO SCH (08:36)
[2021-08-31] MEDS: hydrOXYzine HCL 25 MG TAB PO SCH ×3 (08:36→20:39)
[2021-08-31] MEDS: DIVALPROEX SPRINKLE 125 MG CAP.SPRINK PO SCH ×3 (08:36→20:39)
[2021-08-31] MEDS: FERROUS SULFATE 325 MG TAB PO SCH (08:36)
[2021-08-31] MEDS: DIVALPROEX 500 MG TABLET.DR PO SCH ×3 (08:36→20:39)
[2021-08-31] MEDS: HEPARIN SODIUM,PORCINE/PF 5,000 UNIT/0.5 ML SYRINGE SQ SCH ×2 (08:37→16:03)
[2021-08-31 09:31] VITALS: BMI 26.4
--- NOTE | 2021-08-31 09:52 | P.PN ---
Subjective Progress Note Date: 08/31/21 Principal diagnosis: Left lung abscess with persistent cough and foul-smelling tenacious green tinged sputum. Past medical history significant for epilepsy with his last seizure in May 2021, asthma, polysubstance abuse in which he reports that he has been in rehab for since April 2021. He also has a history of chronic ongoing tobacco abuse. The patient was seen and examined this morning 08/31/2021 at his bedside on the fourth floor medical surgical unit. Currently he is sitting up in bed, is awake, alert, oriented 3 and is in no acute apparent distress. He denies any complaints of pain, shortness of breath, nausea, vomiting and reports that his cough has significantly improved. Oxygen saturations are 98% on room air and he is achieving 2500 mL on his incentive spirometry with encouragement. He was instilled with a fourth total dose of alteplase/dornase yesterday per his left chest pigtail catheter with only 40 mL of output in the last 24 hours. He has b een afebrile the last 24 hours in he remains on Unasyn for IV antibiotic coverage which is managed by infectious disease. Pleural fluid culture from 08/25/2021 did show alphahemolytic streptococcus. Plan is for PICC line placement per infectious disease recommendations for outpatient antibiotic ma nagement. The patient reports he has been up ambulating in the fourth floor medical surgical unit hallway independently. Objective - Vital Signs Vital signs: Vital Signs Temp 98.0 F 08/31/21 08:00 Pulse 79 08/31/21 08:00 Resp 16 08/31/21 08:00 BP 102/68 08/31/21 08:00 Pulse Ox 95 08/31/21 08:00 FiO2 Intake & Output 08/30/21 08/31/21 08/31/21 18:59 06:59 18:59 Intake Total 200 Output Total 1230 Balance -1030 Weight 86.183 kg Intake: Intake, IV Titration 200 Amount Ampicillin-Sulbactam 3 gm 200 In Sodium Chloride 0.9% 100 ml @ 200 mls/hr IVPB Q6H [facility] Rx#:[id number] Output: Chest Tube Drainage 30 Chest Tube Left 30 Urine 1200 Other: Voiding Method Toilet Toilet # Voids 4 - Exam CONSTITUTIONAL: Lying in bed on the fourth floor medical surgical unit, appears comfortable, cooperative, no apparent acute distress. HEENT: Neck is supple, no JVD, no lymphadenopathy. RESPIRATORY: Lungs sounds diminished to his left lower lobe, essentially clear to his right lobes. Respirations are symmetrical and nonlabored. Currently on room air with oxygen saturations 98%. Able to achieve 2500 mL on his incentive spirometry. Strong cough. Left chest pigtail catheter remains in place to low continuous wall suction -20 cm H2O. No air leak is present. 30-40 mL of drainage in the last 24 hours. CARDIOVASCULAR: Regular rhythm and rate. S1 and S2 present, negative for S3, gallop or murmur. Palpable peripheral pulses bilaterally. No calf pain or tenderness noted. GASTROINTESTINAL: Abdomen soft, nontender, nondistended. Active bowel sounds present 4 quadrants. Tolerating diet. No guarding or rigidity. GENITOURINARY: Continues to void. INTEGUMENTARY: Skin is warm and dry with no evidence of clubbing or cyanosis. Left chest pigtail catheter dressing is clean, dry and intact. NEUROLOGIC: Cranial nerves II through XII intact. No focal deficits. MUSKULOSKELETAL: Able to move all extremities, strength equal bilaterally. PSYCHIATRIC: Alert and oriented to person place and time, appropriate affect, intact judgment and insight. - Allied health notes Allied health notes reviewed: nursing - Labs CBC & Chem 7: 08/29/21 05:07 08/29/21 05:07 Labs: Microbiology - Last 24 Hours (Table) 08/25/21 12:00 Anaerobic Culture - Preliminary Pleural Fluid - Imaging and Cardiology Chest x-ray: report reviewed, image reviewed Assessment and Plan Assessment: 1. Left lower lobe lung abscess, status post placement of left pleural pigtail catheter by interventional radiology, with alteplase/dornase instilled 3, pleural fluid culture from 08/25/2021 shows all for hemolytic Streptococcus 2. Leukocytosis, secondary to left lower lobe lung abscess 3. Persistent cough and foul-smelling tenacious green tinged sputum, secondary to above, cough has improved 4 History of asthma 5. History of seizure disorder, states his last seizure was in May 2021 6. History of polysubstance abuse, currently in rehab since April 2021 7. Chronic ongoing tobacco abuse Plan: 1. Continue left chest pigtail catheter to low continuous wall suction -20 cm H2O. No alteplase/dornase instillation planned for today. The patient has clinically improved. No surgical intervention is warranted at this time. 2. Continue to correctional counselor and reinforce with the patient the importance of smoking cessation and cessation of polysubstance abuse. 3. Continue to monitor daily chest x-rays. 4. Pain control per current when necessary orders. 5. Pleural fluid culture shows alpha hemolytic streptococcus. Pleural fluid cytology results show abundant acute and chronic inflammation with inflammatory debris, compatible with abscess, negative for malignancy. He remains on Unasyn for antibiotic coverage which is being managed by infectious disease. Plan is for PICC line placement per infectious disease recommendations. 6. Encourage use of his incentive spirometry 10 times every hour while awake. 7. Increase activity as tolerated. Out of bed for all meals. May disconnect chest tube from suction when ambulating, return back to low continuous suction after ambulation. 8. More recommendations to follow based on patient's clinical course. Time with Patient: Greater than 30
--- NOTE | 2021-08-31 11:54 | P.PN ---
Subjective Progress Note Date: 08/31/21 Principal diagnosis: left lung abscess 76-year-old male patient with a lung abscess and the patient is supposed to undergo an pigtail catheter insertion and drainage of a left lung abscess by interventional radiology. The patient is clinically doing well. No new complaints. His white cell count today is at her 18.1 and the patient's pro calcitonin level was at 0.27. He is hemodynamically stable. He remains on IV antibiotics and he was seen by infectious disease and he was kept on IV Unasyn 10 2021, the patient has no complaints. The pigtail catheter was inserted ye sterday and the patient had purulent material aspirated from the right lung. I coordinated the care with the cardiothoracic team. I was in favor of injecting it with alteplase and after the instillation, total of 170 mL of purulent material came out of the chest tube. Following the instillation, the patient had some increased cough and congestion and some reactions during which he also became febrile with a temperature of 101. Subsequently all of the symptoms improved. Another dose of alteplase was given today without any reactions. He is resting comfortably in bed. Repeat chest x-ray shows interval resolution of the lung abscess seen earlier. Cultures still pending for now. The patient remains on the same antibiotics for now. Electrolytes are normal and the pro- calcitonin level is at 0.27. 08/27/2021, patient is being seen for a follow-up. The patient is resting comfortably in bed. Pigtail catheter in place. The patient will receive 2 alteplase treatment and a total of 200 mL of fluid brownish improvement was aspirated from the left lung over the past 24 hours. Note that a follow-up CAT scan of the chest was also done and showed some groundglass changes on the right and some areas of groundglass changes in the left. Nevertheless, the right lung abscess had decreased in size and there is persistent consolidation of the left lower lobe. The patient remains on IV Unasyn. Cultures are still negative for now. Note that the material to drain from the lung was foul-smelling and tenacious and purulent. He is on room air oxygen. The white cell count is 16.3 with hemoglobin of 8.7. Electrodes are all within normal limits. Serum iron was low at 17 and the Pronestyl level was at 0.27. No altered mentation. 08/28/2021, the patient is being seen for a follow-up a chest x-ray findings are essentially stable. Output from the pigtail catheter drop and the patient was given another alteplase treatment today. The patient otherwise doing well. No specific complaints. He remains on room air oxygen. Using incentive spirometer and the patient remains on Unasyn. Cultures are all negative thus far. Output from the PICC line for yesterday was only 70 mL of thick brownish material. on 08/29/2021 patient seen in follow-up on medical surgical floor. He is resting comfortably in bed, he states he is feeling better, does not appear to be in any acute distress, denies chest pain, denies any hemoptysis, room air pulse ox is 95%. patient had another Dorse instillation into the left-side pigtail catheter. Pleural fluid cultures were positive for alpha hemolytic streptococcus. Patient remains on Unasyn, ID service is following. His had no acute events overnight. On 08/30/2021 patient seen in follow-up on medical surgical floor. He is resting comfortably in bed, in no acute distress. Room air pulse ox is 95-98%, he is afebrile, breathing is nonlabored. Left-sided pleural chest drain in place, today's chest x-ray shows ongoing patchy bibasilar opacities, right greater than left. Patient received a dose of alteplase and dornase today. He has had no output from the chest tube over the last 24 hours. Today's labs are still pending. The vitals are stable, patient denies any worsening shortness of breath or cough. No hemoptysis, no chest discomfort. His pleural fluid cultures showed alphahemolytic streptococcus. ID service is following, patient remains on Unasyn On 08/31/2021 patient seen in follow-up on medical surgical floor. He is resting comfortably in bed, does not appear to be any acute distress, he remains on Unasyn for antibiotic coverage, his pleural fluid cultures are positive for alpha hemolytic streptococcus, blood cultures were negative. His left-sided pigtail chest tube has only produced 40 mL of pleural fluid output in last 24 hours, chest x-ray showing a stable left posterior basilar pleural drainage, and persistent right mid to lower lung acute infiltrate. he has received on a dose of alteplase and dornase with minimal drainage. CT surgery is following. Vital signs have been stable, no fever or chills, no chest pain, no hemoptysis. ID service is following, and patient will likely need a PICC line for IV antibiotic treatment after discharge. Objective - Vital Signs Vital signs: Vital Signs Temp 98.0 F 08/31/21 08:00 Pulse 79 08/31/21 08:43 Resp 16 08/31/21 08:43 BP 102/68 08/31/21 08:00 Pulse Ox 95 08/31/21 08:00 FiO2 Intake & Output 08/30/21 08/31/21 08/31/21 18:59 06:59 18:59 Intake Total 200 Output Total 1230 Balance -1030 Weight 86.183 kg Intake: Intake, IV Titration 200 Amount Ampicillin-Sulbactam 3 gm 200 In Sodium Chloride 0.9% 100 ml @ 200 mls/hr IVPB Q6H [facility] Rx#:[id number] Output: Chest Tube Drainage 30 Chest Tube Left 30 Urine 1200 Other: Voiding Method Toilet Toilet Toilet # Voids 4 - Exam GENERAL EXAM: Alert, active, comfortable in no apparent distress. HEAD: Normocephalic/atraumatic. EYES: Normal reaction of pupils, equal size. Conjunctiva pink, sclera white. NOSE: Clear with pink turbinates. THROAT: No erythema or exudates. NECK: No masses, no JVD, no thyroid enlargement, no adenopathy. CHEST: No chest wall deformity. Symmetrical expansion. left posterior pigtail catheter in place, connected to the pleuravac LUNGS: Equal air entry with no crackles, wheeze, rhonchi or dullness. CVS: Regular rate and rhythm, normal S1 and S2, no gallops, no murmurs, no rubs ABDOMEN: Soft, nontender. No hepatosplenomegaly, normal bowel sounds, no guarding or rigidity. EXTREMITIES: No clubbing, no edema, no cyanosis, 2+ pulses and upper and lower extremities. MUSCULOSKELETAL: Muscle strength and tone normal. SPINE: No scoliosis or deformity SKIN: No rashes CENTRAL NERVOUS SYSTEM: Alert and oriented -3. No focal deficits, tone is normal in all 4 extremities. PSYCHIATRIC: Alert and oriented -3. Appropriate affect. Intact judgment and insight. - Labs CBC & Chem 7: 08/29/21 05:07 06/13/22 05:07 Labs: Microbiology - Last 24 Hours (Table) 08/25/21 12:00 Anaerobic Culture - Final Pleural Fluid Assessment and Plan Plan: assessment: #1. Lung abscess occupying the left lower lobe. This is a large complex structure measuring around 10 cm in size and it includes fluid, air and agrees. the patient underwent a percutaneous pigtail catheter insertion with purulent material being aspirated from the left lung. The chest x-ray showing improvement in the abscess in the left lung. the patient had to alteplase treatments with drainage in the order of 170 mL of purulent material from the left lung. He is afebrile. He is on IV Unasyn. A repeat CAT scan of the chest was done that showed diminution of the left lung abscess. There is persistent consolidation of left lower lobe. There are areas of ground glass changes developing bilaterally. Could be in acute lung injury or reaction to alteplase treatment. Since the alteplase treatment 2, the patient has a more than 200 mL of purulent putrid material from the left lung. Remains on IV Unasyn. Hemodynamically stable. #2. History of seizure disorder #3. History of polysubstance abuse #4. Leukocytosis secondary to lung abscess, improving #5. History of bronchial asthma plan: Clinically patient is breathing comfortably, no ascending dyspnea or hypoxia Vitals are stable, no fever or chills Today's chest x-ray has been reviewed showing persistent ongoing bibasilar opacities Despite another dose of alteplase and dornase yesterday patient has had minimal drainage from the chest tube Consider removing the pigtail catheter Antibiotics per ID service recommendations ID service is considering PICC line placement in possible snf facility for IV antibiotics They are concerned about patient using IV drugs through the PICC line However the patient states he would rather go home, and come to the hospital for IV antibiotic infusions Defer to ID service on the decision for post discharge antibiotics and arrrickey watkins Otherwise from pulmonary perspective if cleared by CT surgery he could be considered for discharge home, depending if CT surgery and ID service agree that pigtail catheter will be removed I have personally seen and examined the patient, performed the documentation and the assessment and plan as written. Number of minutes spent on the visit: [10] Time with Patient: Less than 30
[2021-08-31 12:44] LABS: Basophils # (M) 0 X 10*3/uL (0.00-0.10); HCT 31.9 % (39.6-50.0); HGB 9.5 g/dL (13.0-17.0); MCH 25.4 pg (27.0-32.0); MCHC 29.8 g/dL (32.0-37.0); MCV 85.3 fL (80.0-97.0); Mean Platelet Volume 9.4 fL (9.5-12.2); Metamyelocytes % 3 % (0-0); Monocytes # (M) 1.11 X 10*3/uL (0.20-1.00); Myelocytes % 5 % (0-0); NRBC Per 100 WBC 0 /100 WBCS (0.0-0.0); Neutrophils # (M) 7.78 X 10*3/uL (2.00-8.90); Neutrophils % (M) 56 %; Platelet Count 327 X 10*3/uL (140-440); RBC 3.74 X 10*6/uL (4.40-5.60); RBC Morphology NORMAL; RDW 13.8 % (11.5-14.5)
[2021-08-31] MEDS: ACETAMINOPHEN TAB 325 MG TAB PO PRN ×2 (13:31→20:40)
--- NOTE | 2021-08-31 14:48 | P.PN ---
Subjective Progress Note Date: 08/31/21 Hospital course: Patient is a 26-year-old male with prior history of polysubstance abuse sober for 4 months, asthma, and epilepsy who presented to the ER with complaints of cough and foul-smelling sputum. In the ER he underwent an extensive evaluation. Initial vital signs were within normal limits. However he then spiked a fever of 101. Laboratory analysis demonstrated a white blood cell count of 16.5, hemoglobin 9.8, d-dimer 1.5, potassium 3.4. COVID-19 testing was negative. Chest x-ray showed a large area of airspace consolidation in the left lower lobe. CT of the chest showed a large complex fluid collection in the left lower hemithorax likely related to large lung abscess. Patient was started on IV fluids and Unasyn. He was admitted for further monitoring. Pulmonary was consulted. He was seen by infectious disease who recommended continuing Unasyn. He underwent IR guided chest tube placement for pulmonary abscess on 08/25. He was seen by cardiothoracic surgery. They instilled TPA into his chest tube. Pleural fluid cultures positive for Alpha Hemolytic Streptococcus. Computed tomography scan completed 08/29/21 revealing persistent left lower lobe sit consolidation with air bronchogram within, slightly improved compared to the pre vious computed tomography scan along with persistent bilateral pulmonary areas of groundglass opacities and pulmonary consolidation increased in density today compared to previous computed tomography scan possibly representing extensive pulmonary infection, septic emboli cannot be excluded. Interval history: Patient is seen and fully evaluated at bedside this morning. Patient denies any chest pain or shortness of breath.. Chest tube/pigtail catheter remains in place to left thoracic region of back and connected to suction. Continue to encourage patient to use incentive spirometry 10-15 times hourly while awake. Pleural cultures positive for Alpha Hemolytic Streptococcus, patient to continue IV antibiotic with Unasyn as recommended by infectious disease. Physical examination: General: non toxic, no distress, appears at stated age Derm: warm, dry Head: atraumatic, normocephalic, symmetric Eyes: EOMI, no lid lag, anicteric sclera Mouth: no lip lesion, mucus membranes moist Cardiovascular: S1S2 reg, no murmur, positive posterior tibial pulse bilateral, Lungs: CTA bilateral, no rhonchi, no rales , no accessory muscle use. Chest tube in place left thoracic region of back Abdominal: soft, nontender to palpation, no guarding, no appreciable organomegaly Ext: no gross muscle atrophy, no edema, no contractures Neuro: CN II-XI grossly intact, no focal neuro deficits Psych: Alert, oriented, appropriate affect Assessment and plan of care: Left lung abscess with sepsis status post pigtail catheter insertion 08/25/21 and TPA X 4. -Pulmonology following, appreciate further recommendations -Infectious disease following, appreciate further recommendations -Continue with IV antibiotic: Unasyn pending further culture results and/or further recommendations from infectious disease -CT surgery following, appreciate recommendations -Pleural fluid cultures positive for Alpha Hemolytic Streptococcus -IV fluids Discontinued as patient is tolerating oral intake. -Continue pain medication regimen, Toradol 15 mg IVP every 6 hours -Patient report negative HIV and Hep C testing 2 weeks ago. Iron deficiency anemia Anemia -Iron 17, TIBC 154, iron percent saturation 10.71 and ferritin 110.0. -Hemoglobin stable at 8.7 -Continue ferrous sulfate 325 mg daily -Follow CBC History of opiate dependency -In remission on Suboxone Seizure disorder -Depakote -Seizure precautions Asthma without exacerbation -Bronchodilators when necessary and scheduled CODE STATUS full code DVT prophylaxis: Heparin Discussed with: Patient and RN Anticipated discharge: Pending clinical course Anticipated discharge place: Home A total of 33 minutes was spent on the care of this complex patient more than 50% of the time was spent in counseling and care coordination. Objective - Vital Signs Vital signs: Vital Signs Temp 97.9 F 08/31/21 14:00 Pulse 81 08/31/21 14:00 Resp 16 08/31/21 14:00 BP 106/62 08/31/21 14:00 Pulse Ox 97 08/31/21 14:00 FiO2 Intake & Output 08/30/21 08/31/21 08/31/21 18:59 06:59 18:59 Intake Total 200 Output Total 1230 Balance -1030 Weight 86.183 kg Intake: Intake, IV Titration 200 Amount Ampicillin-Sulbactam 3 gm 200 In Sodium Chloride 0.9% 100 ml @ 200 mls/hr IVPB Q6H [facility] Rx#:[id number] Output: Chest Tube Drainage 30 Chest Tube Left 30 Urine 1200 Other: Voiding Method Toilet Toilet Toilet # Voids 4 - Labs CBC & Chem 7: 08/31/21 05:19 08/29/21 05:07 Labs: Abnormal Lab Results - Last 24 Hours (Table) 08/31/21 Range/Units 05:19 WBC 13.90 H (4.50-10.00) X 10*3/uL RBC 3.74 L (4.40-5.60) X 10*6/uL Hgb 9.5 L (13.0-17.0) g/dL Hct 31.9 L (39.6-50.0) % MCH 25.4 L (27.0-32.0) pg MCHC 29.8 L (32.0-37.0) g/dL MPV 9.4 L (9.5-12.2) fL Metamyelocytes % 3 H (0-0) % Myelocytes % 5 H (0-0) % Monocytes # (Manual) 1.11 H (0.20-1.00) X 10*3/uL Eosinophils # (Manual) 0.70 H (0.04-0.35) X 10*3/uL Microbiology - Last 24 Hours (Table) 08/25/21 12:00 Anaerobic Culture - Final Pleural Fluid
[2021-08-31] MEDS: OLANZapine 10 MG TAB PO SCH (20:39)
[2021-09-01] MEDS: HEPARIN SODIUM,PORCINE/PF 5,000 UNIT/0.5 ML SYRINGE SQ SCH ×4 (00:07→23:48)
[2021-09-01] MEDS: AMPICILLIN-SULBACTAM 3 GM in SODIUM CHLORIDE 0.9% 100 ML IVPB SCH ×4 (02:13→21:45)
--- NOTE | 2021-09-01 08:39 | XR ---
EXAMINATION TYPE: XR chest 1V portable DATE OF EXAM: 09/01/2021 COMPARISON: Chest x-ray 08/31/2021 HISTORY: Left lung abscess, abnormal chest x-ray TECHNIQUE: Single frontal view of the chest is obtained. FINDINGS: Left-sided chest tube remains in place. There is retrocardiac density with central lucency likely representing patient's abnormal cavitary lesion. Pneumonia changes are also present in the ri ght middle lobe, right lower lobe. Patient is rotated. No evident pneumothorax. Cardiac mediastinal s ilhouette is stable. IMPRESSION: Bilateral pneumonia, findings similar to prior exam
[2021-09-01] MEDS: SYMBICORT 160-4.5 MCG INHALER INHALATION SCH ×2 (08:41→19:43)
--- NOTE | 2021-09-01 08:53 | P.PN ---
Subjective Progress Note Date: 08/31/21 Principal diagnosis: Left lung abscess Patient is a 26-year-old male presenting to the hospital with not feeling with left-sided chest pain cough with foul-smelling purulent sputum and this patient did have evidence of left-sided lung abscess status post chest tube placement by interventional radiology on 08/25/2021. On today's evaluation that is 08/31/2021, the patient continues to be afebrile, the patient is breathing comfortably on room air, the patient left-sided chest pain has decreased in intensity, the patient cough has decreased intensity and not bringing up any sputum , the patient denies nausea no vomiting no abdominal pain or diarrhea Objective - Vital Signs Vital signs: Vital Signs Temp 98.0 F 08/31/21 08:00 Pulse 79 08/31/21 08:43 Resp 16 08/31/21 08:43 BP 102/68 08/31/21 08:00 Pulse Ox 95 08/31/21 08:00 FiO2 Intake & Output 08/30/21 08/31/21 08/31/21 18:59 06:59 18:59 Intake Total 200 Output Total 1230 Balance -1030 Weight 86.183 kg Intake: Intake, IV Titration 200 Amount Ampicillin-Sulbactam 3 gm 200 In Sodium Chloride 0.9% 100 ml @ 200 mls/hr IVPB Q6H [facility] Rx#:[id number] Output: Chest Tube Drainage 30 Chest Tube Left 30 Urine 1200 Other: Voiding Method Toilet Toilet Toilet # Voids 4 - Exam GENERAL DESCRIPTION: Young male lying in bed in no distress RESPIRATORY SYSTEM: Unlabored breathing , decreased breath sounds at bases, Left-sided Chest tube HEART: S1 S2 regular rate and rhythm , ABDOMEN: Soft , no tenderness EXTREMITIES: No edema feet - Labs CBC & Chem 7: 08/31/21 05:19 08/29/21 05:07 Labs: Abnormal Lab Results - Last 24 Hours (Table) 08/31/21 Range/Units 05:19 WBC 13.90 H (4.50-10.00) X 10*3/uL RBC 3.74 L (4.40-5.60) X 10*6/uL Hgb 9.5 L (13.0-17.0) g/dL Hct 31.9 L (39.6-50.0) % MCH 25.4 L (27.0-32.0) pg MCHC 29.8 L (32.0-37.0) g/dL MPV 9.4 L (9.5-12.2) fL Metamyelocytes % 3 H (0-0) % Myelocytes % 5 H (0-0) % Monocytes # (Manual) 1.11 H (0.20-1.00) X 10*3/uL Eosinophils # (Manual) 0.70 H (0.04-0.35) X 10*3/uL Microbiology - Last 24 Hours (Table) 08/25/21 12:00 Anaerobic Culture - Final Pleural Fluid Assessment and Plan (1) Lung abscess Current Visit: Yes Status: Acute Code(s): J85.2 - ABSCESS OF LUNG WITHOUT PNEUMONIA SNOMED Code(s): 12169939 Plan: 1patient presented to hospital with symptoms with on for more than a month with left-sided chest pain cough purulent sputum with evidence of lung abscess on CT angiogram question of possible aspiration etiology and will need to cover for the polymicrobial wayne associated this infection. 2patient is status post IR drainage of this abscess and placement of the chest tube, 08/25/2021 and status post alteplase instillations times x [address] surgery 3- pleural fluid cultures currently growing alpha hemolytic Streptococcus, and blood cultures are negative 4patient has shown clinical improvement, patient was advised PICC line and outpatient IV Unasyn at least 2 weeks however the patient is refusing to go to inpatient rehab patient to have a history of IV drug use however mention he has been clean for more than 6 months and has no intention to use PICC line patient seemed to be awake alert oriented 3 and make his decision, 5plan is for PICC line and outpatient IV Rocephin 2 g daily along with oral Flagyl 2 weeks on discharge when stable from pulmonary standpoint, for now continue with the Unasyn Time with Patient: Less than 30
--- NOTE | 2021-09-01 09:35 | P.PN ---
Subjective Progress Note Date: 09/01/21 Principal diagnosis: Left lung abscess with persistent cough and foul-smelling tenacious green tinged sputum. Past medical history significant for epilepsy with his last seizure in May 2021, asthma, polysubstance abuse in which he reports that he has been in rehab for since April 2021. He also has a history of chronic ongoing tobacco abuse. The patient was seen and examined this morning 09/01/2021 at his bedside on the fourth floor medical surgical unit. Currently he is sitting up in bed, is awake, alert, oriented 3 and is in no acute apparent distress. He denies any complaints of pain, shortness of breath, nausea, vomiting and reports that his cough continues to improve. Left chest pigtail catheter remains in place to low continuous wall suction -20 cm H2O. No drainage in the last 24 hours. His T- max temperature in the last 24 hours has been 98.0. He remains on Unasyn for antibiotic coverage managed by infectious disease, his pleural fluid culture fro m 08/25/2021 showed alpha hemolytic streptococcus. Oxygen saturation are 95% on room air and he is achieving 2500 mL on his incentive spirometry. He reports he continues to ambulate in his room and on the fourth floor medical surgical unit hallway. Plan is for PICC line placement and outpatient antibiotics per infectious disease notes. Objective - Vital Signs Vital signs: Vital Signs Temp 97.4 F L 09/01/21 07:21 Pulse 62 09/01/21 07:21 Resp 20 09/01/21 07:21 BP 101/53 09/01/21 07:21 Pulse Ox 96 09/01/21 07:21 FiO2 Intake & Output 08/31/21 09/01/21 09/01/21 18:59 06:59 18:59 Intake Total 200 296 Output Total 15 Balance 200 -15 296 Weight 86.183 kg Intake: Intake, IV Titration 200 Amount Ampicillin-Sulbactam 3 gm 200 In Sodium Chloride 0.9% 100 ml @ 200 mls/hr IVPB Q6H [facility] Rx#:[id number] Oral 296 Output: Chest Tube Drainage 15 Chest Tube Left 15 Other: Voiding Method Toilet Toilet - Exam CONSTITUTIONAL: Lying in bed on the fourth floor medical surgical unit, appears comfortable, cooperative, no apparent acute distress. HEENT: Neck is supple, no JVD, no lymphadenopathy. RESPIRATORY: Lungs sounds diminished to his left lower lobe, essentially clear to his right lobes. Respirations are symmetrical and nonlabored. Currently on room air with oxygen saturations 95%. Able to achieve 2500 mL on his incentive spirometry. Strong cough. Left chest pigtail catheter remains in place to low continuous wall suction -20 cm H2O. No air leak is present. No drainage in the last 24 hours. CARDIOVASCULAR: Regular rhythm and rate. S1 and S2 present, negative for S3, gallop or murmur. Palpable peripheral pulses bilaterally. No calf pain or tenderness noted. GASTROINTESTINAL: Abdomen soft, nontender, nondistended. Active bowel sounds p resent 4 quadrants. Tolerating diet. No guarding or rigidity. GENITOURINARY: Continues to void. INTEGUMENTARY: Skin is warm and dry with no evidence of clubbing or cyanosis. Left chest pigtail catheter dressing is clean, dry and intact. NEUROLOGIC: Cranial nerves II through XII intact. No focal deficits. MUSKULOSKELETAL: Able to move all extremities, strength equal bilaterally. PSYCHIATRIC: Alert and oriented to person place and time, appropriate affect, intact judgment and insight. - Allied health notes Allied health notes reviewed: nursing - Labs CBC & Chem 7: 08/31/21 05:19 08/29/21 05:07 Labs: Abnormal Lab Results - Last 24 Hours (Table) 08/31/21 Range/Units 05:19 WBC 13.90 H (4.50-10.00) X 10*3/uL RBC 3.74 L (4.40-5.60) X 10*6/uL Hgb 9.5 L (13.0-17.0) g/dL Hct 31.9 L (39.6-50.0) % MCH 25.4 L (27.0-32.0) pg MCHC 29.8 L (32.0-37.0) g/dL MPV 9.4 L (9.5-12.2) fL Metamyelocytes % 3 H (0-0) % Myelocytes % 5 H (0-0) % Monocytes # (Manual) 1.11 H (0.20-1.00) X 10*3/uL Eosinophils # (Manual) 0.70 H (0.04-0.35) X 10*3/uL Microbiology - Last 24 Hours (Table) 08/25/21 12:00 Anaerobic Culture - Final Pleural Fluid - Imaging and Cardiology Chest x-ray: report reviewed, image reviewed Assessment and Plan Assessment: 1. Left lower lobe lung abscess, status post placement of left pleural pigtail catheter by interventional radiology, with alteplase/dornase instilled 3, pleur al fluid culture from 08/25/2021 shows all for hemolytic Streptococcus 2. Leukocytosis, secondary to left lower lobe lung abscess 3. Persistent cough and foul-smelling tenacious green tinged sputum, secondary to above, cough has improved 4 History of asthma 5. History of seizure disorder, states his last seizure was in May 2021 6. History of polysubstance abuse, currently in rehab since April 2021 7. Chronic ongoing tobacco abuse Plan: 1. We will remove his left chest pigtail catheter today. We will follow the patient on an as-needed basis. Okay to be discharged home when okay with other consultants and a primary care service. 2. Continue to career development counselor and reinforce with the patient the importance of smoking cessation and cessation of polysubstance abuse. 3. Encourage use of his incentive spirometry 10 times every hour while awake. 4. Pain control per current when necessary orders. 5. Pleural fluid culture shows alpha hemolytic streptococcus. Pleural fluid cytology results show abundant acute and chronic inflammation with inflammatory debris, compatible with abscess, negative for malignancy. He remains on Unasyn for antibiotic coverage which is being managed by infectious disease. Plan is for PICC line placement per infectious disease recommendations. 6. Increase activity as tolerated. Out of bed for all meals. 7. More recommendations to follow based on patient's clinical course. Time with Patient: Greater than 30
[2021-09-01 09:39] LABS: African American GFR (CKD) 119.9 (60.0-200.0); Anion Gap 11.1 mmol/L (10.00-18.00); BUN/Creat Ratio 12.2 Ratio (12.00-20.00); Blood Urea Nitrogen 12.2 mg/dL (9.0-27.0); Carbon Dioxide 29.9 mmol/L (20.0-27.5); Non-African American GFR(CKD) 103.4 (60.0-200.0); Potassium 4.9 mmol/L (3.5-5.5)
[2021-09-01 10:13] LABS: Basophils # (M) 0.12 X 10*3/uL (0.00-0.10); Eosinophils # (M) 0.85 X 10*3/uL (0.04-0.35); HCT 32.3 % (39.6-50.0); HGB 9.6 g/dL (13.0-17.0); Lymphocytes # (M) 2.07 X 10*3/uL (0.90-5.00); MCH 24.9 pg (27.0-32.0); MCHC 29.7 g/dL (32.0-37.0); MCV 83.7 fL (80.0-97.0); Mean Platelet Volume 9.2 fL (9.5-12.2); Metamyelocytes % 3 % (0-0); Monocytes # (M) 0.85 X 10*3/uL (0.20-1.00); Myelocytes % 7 % (0-0); NRBC Per 100 WBC 0 /100 WBCS (0.0-0.0); Neutrophils # (M) 6.95 X 10*3/uL (2.00-8.90); Neutrophils % (M) 57 %; Platelet Count 339 X 10*3/uL (140-440); Promyelocytes # (M) 0.12 k/uL (0); Promyelocytes % 1 % (0-0); RBC 3.86 X 10*6/uL (4.40-5.60); RDW 13.8 % (11.5-14.5)
[2021-09-01] MEDS: DIVALPROEX 500 MG TABLET.DR PO SCH ×3 (10:39→21:45)
[2021-09-01] MEDS: DIVALPROEX SPRINKLE 125 MG CAP.SPRINK PO SCH ×3 (10:39→21:45)
[2021-09-01] MEDS: hydrOXYzine HCL 25 MG TAB PO SCH ×3 (10:40→21:45)
[2021-09-01] MEDS: FLUoxetine HCL 20 MG CAP PO SCH (10:42)
[2021-09-01] MEDS: FERROUS SULFATE 325 MG TAB PO SCH (12:45)
--- NOTE | 2021-09-01 13:34 | P.PN ---
Subjective Hospital course: Patient is a 26-year-old male with prior history of polysubstance abuse sober for 4 months, asthma, and epilepsy who presented to the ER with complaints of cough and foul-smelling sputum. In the ER he underwent an extensive evaluation. Initial vital signs were within normal limits. However he then spiked a fever of 101. Laboratory analysis demonstrated a white blood cell count of 16.5, hemoglobin 9.8, d-dimer 1.5, potassium 3.4. COVID-19 testing was negative. Chest x-ray showed a large area of airspace consolidation in the left lower lobe. CT of the chest showed a large complex fluid collection in the left lower hemithorax likely related to large lung abscess. Patient was started on IV fluids and Unasyn. He was admitted for further monitoring. Pulmonary was consulted. He was seen by infectious disease who recommended continuing Unasyn. He underwent IR guided chest tube placement for pulmonary abscess on 08/25. He was seen by cardiothoracic surgery. They instilled TPA into his chest tube. Pleural fluid cultures positive for Alpha Hemolytic Streptococcus. Computed tomography scan completed 08/29/21 revealing persistent left lower lobe sit consolidation with air bronchogram within, slightly improved compared to the previous computed tomography scan along with persistent bilateral pulmonary areas of groundglass opacities and pulmonary consolidation increased in density today compared to previous computed tomography scan possibly representing extensive pulmonary infection, septic emboli cannot be excluded. Interval history: Patient is seen and fully evaluated at bedside this morning. Patient denies any chest pain or shortness of breath. Chest tube removed today by cardiothoracic surgery. ID plan to keep the patient overnight and discharged home tomorrow with IV Rocephin and by mouth Flagyl Physical examination: General: non toxic, no distress, appears at stated age Derm: warm, dry Head: atraumatic, normocephalic, symmetric Eyes: EOMI, no lid lag, anicteric sclera Mouth: no lip lesion, mucus membranes moist Cardiovascular: S1S2 reg, no murmur, positive posterior tibial pulse bilateral, Lungs: CTA bilateral, no rhonchi, no rales , no accessory muscle use. Abdominal: soft, nontender to palpation, no guarding, no appreciable organomegaly Ext: no gross muscle atrophy, no edema, no contractures Neuro: CN II-XI grossly intact, no focal neuro deficits Psych: Alert, oriented, appropriate affect Assessment and plan of care: Left lung abscess with sepsis status post pigtail catheter insertion 08/25/21 and TPA X 4. -Pulmonology following, appreciate further recommendations -Infectious disease following, appreciate further recommendations -Continue with IV antibiotic: Unasyn pending further culture results and/or further recommendations from infectious disease -CT surgery removed chest tube today 09/01 -Pleural fluid cultures positive for Alpha Hemolytic Streptococcus -IV fluids Discontinued as patient is tolerating oral intake. -Continue pain medication regimen, Toradol 15 mg IVP every 6 hours -Patient report negative HIV and Hep C testing 2 weeks ago. Iron deficiency anemia Anemia -Iron 17, TIBC 154, iron percent saturation 10.71 and ferritin 110.0. -Hemoglobin stable at 8.7 -Continue ferrous sulfate 325 mg daily -Follow CBC History of opiate dependency -In remission on Suboxone Seizure disorder -Depakote -Seizure precautions Asthma without exacerbation -Bronchodilators when necessary and scheduled CODE STATUS full code DVT prophylaxis: Heparin Discussed with: Patient and RN Anticipated discharge home tomorrow with IV antibiotics Objective - Vital Signs Vital signs: Vital Signs Temp 97.4 F L 09/01/21 07:21 Pulse 62 09/01/21 07:21 Resp 20 09/01/21 07:21 BP 101/53 09/01/21 07:21 Pulse Ox 96 09/01/21 07:21 FiO2 Intake & Output 08/31/21 09/01/21 09/01/21 18:59 06:59 18:59 Intake Total 200 296 Output Total 15 Balance 200 -15 296 Weight 86.183 kg Intake: Intake, IV Titration 200 Amount Ampicillin-Sulbactam 3 gm 200 In Sodium Chloride 0.9% 100 ml @ 200 mls/hr IVPB Q6H [facility] Rx#:[id number] Oral 296 Output: Chest Tube Drainage 15 Chest Tube Left 15 Other: Voiding Method Toilet Toilet - Labs CBC & Chem 7: 09/01/21 06:16 09/01/21 06:16 Labs: Abnormal Lab Results - Last 24 Hours (Table) 09/01/21 09/01/21 Range/Units 06:16 06:16 WBC 12.20 H (4.50-10.00) X 10*3/uL RBC 3.86 L (4.40-5.60) X 10*6/uL Hgb 9.6 L (13.0-17.0) g/dL Hct 32.3 L (39.6-50.0) % MCH 24.9 L (27.0-32.0) pg MCHC 29.7 L (32.0-37.0) g/dL MPV 9.2 L (9.5-12.2) fL Metamyelocytes % 3 H (0-0) % Myelocytes % 7 H (0-0) % Promyelocytes % 1 H (0-0) % Eosinophils # (Manual) 0.85 H (0.04-0.35) X 10*3/uL Basophils # (Manual) 0.12 H (0.00-0.10) X 10*3/uL Carbon Dioxide 29.9 H (20.0-27.5) mmol/L Microbiology - Last 24 Hours (Table) 08/25/21 12:00 Anaerobic Culture - Final Pleural Fluid
--- NOTE | 2021-09-01 14:46 | P.PN ---
Subjective Progress Note Date: 09/01/21 Principal diagnosis: left lung abscess 76-year-old male patient with a lung abscess and the patient is supposed to undergo an pigtail catheter insertion and drainage of a left lung abscess by interventional radiology. The patient is clinically doing well. No new complaints. His white cell count today is at her 18.1 and the patient's pro calcitonin level was at 0.27. He is hemodynamically stable. He remains on IV antibiotics and he was seen by infectious disease and he was kept on IV Unasyn 10 2021, the patient has no complaints. The pigtail catheter was inserted ye sterday and the patient had purulent material aspirated from the right lung. I coordinated the care with the cardiothoracic team. I was in favor of injecting it with alteplase and after the instillation, total of 170 mL of purulent material came out of the chest tube. Following the instillation, the patient had some increased cough and congestion and some reactions during which he also became febrile with a temperature of 101. Subsequently all of the symptoms improved. Another dose of alteplase was given today without any reactions. He is resting comfortably in bed. Repeat chest x-ray shows interval resolution of the lung abscess seen earlier. Cultures still pending for now. The patient remains on the same antibiotics for now. Electrolytes are normal and the pro- calcitonin level is at 0.27. 08/27/2021, patient is being seen for a follow-up. The patient is resting comfortably in bed. Pigtail catheter in place. The patient will receive 2 alteplase treatment and a total of 200 mL of fluid brownish improvement was aspirated from the left lung over the past 24 hours. Note that a follow-up CAT scan of the chest was also done and showed some groundglass changes on the right and some areas of groundglass changes in the left. Nevertheless, the right lung abscess had decreased in size and there is persistent consolidation of the left lower lobe. The patient remains on IV Unasyn. Cultures are still negative for now. Note that the material to drain from the lung was foul-smelling and tenacious and purulent. He is on room air oxygen. The white cell count is 16.3 with hemoglobin of 8.7. Electrodes are all within normal limits. Serum iron was low at 17 and the Pronestyl level was at 0.27. No altered mentation. 08/28/2021, the patient is being seen for a follow-up a chest x-ray findings are essentially stable. Output from the pigtail catheter drop and the patient was given another alteplase treatment today. The patient otherwise doing well. No specific complaints. He remains on room air oxygen. Using incentive spirometer and the patient remains on Unasyn. Cultures are all negative thus far. Output from the PICC line for yesterday was only 70 mL of thick brownish material. on 08/29/2021 patient seen in follow-up on medical surgical floor. He is resting comfortably in bed, he states he is feeling better, does not appear to be in any acute distress, denies chest pain, denies any hemoptysis, room air pulse ox is 95%. patient had another Dorse instillation into the left-side pigtail catheter. Pleural fluid cultures were positive for alpha hemolytic streptococcus. Patient remains on Unasyn, ID service is following. His had no acute events overnight. On 08/30/2021 patient seen in follow-up on medical surgical floor. He is resting comfortably in bed, in no acute distress. Room air pulse ox is 95-98%, he is afebrile, breathing is nonlabored. Left-sided pleural chest drain in place, today's chest x-ray shows ongoing patchy bibasilar opacities, right greater than left. Patient received a dose of alteplase and dornase today. He has had no output from the chest tube over the last 24 hours. Today's labs are still pending. The vitals are stable, patient denies any worsening shortness of breath or cough. No hemoptysis, no chest discomfort. His pleural fluid cultures showed alphahemolytic streptococcus. ID service is following, patient remains on Unasyn On 08/31/2021 patient seen in follow-up on medical surgical floor. He is resting comfortably in bed, does not appear to be any acute distress, he remains on Unasyn for antibiotic coverage, his pleural fluid cultures are positive for alpha hemolytic streptococcus, blood cultures were negative. His left-sided pigtail chest tube has only produced 40 mL of pleural fluid output in last 24 hours, chest x-ray showing a stable left posterior basilar pleural drainage, and persistent right mid to lower lung acute infiltrate. he has received on a dose of alteplase and dornase with minimal drainage. CT surgery is following. Vital signs have been stable, no fever or chills, no chest pain, no hemoptysis. ID service is following, and patient will likely need a PICC line for IV antibiotic treatment after discharge. On 09/01/2021 patient seen in follow-up on medical surgical floor. Patient is awake and alert, in no acute distress, he is resting comfortably in bed, his pigtail chest tube has been discontinued, PICC line is being put in today, clinically patient denies any worsening dyspnea, his breathing comfortably, remains on room air, pulse ox is 96%, no fever or chills, hemodynamically stable. Today's chest x-ray showing bilateral pneumonia, retrocardiac density with central lucency likely representing abnormal cancerous lesion, infiltrate in the right middle lobe and right lower lobe. Findings are stable compared to previous exam. Patient remains on Unasyn Objective - Vital Signs Vital signs: Vital Signs Temp 97.4 F L 09/01/21 07:21 Pulse 62 09/01/21 07:21 Resp 20 09/01/21 07:21 BP 101/53 09/01/21 07:21 Pulse Ox 96 09/01/21 07:21 FiO2 Intake & Output 08/31/21 09/01/21 09/01/21 18:59 06:59 18:59 Intake Total 200 296 Output Total 15 Balance 200 -15 296 Weight 86.183 kg Intake: Intake, IV Titration 200 Amount Ampicillin-Sulbactam 3 gm 200 In Sodium Chloride 0.9% 100 ml @ 200 mls/hr IVPB Q6H [facility] Rx#:[id number] Oral 296 Output: Chest Tube Drainage 15 Chest Tube Left 15 Other: Voiding Method Toilet Toilet - Exam GENERAL EXAM: Alert, active, comfortable in no apparent distress. HEAD: Normocephalic/atraumatic. EYES: Normal reaction of pupils, equal size. Conjunctiva pink, sclera white. NOSE: Clear with pink turbinates. THROAT: No erythema or exudates. NECK: No masses, no JVD, no thyroid enlargement, no adenopathy. CHEST: No chest wall deformity. Symmetrical expansion. left posterior pigtail catheter in place, connected to the pleuravac LUNGS: Equal air entry with no crackles, wheeze, rhonchi or dullness. CVS: Regular rate and rhythm, normal S1 and S2, no gallops, no murmurs, no rubs ABDOMEN: Soft, nontender. No hepatosplenomegaly, normal bowel sounds, no guarding or rigidity. EXTREMITIES: No clubbing, no edema, no cyanosis, 2+ pulses and upper and lower extremities. MUSCULOSKELETAL: Muscle strength and tone normal. SPINE: No scoliosis or deformity SKIN: No rashes CENTRAL NERVOUS SYSTEM: Alert and oriented -3. No focal deficits, tone is normal in all 4 extremities. PSYCHIATRIC: Alert and oriented -3. Appropriate affect. Intact judgment and insight. - Labs CBC & Chem 7: 09/01/21 06:16 09/01/21 06:16 Labs: Abnormal Lab Results - Last 24 Hours (Table) 09/01/21 09/01/21 Range/Units 06:16 06:16 WBC 12.20 H (4.50-10.00) X 10*3/uL RBC 3.86 L (4.40-5.60) X 10*6/uL Hgb 9.6 L (13.0-17.0) g/dL Hct 32.3 L (39.6-50.0) % MCH 24.9 L (27.0-32.0) pg MCHC 29.7 L (32.0-37.0) g/dL MPV 9.2 L (9.5-12.2) fL Metamyelocytes % 3 H (0-0) % Myelocytes % 7 H (0-0) % Promyelocytes % 1 H (0-0) % Eosinophils # (Manual) 0.85 H (0.04-0.35) X 10*3/uL Basophils # (Manual) 0.12 H (0.00-0.10) X 10*3/uL Carbon Dioxide 29.9 H (20.0-27.5) mmol/L Microbiology - Last 24 Hours (Table) 08/25/21 12:00 Anaerobic Culture - Final Pleural Fluid Assessment and Plan Plan: assessment: #1. Lung abscess occupying the left lower lobe. This is a large complex structure measuring around 10 cm in size and it includes fluid, air and agrees. the patient underwent a percutaneous pigtail catheter insertion with purulent material being aspirated from the left lung. The chest x-ray showing improvement in the abscess in the left lung. the patient had to alteplase treatments with drainage in the order of 170 mL of purulent material from the left lung. He is afebrile. He is on IV Unasyn. A repeat CAT scan of the chest was done that showed diminution of the left lung abscess. There is persistent consolidation of left lower lobe. There are areas of ground glass changes developing bilaterally. Could be in acute lung injury or reaction to alteplase treatment. Since the alteplase treatment 2, the patient has a more than 200 mL of purulent putrid material from the left lung. Remains on IV Unasyn. Hemodynamically stable. #2. History of seizure disorder #3. History of polysubstance abuse #4. Leukocytosis secondary to lung abscess, improving #5. History of bronchial asthma plan: Pig tail chest tube is being removed per CT surgery Patient had a PICC line put in Patient will go home on IV infusions Clinically patient is breathing comfortably, Vitals are stable, no fever or chills Discharge planning is in progress for possible discharge home tomorrow on 09/02/2021 Outpatient follow-up with Dr. Cross in the office in 7-10 days I have personally seen and examined the patient, performed the documentation and the assessment and plan as written. Number of minutes spent on the visit: [10] Time with Patient: Less than 30
[2021-09-01] MEDS: OLANZapine 10 MG TAB PO SCH (21:45)
[2021-09-02] MEDS: AMPICILLIN-SULBACTAM 3 GM in SODIUM CHLORIDE 0.9% 100 ML IVPB SCH ×2 (03:45→07:57)
[2021-09-02] MEDS: HEPARIN SODIUM,PORCINE/PF 5,000 UNIT/0.5 ML SYRINGE SQ SCH ×2 (07:56→15:31)
[2021-09-02] MEDS: DIVALPROEX SPRINKLE 125 MG CAP.SPRINK PO SCH ×2 (07:57→15:31)
[2021-09-02] MEDS: FLUoxetine HCL 20 MG CAP PO SCH (07:58)
[2021-09-02] MEDS: DIVALPROEX 500 MG TABLET.DR PO SCH ×2 (07:58→15:31)
[2021-09-02] MEDS: hydrOXYzine HCL 25 MG TAB PO SCH ×2 (07:58→15:31)
[2021-09-02] MEDS: SYMBICORT 160-4.5 MCG INHALER INHALATION SCH (08:21)
[2021-09-02 09:13] LABS: African American GFR (CKD) 106.8 (60.0-200.0); Anion Gap 13.9 mmol/L (10.00-18.00); BUN/Creat Ratio 13.73 Ratio (12.00-20.00); Blood Urea Nitrogen 15.1 mg/dL (9.0-27.0); Calcium 9.2 mg/dL (8.7-10.3); Carbon Dioxide 27.1 mmol/L (20.0-27.5); Non-African American GFR(CKD) 92.2 (60.0-200.0); Potassium 4.8 mmol/L (3.5-5.5)
[2021-09-02] MEDS ORDERED: LIDOCAINE 1% INJ 10MG/ML (5 ML VIAL-PF) SQ ONE (09:25)
--- NOTE | 2021-09-02 11:08 | IR ---
EXAMINATION TYPE: IR cvc insert >=5 years DATE OF EXAM: 09/02/2021 COMPARISON: NONE CLINICAL HISTORY: Infection Needs long-term intravenous access for antibiotics. PROCEDURE: Hand hygiene obtained with soap and water and alcohol-based hand rub. After informed consent, the skin overlying the left basilic vein was localized with ultrasound and no tere to be compressible and patent. An ultrasound image was obtained and submitted on the patient's c shelby. The overlying skin was prepped and draped and Lidocaine was used for local anesthesia. A skin goldie was made with a scalpel. Access was gained to the vein under ultrasound guidance with a 21 gau ge needle and a 0.018 inch wire was advanced. Access site was dilated with Peel-Away sheath and cath eter tailored to the appropriate length and advanced such that the distal tip is at the cavoatrial ju nction. Spot image was obtained verifying placement. Catheter was fixed to the skin and a sterile d ressing was placed following hemostasis. Catheter was aspirated and flushed with saline. Patient wa s discharged in stable condition without complication.Maximal barrier technique is utilized. Ultraso und image is documented on the chart. Ultrasound used with sterile technique. Fluoro time and fluoroscopic images submitted to document procedure: 13intraoperative C-arm images, 0 .2 minutes fluoroscopy time IMPRESSION: STATUS POST ULTRASOUND AND FLUOROSCOPIC GUIDED PICC LINE PLACEMENT, READY FOR USE. THIS PROCEDURE WAS PERFORMED BY THE UNDERSIGNED.
[2021-09-02 12:21] LABS: Basophils # (M) 0.16 X 10*3/uL (0.00-0.10); Eosinophils # (M) 1.57 X 10*3/uL (0.04-0.35); HCT 34.1 % (39.6-50.0); HGB 10.5 g/dL (13.0-17.0); Lymphocytes # (M) 4.24 X 10*3/uL (0.90-5.00); MCH 25.5 pg (27.0-32.0); MCHC 30.8 g/dL (32.0-37.0); Mean Platelet Volume 9.1 fL (9.5-12.2); Metamyelocytes % 3 % (0-0); Monocytes # (M) 0.63 X 10*3/uL (0.20-1.00); Myelocytes % 4 % (0-0); NRBC Per 100 WBC 0 /100 WBCS (0.0-0.0); Neutrophils # (M) 8.01 X 10*3/uL (2.00-8.90); Neutrophils % (M) 51 %; Platelet Count 335 X 10*3/uL (140-440); RBC 4.11 X 10*6/uL (4.40-5.60); RBC Morphology NORMAL; RDW 14.1 % (11.5-14.5)
[2021-09-02] MEDS: FERROUS SULFATE 325 MG TAB PO SCH (13:58)
--- NOTE | 2021-09-02 15:28 | P.DS ---
Providers Date of admission: 08/24/21 03:21 Expected date of discharge: 09/02/21 Attending physician: Donna Lizarraga MD Consults: 08/24/21 03:21 Consult Physician Routine Consulting Provider: Domonique Cross Consult Reason/Comments: Pneumonia. Lung Abscess Do you want consulting provider notified?: Yes 08/24/21 11:56 Consult Physician Urgent Consulting Provider: Syd Lopez Consult Reason/Comments: large left lung abscess Do you want consulting provider notified?: Yes 08/25/21 11:31 Consult Physician Routine Consulting Provider: Jason Poole Consult Reason/Comments: left lung abscess Do you want consulting provider notified?: Yes Primary care physician: Stated None Hospital Course: Hospital course: Patient is a 26-year-old male with prior history of polysubstance abuse sober for 4 months, asthma, and epilepsy who presented to the ER with complaints of cough and foul-smelling sputum. In the ER he underwent an extensive evaluation. Initial vital signs were within normal limits. However he then spiked a fever of 101. Laboratory analysis demonstrated a white blood cell count of 16.5, hemoglobin 9.8, d-dimer 1.5, potassium 3.4. COVID-19 testing was negative. Chest x-ray showed a large area of airspace consolidation in the left lower lobe. CT of the chest showed a large complex fluid collection in the left lower hemithorax likely related to large lung abscess. Patient was started on IV fluids and Unasyn. He was admitted for further monitoring. Pulmonary was consulted. He was seen by infectious disease who recommended continuing Unasyn. He underwent IR guided chest tube placement for pulmonary abscess on 08/25. He was seen by cardiothoracic surgery. They instilled TPA into his chest tube. Pleural fluid cultures positive for Alpha Hemolytic Streptococcus. Computed tomography scan completed 08/29/21 revealing persistent left lower lobe sit consolidation with air bronchogram within, slightly improved compared to the previous computed tomography scan along with persistent bilateral pulmonary areas of groundglass opacities and pulmonary consolidation increased in density today compared to previous computed tomography scan possibly representing extensive pulmonary infection, septic emboli cannot be excluded. Detailed the problem list Left lung abscess with sepsis status post pigtail catheter insertion 08/25/21 and TPA X 4. Empyema -Pulmonology following, appreciate further recommendations -CT surgery removed chest tube today 09/01 -Pleural fluid cultures positive for Alpha Hemolytic Streptococcus -Infectious disease recommended 2 weeks of Rocephin through PICC line after discharge +2 weeks of oral Flagyl -Cardiothoracic and infectious disease specialist cleared the patient for discharge Iron deficiency anemia Anemia -Iron 17, TIBC 154, iron percent saturation 10.71 and ferritin 110.0. 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 Abdominal: soft, nontender to palpation, no guarding, no appreciable organomegaly Ext: no gross muscle atrophy, no edema, no contractures Neuro: CN II-XI grossly intact, no focal neuro deficits Psych: Alert, oriented, appropriate affect Patient Condition at Discharge: Stable Plan - Discharge Summary Discharge Rx Participant: No New Discharge Prescriptions: New cefTRIAXone [Rocephin] 2,000 mg IVP Q24HR #14 each Ferrous Sulfate [Iron (65 MG Elemental)] 325 mg PO W/LUNCH #30 tab metroNIDAZOLE [Flagyl] 500 mg PO TID #42 tab Continue Divalproex Sodium [Depakote] 125 mg PO TID Cetirizine HCl 10 mg PO DAILY PRN PRN Reason: Allergy Symptoms Ergocalciferol [Vitamin D2 (1250 Mcg = 75686 Iu)] 1,250 mcg PO Q7D Buprenorphine/Naloxone 8Mg/2Mg [Suboxone 8-2Mg Film] 1 film SL BID Budesonide-Formot 160-4.5 Mcg [Symbicort 160-4.5 Mcg Inhaler] 2 puff INHALATION RT-BID hydrOXYzine HCL [Atarax] 25 mg PO TID OLANZapine [ZyPREXA] 10 mg PO HS FLUoxetine HCL [PROzac] 20 mg PO DAILY Divalproex Sodium [Depakote] 500 mg PO TID Albuterol Sulfate [Proair Hfa] 1 - 2 puff INHALATION RT-Q6H PRN PRN Reason: Shortness Of Breath Discharge Medication List Albuterol Sulfate [Proair Hfa] 1 - 2 puff INHALATION RT-Q6H PRN 08/24/21 [History] Budesonide-Formot 160-4.5 Mcg [Symbicort 160-4.5 Mcg Inhaler] 2 puff INHALATION RT-BID 08/24/21 [History] Buprenorphine/Naloxone 8Mg/2Mg [Suboxone 8-2Mg Film] 1 film SL BID 08/24/21 [History] Cetirizine HCl 10 mg PO DAILY PRN 08/24/21 [History] Divalproex Sodium [Depakote] 125 mg PO TID 08/24/21 [History] Divalproex Sodium [Depakote] 500 mg PO TID 08/24/21 [History] Ergocalciferol [Vitamin D2 (1250 Mcg = 04234 Iu)] 1,250 mcg PO Q7D 08/24/21 [History] FLUoxetine HCL [PROzac] 20 mg PO DAILY 08/24/21 [History] OLANZapine [ZyPREXA] 10 mg PO HS 08/24/21 [History] hydrOXYzine HCL [Atarax] 25 mg PO TID 08/24/21 [History] Ferrous Sulfate [Iron (65 MG Elemental)] 325 mg PO W/LUNCH #30 tab 09/02/21 [Rx] cefTRIAXone [Rocephin] 2,000 mg IVP Q24HR #14 each 09/02/21 [Rx] metroNIDAZOLE [Flagyl] 500 mg PO TID #42 tab 09/02/21 [Rx] Follow up Appointment(s)/Referral(s): [facility],Infusion [NON-STAFF] - 09/03/21 11:00 am None,Stated [Primary Care Provider] - 1-2 days Syd Lopez MD [STAFF PHYSICIAN] - 1 Week Domonique Cross MD [STAFF PHYSICIAN] - 1 Week Ambulatory/Diagnostic Orders: Basic Metabolic Panel [LAB.AMB] Location: None Selected C Reactive Protein [LAB.AMB] Location: None Selected Complete Blood Count w/diff [LAB.AMB] Location: None Selected
[2021-09-02 16:16] VITALS: BP 90/54; PULSE 86; RESP 16; TEMP 97.6
--- NOTE | 2021-09-02 21:40 | P.PN ---
Subjective Progress Note Date: 09/01/21 Principal diagnosis: Left lung abscess Patient is a 26-year-old male presenting to the hospital with not feeling with left-sided chest pain cough with foul-smelling purulent sputum and this patient did have evidence of left-sided lung abscess status post chest tube placement by interventional radiology on 08/25/2021, the patient's chest tube has been discontinued On today's evaluation that is 09/01/2021, the patient remains to be afebrile, the patient is breathing comfortably on room air, the patient denies any worsening left-sided chest pain , the patient cough has decreased intensity and not bringing up any sputum , the patient denies nausea no vomiting no abdominal pain or diarrhea Objective - Vital Signs Vital signs: Vital Signs Temp 97.4 F L 09/01/21 14:44 Pulse 87 09/01/21 14:44 Resp 20 09/01/21 07:21 BP 102/67 09/01/21 14:44 Pulse Ox 97 09/01/21 14:44 FiO2 Intake & Output 08/31/21 09/01/21 09/01/21 18:59 06:59 18:59 Intake Total 200 592 Output Total 15 Balance 200 -15 592 Weight 86.183 kg Intake: Intake, IV Titration 200 Amount Ampicillin-Sulbactam 3 gm 200 In Sodium Chloride 0.9% 100 ml @ 200 mls/hr IVPB Q6H [facility] [place] Rx#:[id number] Oral 592 Output: Chest Tube Drainage 15 Chest Tube Left 15 Other: Voiding Method Toilet Toilet - Exam GENERAL DESCRIPTION: Young male lying in bed in no distress RESPIRATORY SYSTEM: Unlabored breathing , decreased breath sounds at bases, Left-sided Chest tube HEART: S1 S2 regular rate and rhythm , ABDOMEN: Soft , no tenderness EXTREMITIES: No edema feet - Labs CBC & Chem 7: 09/02/21 05:25 09/02/21 05:25 Labs: Abnormal Lab Results - Last 24 Hours (Table) 09/01/21 09/01/21 Range/Units 06:16 06:16 WBC 12.20 H (4.50-10.00) X 10*3/uL RBC 3.86 L (4.40-5.60) X 10*6/uL Hgb 9.6 L (13.0-17.0) g/dL Hct 32.3 L (39.6-50.0) % MCH 24.9 L (27.0-32.0) pg MCHC 29.7 L (32.0-37.0) g/dL MPV 9.2 L (9.5-12.2) fL Metamyelocytes % 3 H (0-0) % Myelocytes % 7 H (0-0) % Promyelocytes % 1 H (0-0) % Eosinophils # (Manual) 0.85 H (0.04-0.35) X 10*3/uL Basophils # (Manual) 0.12 H (0.00-0.10) X 10*3/uL Carbon Dioxide 29.9 H (20.0-27.5) mmol/L Assessment and Plan (1) Lung abscess Status: Acute Code(s): J85.2 - ABSCESS OF LUNG WITHOUT PNEUMONIA SNOMED Code(s): 34222206 Plan: 1patient presented to hospital with symptoms with on for more than a month with left-sided chest pain cough purulent sputum with evidence of lung abscess on CT angiogram question of possible aspiration etiology and will need to cover for the polymicrobial wayne associated this infection. 2patient is status post IR drainage of this abscess and placement of the chest tube, 08/25/2021 and status post alteplase instillations times x [address] surgery 3- pleural fluid cultures currently growing alpha hemolytic Streptococcus, and blood cultures are negative 4patient has shown clinical improvement, patient is to has been discontinued 5-continue Unasyn plan to switch him over to Rocephin 2 g daily and oral Flagyl in the morning if Time with Patient: Less than 30
--- NOTE | 2021-09-02 21:42 | P.PN ---
Subjective Progress Note Date: 09/02/21 Principal diagnosis: Left lung abscess Patient is a 26-year-old male presenting to the hospital with not feeling with left-sided chest pain cough with foul-smelling purulent sputum and this patient did have evidence of left-sided lung abscess status post chest tube placement by interventional radiology on 08/25/2021, the patient's chest tube has been discontinued On today's evaluation that is 09/02/2021, the patient continues to be afebrile, the patient is breathing comfortably on room air, the patient left-sided chest pain is currently controlled , the patient cough has decreased intensity and mostly dry in nature, the patient denies nausea no vomiting no abdominal pain or diarrhea Objective - Vital Signs Vital signs: Vital Signs Temp 97.4 F L 09/02/21 08:42 Pulse 93 09/02/21 08:42 Resp 18 09/02/21 08:42 BP 100/64 09/02/21 08:42 Pulse Ox 94 L 09/02/21 08:42 FiO2 Intake & Output 09/01/21 09/02/21 09/02/21 18:59 06:59 18:59 Intake Total 1938 Output Total 400 Balance 1938 -400 Intake: Intake, IV Titration 200 Amount Ampicillin-Sulbactam 3 gm 200 In Sodium Chloride 0.9% 100 ml @ 200 mls/hr IVPB [facility]6H [facility] Rx#:[id number] Oral 1738 Output: Urine 400 Other: Voiding Method Toilet Toilet Toilet # Voids 3 2 - Exam GENERAL DESCRIPTION: Young male lying in bed in no distress RESPIRATORY SYSTEM: Unlabored breathing , decreased breath sounds at bases, HEART: S1 S2 regular rate and rhythm , ABDOMEN: Soft , no tenderness EXTREMITIES: No edema feet - Labs CBC & Chem 7: 09/02/21 05:25 09/02/21 05:25 Labs: Abnormal Lab Results - Last 24 Hours (Table) 09/02/21 Range/Units 05:25 WBC 15.70 H (4.50-10.00) X 10*3/uL RBC 4.11 L (4.40-5.60) X 10*6/uL Hgb 10.5 L (13.0-17.0) g/dL Hct 34.1 L (39.6-50.0) % MCH 25.5 L (27.0-32.0) pg MCHC 30.8 L (32.0-37.0) g/dL MPV 9.1 L (9.5-12.2) fL Metamyelocytes % 3 H (0-0) % Myelocytes % 4 H (0-0) % Eosinophils # (Manual) 1.57 H (0.04-0.35) X 10*3/uL Basophils # (Manual) 0.16 H (0.00-0.10) X 10*3/uL Microbiology - Last 24 Hours (Table) 08/25/21 12:00 Fungal Culture - Preliminary Aspirate Assessment and Plan (1) Lung abscess Status: Acute Code(s): J85.2 - ABSCESS OF LUNG WITHOUT PNEUMONIA SNOMED Code(s): 65969843 Plan: 1patient presented to hospital with symptoms with on for more than a month with left-sided chest pain cough purulent sputum with evidence of lung abscess on CT angiogram question of possible aspiration etiology and will need to cover for the polymicrobial wayne associated this infection. 2patient is status post IR drainage of this abscess and placement of the chest tube, 08/25/2021 and status post alteplase instillations times x [address] surgery 3- pleural fluid cultures currently growing alpha hemolytic Streptococcus, and blood cultures are negative 4patient has shown clinical improvement, patient is to has been discontinued 5-discontinue Unasyn, antibiotics switched to Rocephin 2 g daily and oral Flagyl 2 weeks on discharge and close patient follow up Time with Patient: Less than 30
== END 2021-09-02 18:13 | disposition home or self-care (01) | DRG 871 ==
LOC: EC 20:57 → 4SSUR 08-24 03:21
PROVIDERS: ADMIT Internal Medicine; ATTEND Internal Medicine
PROC: 0W9B30Z Drainage of Left Pleural Cavity with Drainage Device, Percutaneous Approach (ICD-10-PCS; principal; 2021-08-25)
PROC: 3E0L3GC Introduction of Other Therapeutic Substance into Pleural Cavity, Percutaneous Approach (ICD-10-PCS; 2021-08-26)
PROC: 02HV33Z Insertion of Infusion Device into Superior Vena Cava, Percutaneous Approach (ICD-10-PCS; 2021-09-02)
DX: A40.0 Sepsis due to streptococcus, group A (principal); J85.1 Abscess of lung with pneumonia; J15.4 Pneumonia due to other streptococci; J90 Pleural effusion, not elsewhere classified; F11.20 Opioid dependence, uncomplicated; D50.9 Iron deficiency anemia, unspecified; F10.11 Alcohol abuse, in remission; E87.6 Hypokalemia; G40.909 Epilepsy, unspecified, not intractable, without status epilepticus; F15.11 Other stimulant abuse, in remission; F14.11 Cocaine abuse, in remission; Z20.822 Contact with and (suspected) exposure to COVID-19; Z28.310 Unvaccinated for COVID-19; J45.909 Unspecified asthma, uncomplicated; F17.210 Nicotine dependence, cigarettes, uncomplicated; Z71.6 Tobacco abuse counseling; Z79.51 Long term (current) use of inhaled steroids; Z79.899 Other long term (current) drug therapy; Z71.51 Drug abuse counseling and surveillance of drug abuser; Z80.43 Family history of malignant neoplasm of testis; Z83.79 Family history of other diseases of the digestive system; Z81.8 Family history of other mental and behavioral disorders; Z80.0 Family history of malignant neoplasm of digestive organs; Z82.5 Family history of asthma and other chronic lower respiratory diseases; Z82.49 Family history of ischemic heart disease and other diseases of the circulatory system; Z82.69 Family history of other diseases of the musculoskeletal system and connective tissue
CPT/HCPCS: 32551; 36415; 36573; 71045; 71046; 71250; 71275; 77012; 80048; 80053; 82728; 82945; 83540; 83550; 83615; 83735; 83880; 84145; 84157; 84484; 85025; 85027; 85379; 85610; 85730; 87040; 87070; 87075; 87102; 87116; 87205; 87206; 87635; 88108; 88305; 89050; 93005; 93306; 94640; 96365; 99285

== ENCOUNTER → 2021-09-27 | Outpatient (CLI) | payer OTHER ==
--- NOTE | 2021-09-27 12:44 | XR ---
EXAMINATION TYPE: XR chest 2V DATE OF EXAM: 09/27/2021 COMPARISON: 09/01/2021 HISTORY: Chest pain TECHNIQUE: Frontal and lateral views of the chest are obtained. FINDINGS: There is no focal air space opacity. No evidence for pneumothorax. No pleural effusion. The cardiac silhouette size is within normal limits. The osseous structures are grossly intact. IMPRESSION: 1. No acute cardiopulmonary process.
== END | disposition home or self-care (01) ==
LOC: RADXRMAIN 12:25
PROVIDERS: ATTEND Internal Medicine Infectious Disease
DX: R07.9 Chest pain, unspecified (principal)
CPT/HCPCS: 71046

== ENCOUNTER → 2022-04-03 | Outpatient (CLI) | payer OTHER | END | disposition home or self-care (01) | LOC: LABWHC1 14:01 | PROVIDERS: ATTEND Physician Assistant | DX: G40.909 Epilepsy, unspecified, not intractable, without status epilepticus (principal) | CPT/HCPCS: 36415; 80164 ==

== ENCOUNTER 2022-07-04 00:55 | Emergency (ER) | payer OTHER ==
[2022-07-04 01:01] VITALS: TEMP 98.2
--- NOTE | 2022-07-04 01:42 | ED ---
General Adult HPI - General Chief complaint: Extremity Injury, Upper Stated complaint: Dislocated shoulder Time Seen by Provider: 07/04/22 01:05 Source: patient Mode of arrival: ambulatory Limitations: no limitations - History of Present Illness Initial comments: This is a 26-year-old male with a past medical history including multiple recurrent shoulder dislocations presents emergency department for a left shoulder dislocation. The patient stated that he was getting out of the shower when he was shaking water off and dislocated his left shoulder. He stated that normally when this happens she is able to pull the shoulder and pop it back into place but stated that he was unable to do so today speaking to the emergency department. The patient denied any fall or other trauma. The patient denied any numbness or tingling in the upper extremity. The patient denied any other acute pain or complaints at this time. - Related Data Home Medications Medication Instructions Recorded Confirmed Albuterol Sulfate [Proair Hfa] 1 - 2 puff INHALATION RT-Q6H PRN 08/24/21 08/24/21 Budesonide-Formot 160-4.5 Mcg 2 puff INHALATION RT-BID 08/24/21 08/24/21 [Symbicort 160-4.5 Mcg Inhaler] Buprenorphine/Naloxone 8Mg/2Mg 1 film SL BID 08/24/21 08/24/21 [Suboxone 8-2Mg Film] Cetirizine HCl 10 mg PO DAILY PRN 08/24/21 08/24/21 Divalproex Sodium [Depakote] 125 mg PO TID 08/24/21 08/24/21 Divalproex Sodium [Depakote] 500 mg PO TID 08/24/21 08/24/21 Ergocalciferol [Vitamin D2 (1250 1,250 mcg PO Q7D 08/24/21 08/24/21 Mcg = 23080 Iu)] FLUoxetine HCL [PROzac] 20 mg PO DAILY 08/24/21 08/24/21 OLANZapine [ZyPREXA] 10 mg PO HS 08/24/21 08/24/21 hydrOXYzine HCL [Atarax] 25 mg PO TID 08/24/21 08/24/21 Previous Rx's Medication Instructions Recorded Ferrous Sulfate [Iron (65 MG 325 mg PO W/LUNCH #30 tab 09/02/21 Elemental)] cefTRIAXone [Rocephin] 2,000 mg IVP Q24HR #14 each 09/02/21 metroNIDAZOLE [Flagyl] 500 mg PO TID #42 tab 09/02/21 Allergies Allergy/AdvReac Type Severity Reaction Status Date / Time No Known Allergies Allergy Verified 07/04/22 01:00 Review of Systems ROS Statement: Those systems with pertinent positive or pertinent negative responses have been documented in the HPI. ROS Other: All systems not noted in ROS Statement are negative. Past Medical History Past Medical History: Asthma Additional Past Medical History / Comment(s): takes albuterol and steroid inhaler for asthma, epilepsy treated with depakote per patient History of Any Multi-Drug Resistant Organisms: None Reported Past Surgical History: No Surgical Hx Reported Additional Past Anesthesia/Blood Transfusion Reaction / Comment(s): never had Past Psychological History: No Psychological Hx Reported Smoking Status: Current every day smoker Past Alcohol Use History: None Reported Past Drug Use History: None Reported - Past Family History Father Family Medical History: Cancer, Liver Disease Additional Family Medical History / Comment(s): testicular cancer, scizophrenia Mother Family Medical History: Asthma, Cancer (Rectal), Hypertension Additional Family Medical History / Comment(s): Chronic back pain General Exam Limitations: no limitations General appearance: alert, in no apparent distress Head exam: Present: atraumatic, normocephalic, normal inspection Eye exam: Present: normal appearance, PERRL Pupils: Present: normal accommodation ENT exam: Present: normal exam, normal oropharynx, mucous membranes moist Neck exam: Present: normal inspection, full ROM Respiratory exam: Present: normal lung sounds bilaterally Cardiovascular Exam: Present: regular rate, normal rhythm, normal heart sounds GI/Abdominal exam: Present: soft, normal bowel sounds Extremities exam: Present: other (Deformity of the left shoulder joint with decreased ROM 2/2 pain) Back exam: Present: normal inspection, full ROM Neurological exam: Present: alert, oriented X3, CN II-XII intact Psychiatric exam: Present: normal affect, normal mood Skin exam: Present: warm, dry Course Vital Signs 07/04/22 00:56 Temperature 98.2 F Pulse Rate 100 Respiratory 22 Rate Blood Pressure 150/79 O2 Sat by Pulse 99 Oximetry Procedures - Orthopedic Joint Reduction Joint #1 Consent Obtained: verbal consent Side: left Joint Reduction Location: shoulder Analgesia: none Shoulder Technique Used (if applicable): other (Weights, gravity) Post-Reduction Neuro Exam: intact Post-Reduction Vascular Exam: intact Post Reduction X-Ray Obtained: Yes Post Reduction X-Ray Results: reduced Splint Applied: No Patient Tolerated Procedure: well Additional Comments: Placed in sling Medical Decision Making - Medical Decision Making Was pt. sent in by a medical professional or institution (KEZIA Arrieta, [employer] C[employer]ER, urgent care, hospital, or fpc...) When possible be specific @ -No Did you speak to anyone other than the patient for history (EMS, parent, family, police, friend...)? What history was obtained from this source @ -No Did you review nursing and triage notes (agree or disagree)? Why? @ -I reviewed and agree with nursing and triage notes Were old charts reviewed (outside hosp., previous admission, EMS record, old EKG, old radiological studies, urgent care reports/EKG's, fpc records)? Report findings @ -No old charts were reviewed Differential Diagnosis (chest pain, altered mental status, abdominal pain women, abdominal pain men, vaginal bleeding, weakness, fever, dyspnea, syncope, headache, dizziness, GI bleed, back pain, seizure, CVA, palpatations, mental health)? @ -Shoulder dislocation, shoulder fracture, muscle strain EKG interpreted by me (3pts min.). @ -None X-rays interpreted by me (1pt min.). @ -X-ray of the left shoulder was obtained after the reduction and was interpreted by myself showing good reduction and good placement. CT interpreted by me (1pt min.). @ -None done U/S interpreted by me (1pt. min.). @ -None done What testing was considered but not performed or refused? (CT, X-rays, U/S, labs)? Why? @ -None What meds were considered but not given or refused? Why? @ -None Did you discuss the management of the patient with other professionals (professionals i.e. KEZIA Arrieta, MEDICAL BILLER CODER, lab, RT, psych nurse, psychiatric social worker supervisor, account director, teacher, ground nuclear weapons assembly officer, casework manager)? Give summary @ -No Was smoking cessation discussed for >3mins.? @ -No Was critical care preformed (if so, how long)? @ -No Were there social determinants of health that impacted care today? How? (Homelessness, low income, unemployed, alcoholism, drug addiction, transportation, low edu. Level, literacy, decrease access to med. care, snf, rehab)? @ -No Was there de-escalation of care discussed even if they declined (Discuss DNR or withdrawal of care, Hospice)? DNR status @ -No What co-morbidities impacted this encounter? (DM, HTN, Smoking, COPD, CAD, Cancer, CVA, ARF, Chemo, Hep., AIDS, mental health diagnosis, sleep apnea, morbid obesity)? @ -Multiple shoulder dislocations Was patient admitted / discharged? Hospital course, mention meds given and route, prescriptions, significant lab abnormalities, going to OR and other pertinent info. @ -The patient was seen and evaluated in the emergency department. On physical exam, the patient was in moderate distress secondary to left shoulder pain. Physical exam did show a deformity to left shoulder. Does the patient is had multiple shoulder dislocations and reductions at home, stating that he has had approximately 30 or so I'm of the patient did have a reduction performed by myself immediately on evaluation. The patient was able to lay prone with his left arm pain over the bed with weights hanging and per gravity, the patient's shoulder did reduce within 15 seconds of holding the weights to gravity. The patient had immediate improvement of his pain and shoulder x-ray showed good reduction. The patient was placed in a sling and was given orthopedic surgery follow-up. The patient was advised to follow-up for further workup and evaluation and to report back to the emergency department if his symptoms became acutely worse. The patient was agreeable to this and all his questions were answered appropriately. The patient was discharged home in stable condition. Undiagnosed new problem with uncertain prognosis? @ -No Drug Therapy requiring intensive monitoring for toxicity (Heparin, Nitro, Insulin, Cardizem)? @ -No Were any procedures done? @ -Yes, see above Diagnosis/symptom? @ -Left shoulder dislocation, reduced Acute, or Chronic, or Acute on Chronic? @ -Acute Uncomplicated (without systemic symptoms) or Complicated (systemic symptoms)? @ -Uncomplicated Side effects of treatment? @ -No Exacerbation, Progression, or Severe Exacerbation? @ -No Poses a threat to life or bodily function? How? (Chest pain, [place], [place], pneumonia, PE, COPD, DKA, ARF, appy, cholecystitis, CVA, Diverticulitis, Homicidal, Suicidal, threat to staff... and all critical care pts) @ -No Disposition Clinical Impression: Dislocation of left shoulder joint Disposition: HOME SELF-CARE Condition: Stable Instructions (If sedation given, give patient instructions): Shoulder Dislocation (ED) Is patient prescribed a controlled substance at d/c from ED?: No Referrals: Marquis Craig MD [Primary Care Provider] - 1-2 days Quinten Boucher MD [STAFF PHYSICIAN] - 1-2 days Time of Disposition: 01:20
[2022-07-04 01:56] VITALS: BP 127/82; PULSE 83; RESP 16
--- NOTE | 2022-07-04 04:01 | XR ---
EXAM: XR Left Shoulder Complete, 2 or More Views CLINICAL HISTORY: ITS.REASON XR Reason: Possible dislocation TECHNIQUE: Two or more views of the left shoulder. COMPARISON: No relevant prior studies available. FINDINGS: Bones/joints: Unremarkable. No acute fracture. No dislocation. Soft tissues: Unremarkable. IMPRESSION: Normal left shoulder x-rays.
== END 2022-07-04 01:56 | disposition home or self-care (01) ==
LOC: EC 00:55
DX: S43.005A Unspecified dislocation of left shoulder joint, initial encounter (principal); J45.909 Unspecified asthma, uncomplicated; F17.200 Nicotine dependence, unspecified, uncomplicated; Z79.51 Long term (current) use of inhaled steroids; Z79.899 Other long term (current) drug therapy; X58.XXXA Exposure to other specified factors, initial encounter
CPT/HCPCS: 23650; 99283

== ENCOUNTER 2022-09-23 20:39 | Emergency (ER) | payer OTHER ==
[2022-09-23 20:50] VITALS: RESP 18; TEMP 98.1
--- NOTE | 2022-09-23 21:45 | ED ---
Nausea/Vomiting/Diarrhea HPI - General Chief complaint: Nausea/Vomiting/Diarrhea Stated complaint: Weight Loss, Vomiting, Nausea Time Seen by Provider: 09/23/22 21:01 Source: patient, RN notes reviewed Mode of arrival: ambulatory Limitations: no limitations - History of Present Illness Initial comments: patient is a 27-year-old male presenting to the emergency room with complaints of chronic nausea and vomiting and concerns of weight loss over the last several months. He denies any nausea at this time and reports his last episode of vomiting was 2 days ago. He denies any constipation or diarrhea, fevers or chills. He has seen his primary care provider regarding the symptoms and was started on Prilosec which he states he has been taking along with utilizing Zofran which he he has nearly ran out of as needed. He does admit to daily marijuana use that began approximately 6 months ago and is currently working in an active environment 40 hours a week and was previously unemployed prior to his weight loss. He is very anxious regarding concerns of a family history of gastric cancer. He states that his primary care provider is planning on referring him to a gastroenterological specialist next week at his follow-up appointment. He had H. pylori testing and is scheduled for routine laboratory studies at his primary care provider's office next week. His H. pylori testing was negative. He denies any blood in his stool or black tarry stool. He denies any blood in his emesis. He reports that he typically vomits small amounts of food particles. He denies any other complaints or concerns including any chest pain, shortness of breath, abdominal pain, viral exposure, fevers or chills. he has a past medical history significant for asthma, seizures and polysubstance abuse but reports no substance abuse with the exception of marijuana since early 2021. - Related Data Home Medications Medication Instructions Recorded Confirmed Albuterol Sulfate [Proair Hfa] 1 - 2 puff INHALATION RT-Q6H PRN 08/24/21 08/24/21 Budesonide-Formot 160-4.5 Mcg 2 puff INHALATION RT-BID 08/24/21 08/24/21 [Symbicort 160-4.5 Mcg Inhaler] Buprenorphine/Naloxone 8Mg/2Mg 1 film SL BID 08/24/21 08/24/21 [Suboxone 8-2Mg Film] Cetirizine HCl 10 mg PO DAILY PRN 08/24/21 08/24/21 Divalproex Sodium [Depakote] 125 mg PO TID 08/24/21 08/24/21 Divalproex Sodium [Depakote] 500 mg PO TID 08/24/21 08/24/21 Ergocalciferol [Vitamin D2 (1250 1,250 mcg PO Q7D 08/24/21 08/24/21 Mcg = 57655 Iu)] FLUoxetine HCL [PROzac] 20 mg PO DAILY 08/24/21 08/24/21 OLANZapine [ZyPREXA] 10 mg PO HS 08/24/21 08/24/21 hydrOXYzine HCL [Atarax] 25 mg PO TID 08/24/21 08/24/21 Previous Rx's Medication Instructions Recorded Ferrous Sulfate [Iron (65 MG 325 mg PO W/LUNCH #30 tab 09/02/21 Elemental)] cefTRIAXone [Rocephin] 2,000 mg IVP Q24HR #14 each 09/02/21 metroNIDAZOLE [Flagyl] 500 mg PO TID #42 tab 09/02/21 Ondansetron Odt [Zofran Odt] 8 mg PO Q8HR PRN 7 Days #21 tab 09/23/22 Allergies Allergy/AdvReac Type Severity Reaction Status Date / Time No Known Allergies Allergy Verified 07/04/22 01:00 Review of Systems ROS Statement: Those systems with pertinent positive or pertinent negative responses have been documented in the HPI. ROS Other: All systems not noted in ROS Statement are negative. Past Medical History Past Medical History: Asthma, Seizure Disorder Additional Past Medical History / Comment(s): takes albuterol and steroid inhaler for asthma, epilepsy treated with depakote per patient History of Any Multi-Drug Resistant Organisms: None Reported Past Surgical History: No Surgical Hx Reported Additional Past Anesthesia/Blood Transfusion Reaction / Comment(s): never had Past Psychological History: No Psychological Hx Reported Smoking Status: Current every day smoker Past Alcohol Use History: None Reported Past Drug Use History: None Reported - Past Family History Father Family Medical History: Cancer, Liver Disease Additional Family Medical History / Comment(s): testicular cancer, scizophrenia Mother Family Medical History: Asthma, Cancer (Rectal), Hypertension Additional Family Medical History / Comment(s): Chronic back pain General Exam Limitations: no limitations General appearance: alert, in no apparent distress Head exam: Present: atraumatic, normocephalic, normal inspection Eye exam: Present: normal appearance, PERRL, EOMI. Absent: scleral icterus, conjunctival injection, periorbital swelling ENT exam: Present: normal exam, mucous membranes moist Neck exam: Present: normal inspection, full ROM Respiratory exam: Absent: respiratory distress, accessory muscle use Cardiovascular Exam: Present: regular rate GI/Abdominal exam: Present: soft. Absent: distended, tenderness, guarding, rebound, rigid Extremities exam: Present: normal inspection. Absent: pedal edema, joint swelling Back exam: Present: normal inspection Neurological exam: Present: alert, oriented X3, CN II-XII intact Psychiatric exam: Present: anxious Skin exam: Present: warm, dry, intact, normal color. Absent: rash Course Vital Signs 09/23/22 20:48 Temperature 98.1 F Pulse Rate 103 H Respiratory 18 Rate Blood Pressure 127/71 O2 Sat by Pulse 100 Oximetry Medical Decision Making - Medical Decision Making Was pt. sent in by a medical professional or institution (, [place], EYEGLASS FITTER, urgent care, hospital, or senior care...) When possible be specific @ -No Did you speak to anyone other than the patient for history (EMS, parent, family, police, friend...)? What history was obtained from this source @ -No Did you review nursing and triage notes (agree or disagree)? Why? @ -I reviewed and agree with nursing and triage notes Were old charts reviewed (outside hosp., previous admission, EMS record, old EKG, old radiological studies, urgent care reports/EKG's, senior care records)? Report findings @ -No old charts were reviewed Differential Diagnosis (chest pain, altered mental status, abdominal pain women, abdominal pain men, vaginal bleeding, weakness, fever, dyspnea, syncope, headache, dizziness, GI bleed, back pain, seizure, CVA, palpatations, mental health, musculoskeletal)? @ -Differential nausea and vomiting: Chronic gastroenteritis, inflammatory bowel, cyclic vomiting, gastroparesis, this is not meant to be an all-inclusive list EKG interpreted by me (3pts min.). @ -None done X-rays interpreted by me (1pt min.). @ -None done CT interpreted by me (1pt min.). @ -None done U/S interpreted by me (1pt. min.). @ -None done What testing was considered but not performed or refused? (CT, X-rays, U/S, labs)? Why? @ -CBC, CMP, amylase, lipase and imaging of abdomen considered but deferred due to chronic symptoms without any nausea on presentation or vomiting in the last 48 hours. What meds were considered but not given or refused? Why? @ -Antiemetics and IV hydration considered but deferred due to normal vital signs and absence of nausea upon evaluation. Did you discuss the management of the patient with other professionals (professionals i.e. , PA, EYEGLASS FITTER, lab, RT, psych nurse, social media assistant, underground drill operator, teacher, seismology technical officer, pillowcase maker)? Give summary @ -No Was smoking cessation discussed for >3mins.? @ -No Was critical care preformed (if so, how long)? @ -No Were there social determinants of health that impacted care today? How? (Homelessness, low income, unemployed, alcoholism, drug addiction, transportation, low edu. Level, literacy, decrease access to med. care, snf, rehab)? @ -No Was there de-escalation of care discussed even if they declined (Discuss DNR or withdrawal of care, Hospice)? DNR status @ -No What co-morbidities impacted this encounter? (DM, HTN, Smoking, COPD, CAD, Cancer, CVA, ARF, Chemo, Hep., AIDS, mental health diagnosis, sleep apnea, morbid obesity)? @ -None Was patient admitted / discharged? Hospital course, mention meds given and route, prescriptions, significant lab abnormalities, going to OR and other pertinent info. @ -27-year-old male presenting to the emergency room with complaints of chronic nausea and vomiting and concerns of weight loss over the last several months. He denies any nausea at this time and reports his last episode of vomiting was 2 days ago. He denies any constipation or diarrhea, fevers or chills. He has seen his primary care provider regarding the symptoms and was started on Prilosec which he states he has been taking along with utilizing Zofran which he he has nearly ran out of as needed. He does admit to daily marijuana use that began approximately 6 months ago and is currently working in an active environment 40 hours a week and was previously unemployed prior to his weight loss. No acute symptoms on presentation. No vomiting in the last 48 hours. No nausea at this time. No abdominal pain, fevers, changes in bowels or other concerning symptoms requiring workup with diagnostic imaging or laboratory studies. Vital signs stable not requiring any medication administration. Long discussion with patient regarding seborrheic vomiting associated marijuana along with ideal body weight for his height, weight loss underlying etiology. Encouraged follow-up with primary care provider. Encouraged sensation of marijuana use and utilization of food log to evaluate dietary intake. Advise continued follow-up with primary care provider and continuation of Prilosec along with Zofran as needed. Patient is requesting refill of Zofran will provide. Questions and concerns answered. Return parameters to the emergency room discussed. Will discharge home in stable condition with a refill of Zofran 8 mg ODT to utilize for chronic nausea and vomiting as needed encouraging follow-up with primary care provider. Undiagnosed new problem with uncertain prognosis? @ -No Drug Therapy requiring intensive monitoring for toxicity (Heparin, Nitro, Insulin, Cardizem)? @ -No Were any procedures done? @ -No Diagnosis/symptom? @ -Nausea and vomiting Acute, or Chronic, or Acute on Chronic? @ -Chronic Uncomplicated (without systemic symptoms) or Complicated (systemic symptoms)? @ -Uncomplicated Side effects of treatment? @ -No Exacerbation, Progression, or Severe Exacerbation? @ -No Poses a threat to life or bodily function? How? (Chest pain, [place], [place], pneumonia, PE, COPD, DKA, ARF, appy, cholecystitis, CVA, Diverticulitis, Homicidal, Suicidal, threat to staff... and all critical care pts) @ -No Case discussed with Dr. Jones Disposition Clinical Impression: Nausea and vomiting Disposition: HOME SELF-CARE Condition: Stable Instructions (If sedation given, give patient instructions): Acute Nausea and Vomiting (ED) Additional Instructions: Utilize Zofran prescription as needed for nausea and vomiting. Stoppage of daily marijuana use is encouraged to help prevent cyclic nausea and vomiting. Monitoring daily food intake with a food diary is encouraged to evaluate weight loss. Please follow-up with your primary care provider.Please return to the Emergency Department if symptoms worsen or any other concerns. Prescriptions: Ondansetron Odt [Zofran Odt] 8 mg PO Q8HR PRN 7 Days #21 tab PRN Reason: Nausea Is patient prescribed a controlled substance at d/c from ED?: No Referrals: Marquis Craig MD [Primary Care Provider] - 1-2 days Time of Disposition: 21:45
[2022-09-23 21:53] VITALS: BP 120/72; PULSE 70
== END 2022-09-23 21:53 | disposition home or self-care (01) ==
LOC: EC 20:39
DX: R11.2 Nausea with vomiting, unspecified (principal); J45.909 Unspecified asthma, uncomplicated; F17.200 Nicotine dependence, unspecified, uncomplicated; Z79.899 Other long term (current) drug therapy
CPT/HCPCS: 99283

== ENCOUNTER 2022-11-29 09:12 | Day surgery (SDC) | payer OTHER ==
[2022-11-29] MEDS ORDERED: LIDOCAINE 1% (10MG/ML) FOR IV START INTRADERMA PRN (09:35)
[2022-11-29] MEDS ORDERED: LACTATED RINGERS 1,000 ML IV SCH (09:35)
[2022-11-29 09:41] VITALS: TEMP 97.9
[2022-11-29] MEDS ORDERED: LIDOCAINE 2% INJ 20 MG/ML (2 ML VIAL) ONE (10:10)
[2022-11-29] MEDS ORDERED: PROPOFOL 10 MG/ML 20 ML VIAL IV ONE (10:10)
--- NOTE | 2022-11-29 10:21 | P.PCN ---
Date of Procedure: 11/29/22 Procedure(s) Performed: BRIEF HISTORY: Patient is a 27-year-old, pleasant, white male scheduled for an upper endoscopy as a part of evaluation of chronic intermittent nausea vomiting for the last 18 months duration. He has these episodes ONCE a day and he lost about 40 pounds in the last 4 months. He tried Zofran with some help. No help with PPIs in the past.. PROCEDURE PERFORMED: Esophagogastroduodenoscopy with biopsy. PREOPERATIVE DIAGNOSIS: Chronic nausea, vomiting. IV sedation per anesthesia. PROCEDURE: After informed consent was obtained, the patient was brought into the endoscopy unit. IV sedation was administered by Anesthesia under continuous monitoring. Initially the Olympus GIF-140 video endoscope was inserted into the mouth. Esophagus intubated without any difficulty. It was gradually advanced into the stomach and duodenum and carefully examined. The bulb and the second part of the duodenum appeared normal. Biopsies were done from the duodenum to rule out celiac disease. The scope at this time was withdrawn to the stomach, adequately insufflated with air, and upon careful examination, mucosa of the antrum, had mild patchy areas of erythema and biopsies were done from this area. Mucosa of the body, cardia and the fundus appeared normal. The scope was then withdrawn into the esophagus. The GE junction was located at 41 cm from the incisors. The esophagus appeared normal. There were no erosions or ulcerations seen, biopsies were done from the distal esophagus and the patient tolerated the procedure well. IMPRESSION: 1. Mild antral gastritis. 2. No evidence of esophagitis, peptic ulcer disease or gastric outlet obstruction. RECOMMENDATIONS: The findings of this examination were discussed with the patient as well as his family. Follow with the biopsy results. He was advised to increase Zofran twice daily. Quit smoking marijuana as he may have cannabis hyperemesis syndrome causing significant nausea vomiting.
[2022-11-29 10:25] VITALS: RESP 14
[2022-11-29 10:39] VITALS: BP 119/75; PULSE 74
== END 2022-11-29 11:02 | disposition home or self-care (01) ==
LOC: ORWHC2ENDO 09:12
PROVIDERS: ATTEND Internal Medicine Gastroenterology
DX: K29.50 Unspecified chronic gastritis without bleeding (principal); J45.909 Unspecified asthma, uncomplicated; F31.9 Bipolar disorder, unspecified; F17.200 Nicotine dependence, unspecified, uncomplicated; Z79.51 Long term (current) use of inhaled steroids; Z79.891 Long term (current) use of opiate analgesic; Z79.83 Long term (current) use of bisphosphonates; Z79.899 Other long term (current) drug therapy
CPT/HCPCS: 88305; 43239; J2704; J2001

== ENCOUNTER → 2022-12-05 | Outpatient (CLI) | payer OTHER ==
--- NOTE | 2022-12-07 15:27 | MR ---
EXAMINATION TYPE: MR brain wo con DATE OF EXAM: 12/05/2022 COMPARISON: None this location HISTORY: MRI from 2018 showed an arachnoid cyst, follow-up, hearing loss CONTRAST: Performed utilizing 0 mL intravenous Gadavist gadolinium contrast. TECHNIQUE: Multiplanar, multiecho imaging on a 3.0 Keily magnet is performed through the brain. Stud y is performed within 24 hours of arrival to the hospital. The craniovertebral junction is normal. The pituitary is normal. There is a middle cranial fossa fluid signal area with impression on the anterior left temporal lobe. Finding can be compatible with an arachnoid cyst. This area measures approximately 4.6 x 3.8 x 6.4 c m. This extends towards the sylvian fissure. Adjacent brain appears intact without edema. There is so me mass effect on the anterior temporal lobe. Diffusion-weighted imaging is performed. No abnormal hyperintensity is present to suggest an acute i ntracranial infarct or acute ischemic change. Signal within the brain otherwise appears normal. Ventricles and sulci are otherwise appropriate for the patient age. IMPRESSION: 1. Arachnoid cyst in the left middle cranial fossa extending into the left sylvian fissure. There is some mass effect on the left temporal lobe without signal change within the adjacent brain.
== END | disposition home or self-care (01) ==
LOC: RADMRIMAIN 19:28
PROVIDERS: ATTEND Family Medicine
DX: G93.0 Cerebral cysts (principal); H91.90 Unspecified hearing loss, unspecified ear; G93.89 Other specified disorders of brain
CPT/HCPCS: 70551